=== PATIENT | male | born 1935 | race Caucasian/White ===

== ENCOUNTER → 2016-12-23 | Outpatient (CLI) | payer OTHER, BC | LOC: FIMAGING 12:07 | PROVIDERS: ATTEND Internal Medicine | DX: R05 Cough (principal); G70.00 Myasthenia gravis without (acute) exacerbation; R91.8 Other nonspecific abnormal finding of lung field; E78.00 Pure hypercholesterolemia, unspecified | CPT/HCPCS: 71020; G0463 ==

== ENCOUNTER 2017-06-22 15:47 | Emergency (ER) | payer OTHER, BC ==
[2017-06-22 15:59] VITALS: RESP 18; O2SAT 94
--- NOTE | 2017-06-22 16:46 | EDPHY ---
H & P Time Seen by Provider: 06/22/17 16:19 HPI/ROS: Chief complaint. Weakness, trouble swallowing HPI. 81-year-old male presents emergency department with several complaints. For the last week he has had some trouble swallowing and choking with food. He says his tongue feels heavy. This was intermittent over the past week however over the past 2-3 days it seems to be somewhat worse. Yesterday he fell in the yd after slipping on snow and could not get up by himself. He had transient neck pain yesterday after the fall but no continuing symptoms and no neck pain now. He does have a history of myasthenia gravis. He has had no fever, no chest discomfort no shortness of breath. ROS Constitutional. no fever/chills, no weakness Eyes. no problems with vision ENT. Trouble swallowing Cardiovascular. no chest pain Respiratory. no shortness of breath, no cough Abdominal. no abdominal pain, no nausea/vomiting, no diarrhea . no problems urinating MS. neck pain yesterday but not today Skin. no rash Lymph. no swollen glands Neuro. no headache, no dizziness, no difficulty walking or with speech Past Medical/Surgical History: Past medical history significant for myasthenia gravis, hypertension, atrial fibrillation, CVA Social History: , nonsmoker, no alcohol Smoking Status: Former smoker Physical Exam: General Appearance: Alert well-developed male mild distress vital signs are stable Eyes: Pupils equal and round no pallor or injection. ENT, pharynx without injection or swelling. Mucous membranes are moist. Speaking in full sentences. No stridor. Handling secretions Respiratory: There are no retractions, lungs are clear to auscultation. Cardiovascular: Regular rate and rhythm. Gastrointestinal: Abdomen is soft and nontender, no masses, bowel sounds normal. Neurological: Awake and alert, sensory and motor exams grossly normal. Skin: Warm and dry, no rashes. Musculoskeletal: Neck is supple nontender. No pain with palpation either to paracervical muscles or on the C-spine. No TLS spine tenderness Extremities symmetrical, full range of motion. Psychiatric: Patient is oriented X 3, there is no agitation. Constitutional: Initial Vital Signs Temperature (C) 36.4 C 06/22/17 15:54 Heart Rate 84 06/22/17 15:54 Respiratory Rate 18 06/22/17 15:54 Blood Pressure 162/86 H 06/22/17 15:54 O2 Sat (%) 94 06/22/17 15:54 O2 Delivery Mode Room Air Allergies/Adverse Reactions: No Known Allergies Allergy (Verified 06/22/17 15:59) Home Medications: Medication Instructions Recorded Apixaban [Eliquis] 5 mg PO BID 08/03/15 Atorvastatin Calcium [Lipitor 40 40 mg PO HS 08/03/15 mg (*)] Metoprolol Succinate Xr [Toprol Xl 25 mg PO DAILY 08/03/15 25 mg (*)] Pyridostigmine [place] [Mestinon 180 mg PO BID 08/03/15 Timespan] Triamterene/Hctz 37.5/25 1 tab PO DAILY 08/03/15 [Maxzide-25 (*)] levETIRAcetam [Keppra 500 mg (*)] 500 mg PO BID #60 tab 08/04/15 Epinastine HCl [Elestat] 5 ml OP 06/22/17 Medical Decision Making - Diagnostics Imaging Results: Imaging Impressions Cervical Spine X-Ray 06/22/17 16:47 Impression: 1. Mild to moderate degenerative disk disease mid to lower cervical spine along with facet hypertrophy. 2. Mild anterior subluxation of C5 on C6. This is present on prior CT study from July,. Chest X-Ray 06/22/17 16:47 Impression: 1. Stable calcified pleural plaques bilaterally. 2. Mild interval increase in interstitial markings at the lung bases. This could be from mild dependent interstitial edema/fluid overload. Interstitial infiltrates are felt to be possible as well. Soft Tissue Neck X-Ray 06/22/17 16:47 Impression: 1. No significant soft tissue thickening about the neck. 2. 3 mm of anterior subluxation of C5 on C6. 3. Mild to moderate degenerative disk disease mid to lower cervical spine. Cervical spine x-ray shows mild anterior subluxation of C5 on C6. Soft tissue of the neck shows no evidence of epiglottitis or significant swelling Chest x-ray reviewed by me shows no evidence for pneumonia Procedures: IV normal saline ED Course/Re-evaluation: I consulted and discussed case with Dr. buitrago, neurology who recommends no treatment in the emergency department tonight. He feels that this could well be from my steamy a gravis exacerbation. He will see the patient in the office in the morning. Re-evaluation 1824--patient is stable. No choking or trouble swallowing in the emergency department. No stridor. Continuing to speak in full sentences. The patient and his and I discussed laboratory and imaging studies. We discussed treatment plan including importance of follow-up tomorrow morning with Dr. buitrago. We discussed criteria for return tonight. They expressed understanding and agreement Differential Diagnosis: This is likely a myasthenia gravis exacerbation. No acute findings of airway obstruction or evidence for epiglottitis. - Data Points Laboratory Results: Laboratory Results 06/22/17 16:55 06/22/17 16:55 06/22/17 06/22/17 16:55 16:55 WBC 8.56 10^3/uL 10^3/uL (3.80-9.50) RBC 5.32 10^6/uL 10^6/uL (4.40-6.38) Hgb 16.5 g/dL g/dL (13.7-17.5) Hct 46.8 % % (40.0-51.0) MCV 88.0 fL fL (81.5-99.8) MCH 31.0 pg pg (27.9-34.1) MCHC 35.3 g/dL g/dL (32.4-36.7) RDW 14.7 % % (11.5-15.2) Plt Count 164 10^3/uL 10^3/uL (150-400) MPV 10.2 fL fL (8.7-11.7) Neut % (Auto) 66.1 % % (39.3-74.2) Lymph % (Auto) 19.9 % % (15.0-45.0) [place] % (Auto) 11.0 % % (4.5-13.0) Eos % (Auto) 1.9 % % (0.6-7.6) Baso % (Auto) 0.6 % % (0.3-1.7) Nucleat RBC Rel Count 0.0 % % (0.0-0.2) Absolute Neuts (auto) 5.67 10^3/uL 10^3/uL (1.70-6.50) Absolute Lymphs (auto) 1.70 10^3/uL 10^3/uL (1.00-3.00) Absolute Monos (auto) 0.94 10^3/uL H 10^3/uL (0.30-0.80) Absolute Eos (auto) 0.16 10^3/uL 10^3/uL (0.03-0.40) Absolute Basos (auto) 0.05 10^3/uL 10^3/uL (0.02-0.10) Absolute Nucleated RBC 0.00 10^3/uL 10^3/uL (0-0.01) Immature Gran % 0.5 % % (0.0-1.1) Immature Gran # 0.04 10^3/uL 10^3/uL (0.00-0.10) Sodium 136 mEq/L mEq/L (134-144) Potassium 3.8 mEq/L mEq/L (3.5-5.2) Chloride 104 mEq/L mEq/L (97-110) Carbon Dioxide 25 mEq/l mEq/l (22-31) Anion Gap 7 mEq/L L mEq/L (8-16) BUN 10 mg/dL mg/dL (7-23) Creatinine 0.9 mg/dL mg/dL (0.7-1.3) Estimated GFR > 60 Glucose 97 mg/dL mg/dL (70-100) Calcium 9.7 mg/dL mg/dL (8.5-10.4) Departure - Departure Disposition: Home, Routine, Self-Care Clinical Impression: Myasthenia gravis Condition: Good Instructions: Myasthenia Gravis (ED) Additional Instructions: Caution with eating and drinking tonight to prevent choking. Call Dr. gomez's office tomorrow morning at about 830 in the morning for follow-up appointment tomorrow. Return tonight for worsening symptoms Referrals: Terrence Kennedy MD [Primary Care Provider] - As per Instructions Shelton Gomez DO [Medical Doctor] - 1 day without fail
[2017-06-22 17:10] LABS: % IMMATURE GRANULYOCYTES 0.5 % (0.0-1.1); ABSOLUTE IMMATURE GRANULOCYTES 0.04 10^3/uL (0.00-0.10); ADD DIFF? NO; ADD MORPH? NO; ADD SCAN? NO; ATYPICAL LYMPHOCYTE FLAG 10 (0-99); FRAGMENT RBC FLAG 0 (0-99); HEMATOCRIT 46.8 % (40.0-51.0); HEMOGLOBIN 16.5 g/dL (13.7-17.5); LEFT SHIFT FLG 0 (0-99); LIPEMIA HEMOLYSIS FLAG 90 (0-99); MEAN CELL HEMOGLOBIN CONCENTR. 35.3 g/dL (32.4-36.7); MEAN PLATELET VOLUME 10.2 fL (8.7-11.7); PLATELET CLUMPS FLAG 30 (0-99); PLATELET COUNT 164 10^3/uL (150-400); RED BLOOD CELL COUNT 5.32 10^6/uL (4.40-6.38); RED CELL DISTRIBUTION WIDTH 14.7 % (11.5-15.2)
[2017-06-22 17:16] LABS: ANION GAP 7 mEq/L (8-16); CALCIUM 9.7 mg/dL (8.5-10.4); CARBON DIOXIDE 25 mEq/l (22-31); CHLORIDE 104 mEq/L (97-110); CREATININE 0.9 mg/dL (0.7-1.3); GLOMERULAR FILTRATION RATE > 60; GLUCOSE 97 mg/dL (70-100); POTASSIUM 3.8 mEq/L (3.5-5.2); SODIUM 136 mEq/L (134-144)
[2017-06-22 18:40] VITALS: BP 145/81; PULSE 85; TEMP 98.4
== END 2017-06-22 18:39 | disposition home or self-care (01) ==
DX: G70.00 Myasthenia gravis without (acute) exacerbation (principal); I10 Essential (primary) hypertension; Z79.01 Long term (current) use of anticoagulants; Z86.73 Personal history of transient ischemic attack (TIA), and cerebral infarction without residual deficits; Z87.891 Personal history of nicotine dependence

== ENCOUNTER 2017-06-23 16:01 | Inpatient (IN) | payer OTHER, BC ==
--- NOTE | 2017-06-23 16:28 | PDCONSULT ---
Direct Service Worker Note: Case discussed with Dr. Marck Vallejo. Pt appears to be in myasthenic crisis when seen at my office. Recommend admission for IVIG 2 g/kg divided over 5 days. Begin prednisone 10 mg qd today. Stop Mestinon TS 180 mg bid. Call neurology product inspection coordinator if needed. Pt will need observation for any respiratory problems as well so ICU admission could be considered based on hospitalist opinion. I will formally round on patient tomorrow am.
[2017-06-23] MEDS ORDERED: predniSONE 20 MG TAB PO ONE (16:48)
--- NOTE | 2017-06-23 17:07 | EDPHY ---
H & P Stated Complaint: SWELLING/PAIN IN THROAT/CAN'T SWALLOW/SENT BY DR LLOYD FOR ADMIT Time Seen by Provider: 06/23/17 16:31 HPI/ROS: CHIEF COMPLAINT: Weakness, difficulty swallowing HISTORY OF PRESENT ILLNESS: The patient is an 81-year-old man with a history of myasthenia gravis. He has been taking Mestinon. He was seen here in the ER yesterday for difficulty swallowing and had x-rays done of his neck that were unremarkable. He was recommended to follow up with his neurologist today. He saw Dr. lloyd who suspects a myasthenic crisis and sent him to the ER to receive prednisone and be admitted for IVIG. The patient was also instructed to discontinue his Mestinon. On my evaluation the patient states that he can walk and that he does not feel that bad but his states that he cannot. He is not in any respiratory distress. REVIEW OF SYSTEMS: Constitutional: denies: chills, fever, recent illness, recent injury EENTM: denies: blurred vision, double vision, nose congestion Respiratory: denies: cough, shortness of breath Cardiac: denies: chest pain, irregular heart rate, lightheadedness, palpitations Gastrointestinal/Abdominal: denies: abdominal pain, diarrhea, nausea, vomiting, blood streaked stools Genitourinary: denies: dysuria, frequency, hematuria, pain Musculoskeletal: denies: joint pain, muscle pain Skin: denies: lesions, rash, jaundice, bruising Neurological: Generalized weakness Hematologic/Lymphatic: denies: blood clots, easy bleeding, easy bruising Immunologic/allergic: denies: HIV/AIDS, transplant EXAM: GENERAL: Well-appearing, well-nourished and in no acute distress. HEAD: Atraumatic, normocephalic. EYES: Pupils equal round and reactive to light, extraocular movements intact, sclera anicteric, conjunctiva are normal. ENT: TMs normal, nares patent, oropharynx clear without exudates. Moist mucous membranes. Normal swallowing NECK: Normal range of motion, supple without lymphadenopathy or JVD. LUNGS: Breath sounds clear to auscultation bilaterally and equal. No wheezes rales or rhonchi. HEART: Regular rate and rhythm without murmurs, rubs or gallops. ABDOMEN: Soft, nontender, normoactive bowel sounds. No guarding, no rebound. No masses appreciated. BACK: No CVA tenderness, no spinal tenderness, step-offs or deformities EXTREMITIES: Normal range of motion, no pitting or edema. No clubbing or cyanosis. NEUROLOGICAL: Cranial nerves II through XII grossly intact. Normal speech, normal gait. 4/5 strength throughout, normal movement in all extremities, normal sensation PSYCH: Normal mood, normal affect. SKIN: Warm, dry, normal turgor, no visible rashes or lesions. Source: Patient Exam Limitations: No limitations - Personal History Current Tetanus/Diphtheria Vaccine: Yes - Medical/Surgical History Hx Asthma: No Hx Chronic Respiratory Disease: No Hx Diabetes: No Hx Cardiac Disease: Yes Hx Renal Disease: No Hx Cirrhosis: No Hx Alcoholism: No Hx HIV/AIDS: No Hx Splenectomy or Spleen Trauma: No Other PMH: HTN, myasthenia gravis- on mestonin. afib- on eloquis, tonsillectomy age 2. CVA - Family History Significant Family History: No pertinent family hx - Social History Smoking Status: Former smoker Alcohol Use: Sober Drug Use: None Constitutional: Initial Vital Signs Temperature (C) 37 C 06/23/17 16:05 Heart Rate 80 06/23/17 16:05 Respiratory Rate 20 06/23/17 16:05 Blood Pressure 125/94 H 06/23/17 16:05 O2 Sat (%) 95 06/23/17 16:05 O2 Delivery Mode Room Air Allergies/Adverse Reactions: No Known Allergies Allergy (Verified 06/23/17 16:02) Home Medications: Medication Instructions Recorded Apixaban [Eliquis] 5 mg PO BID 08/03/15 Atorvastatin Calcium [Lipitor 40 40 mg PO HS 08/03/15 mg (*)] Metoprolol Succinate Xr [Toprol Xl 25 mg PO DAILY 08/03/15 25 mg (*)] Pyridostigmine [place] [Mestinon 180 mg PO BID 08/03/15 Timespan] Triamterene/Hctz 37.5/25 1 tab PO DAILY 08/03/15 [Maxzide-25 (*)] Epinastine HCl [Elestat] 5 ml OP BID PRN 06/22/17 Aspirin EC [Aspirin EC 81 mg (*)] 81 mg PO DAILY 06/23/17 Multivitamins [Multivitamin (*)] 1 each PO DAILY 06/23/17 Medical Decision Making ED Course/Re-evaluation: 5:05 p.m. I discussed the case with Dr. Merlos who will admit to the medical service and began IVIG. Differential Diagnosis: Partial list of the Differential diagnosis considered include but were not limited to; myasthenia gravis crisis, generalized weakness, electrolyte abnormality, hypoglycemia and although unlikely based on the history and physical exam, I also considered CVA, sepsis. - Data Points Laboratory Results: Laboratory Results 06/23/17 16:30 06/23/17 16:30 06/23/17 06/23/17 06/23/17 16:30 16:30 16:30 WBC 9.42 10^3/uL 10^3/uL (3.80-9.50) RBC 5.61 10^6/uL 10^6/uL (4.40-6.38) Hgb 17.5 g/dL g/dL (13.7-17.5) Hct 49.5 % % (40.0-51.0) MCV 88.2 fL fL (81.5-99.8) MCH 31.2 pg pg (27.9-34.1) MCHC 35.4 g/dL g/dL (32.4-36.7) RDW 14.7 % % (11.5-15.2) Plt Count 201 10^3/uL 10^3/uL (150-400) MPV 10.0 fL fL (8.7-11.7) Neut % (Auto) 67.3 % % (39.3-74.2) Lymph % (Auto) 19.7 % % (15.0-45.0) [place] % (Auto) 10.7 % % (4.5-13.0) Eos % (Auto) 1.2 % % (0.6-7.6) Baso % (Auto) 0.6 % % (0.3-1.7) Nucleat RBC Rel Count 0.0 % % (0.0-0.2) Absolute Neuts (auto) 6.33 10^3/uL 10^3/uL (1.70-6.50) Absolute Lymphs (auto) 1.86 10^3/uL 10^3/uL (1.00-3.00) Absolute Monos (auto) 1.01 10^3/uL H 10^3/uL (0.30-0.80) Absolute Eos (auto) 0.11 10^3/uL 10^3/uL (0.03-0.40) Absolute Basos (auto) 0.06 10^3/uL 10^3/uL (0.02-0.10) Absolute Nucleated RBC 0.00 10^3/uL 10^3/uL (0-0.01) Immature Gran % 0.5 % % (0.0-1.1) Immature Gran # 0.05 10^3/uL 10^3/uL (0.00-0.10) PT 16.2 SEC H SEC (12.0-15.0) INR 1.30 H (0.83-1.16) APTT 37.7 SEC SEC (23.0-38.0) Sodium 138 mEq/L mEq/L (134-144) Potassium 3.7 mEq/L mEq/L (3.5-5.2) Chloride 106 mEq/L mEq/L (97-110) Carbon Dioxide 24 mEq/l mEq/l (22-31) Anion Gap 8 mEq/L mEq/L (8-16) BUN 10 mg/dL mg/dL (7-23) Creatinine 0.9 mg/dL mg/dL (0.7-1.3) Estimated GFR > 60 Glucose 109 mg/dL H mg/dL (70-100) Calcium 9.6 mg/dL mg/dL (8.5-10.4) Medications Given: Acetaminophen (Tylenol) 650 mg PO DAILY@1899 [facility] Stop: 06/27/17 19:01 Last Admin: 06/23/17 18:43 Dose: 650 mg Diphenhydramine HCl (Benadryl) 25 mg PO DAILY@1899 [facility] Stop: 06/27/17 19:01 Last Admin: 06/23/17 18:43 Dose: 25 mg Immune Globulin (Privigen 20 Gm) 20 gm IV DAILY@1999 [facility] PRN Reason: Protocol Stop: 06/27/17 20:01 Last Admin: 06/23/17 19:39 Dose: 20 gm Immune Globulin (Privigen 10 Gm) 10 gm IV DAILY@1999 [facility] Stop: 06/27/17 20:01 Last Admin: 06/23/17 19:39 Dose: 10 gm Immune Globulin (Privigen 5 Gm) 5 gm IV DAILY@1999 [facility] Stop: 06/27/17 20:01 Last Admin: 06/23/17 19:38 Dose: 5 gm Discontinued Medications Prednisone (Prednisone) 10 mg PO EDNOW ONE Stop: 06/23/17 16:49 Last Admin: 06/23/17 17:02 Dose: 10 mg Departure - Departure Disposition: [facility] Acute Clinical Impression: Myasthenia exacerbation Condition: Fair
[2017-06-23 17:17] LABS: % IMMATURE GRANULYOCYTES 0.5 % (0.0-1.1); ABSOLUTE IMMATURE GRANULOCYTES 0.05 10^3/uL (0.00-0.10); ADD DIFF? NO; ADD MORPH? NO; ADD SCAN? NO; ATYPICAL LYMPHOCYTE FLAG 0 (0-99); FRAGMENT RBC FLAG 0 (0-99); HEMATOCRIT 49.5 % (40.0-51.0); HEMOGLOBIN 17.5 g/dL (13.7-17.5); LEFT SHIFT FLG 0 (0-99); LIPEMIA HEMOLYSIS FLAG 90 (0-99); MEAN CELL HEMOGLOBIN 31.2 pg (27.9-34.1); MEAN CELL HEMOGLOBIN CONCENTR. 35.4 g/dL (32.4-36.7); MEAN CELL VOLUME 88.2 fL (81.5-99.8); PLATELET CLUMPS FLAG 0 (0-99); PLATELET COUNT 201 10^3/uL (150-400); RED BLOOD CELL COUNT 5.61 10^6/uL (4.40-6.38); RED CELL DISTRIBUTION WIDTH 14.7 % (11.5-15.2)
[2017-06-23 17:22] LABS: INR 1.3 (0.83-1.16); PROTIME(PATIENT) 16.2 SEC (12.0-15.0)
[2017-06-23 17:23] LABS: APTT 37.7 SEC (23.0-38.0)
[2017-06-23 17:29] LABS: ANION GAP 8 mEq/L (8-16); CALCIUM 9.6 mg/dL (8.5-10.4); CARBON DIOXIDE 24 mEq/l (22-31); CHLORIDE 106 mEq/L (97-110); CREATININE 0.9 mg/dL (0.7-1.3); GLOMERULAR FILTRATION RATE > 60; GLUCOSE 109 mg/dL (70-100); POTASSIUM 3.7 mEq/L (3.5-5.2); SODIUM 138 mEq/L (134-144)
[2017-06-23] MEDS ORDERED: ONDANSETRON DISINTEGRATING 4 MG TAB PO PRN (17:34)
[2017-06-23] MEDS ORDERED: ACETAMINOPHEN 325 MG TAB PO PRN (17:34)
[2017-06-23] MEDS ORDERED: ONDANSETRON 4 MG/2 ML VIAL IVP PRN (17:34)
[2017-06-23] MEDS ORDERED: EPINASTINE 0.05% 5 ML OPHT.BTL OP PRN (18:01)
[2017-06-23] MEDS: diphenhydrAMINE 25 MG CAP PO SCH (18:43)
[2017-06-23] MEDS: ACETAMINOPHEN 325 MG TAB PO SCH (18:43)
--- NOTE | 2017-06-23 18:48 | GHP ---
[f rep st] HISTORY AND PHYSICAL DATE OF ADMISSION: 06/23/2017 CHIEF COMPLAINT: Myasthenia gravis crisis. HISTORY OF PRESENT ILLNESS: This is an 81-year-old male with history of myasthenia gravis, hypertens ion, hyperlipidemia, seizure in July 2015, who was sent over from Dr. Gomez's clinic today with pr ogressive symptoms. He has been on Mestinon 180 mg since May. However, his symptoms are worse [place] to the point where the ptosis is interfering with his vision. He has had increased weakness wit h walking. Per his , he has been sleeping more the past week. He has had increased cough with d ifficulty swallowing to the point that he is not using a straw. He needed a wheelchair at the clinic today. Denies any fevers, chills, or sweats. No nausea, vomiting, diarrhea. No dysuria. REVIEW OF SYSTEMS: I completed a 10-point review of systems, negative except as noted in HPI. PAST MEDICAL HISTORY: Atrial fibrillation, TIA, possible single seizure in 07/2015, hypertension, hy perlipidemia, asymptomatic left carotid stenosis. PAST SURGICAL HISTORY: Right CEA October 2015. SOCIAL HISTORY: Lives in [place] with his on [address]. Previously worked as a mechanical shovel operator. Sami t cigarettes in 1989 but smoked 2 packs a day for 50 years. No alcohol or illicits. ALLERGIES: No known drug allergies. PAST SURGICAL HISTORY: Tonsillectomy. FAMILY HISTORY: Dad with an RI. Mother with a stroke. HOME MEDICATIONS: Multivitamin, aspirin 81 mg daily, Eliquis 5 mg twice daily, Maxzide 37.5/25 mg da jeanine, Mestinon 180 mg twice daily, metoprolol 25 mg daily XL, Elestat p.r.n., atorvastatin 40. PHYSICAL EXAMINATION: VITAL SIGNS: Temperature 37.0, blood pressure 158/91, heart rate 80s, respira tions 16, 93% on room air. GENERAL: Tired-appearing but no acute distress. HEENT: Ptosis bilatera lly, facial droop bilaterally. Oropharynx clear. No exudates. Airway is patent. CV: Regular rate and rhythm. No murmurs, rubs or gallops. LUNGS: Clear to auscultation. ABDOMEN: Soft, nontender, nondistended. Positive bowel sounds. : No suprapubic tenderness. Musculoskeletal: 4/5 upper ex tremity strength, 5/5 lower extremity strength. Normal sensation to touch. No focal deficits. Righ t carotid surgical incision. PSYCHIATRIC: Alert and oriented x3. LABS: WBC is 9, hemoglobin 17, hematocrit 49, platelets 201. INR is 1.3, PT is 16. Sodium 136, pot assium 3.7, chloride 106, BUN 10, creatinine 0.9, glucose 109, calcium 9.6. ASSESSMENT AND PLAN: 1. Myasthenia gravis crisis: Progressive symptoms despite being on Mestinon [address] Rober Gomez evaluated in clinic today. We will monitor in step-down given concern for loss of airway. We will start IVIG 2 g/kg over 5 days plus prednisone 10 mg daily. Stop Mestinon TS. Will have speech , PT/OT evaluate. 2. Hypertension. Continue home medication. 3. Hyperlipidemia. Continue statin. 4. History of carotid stenosis. Continue aspirin, Plavix. 5. Atrial fibrillation, currently rate controlled, continue Eliquis. 6. Diet regular. 7. DVT prophylaxis on Eliquis. DISPOSITION: Patient warrants inpatient admission given acute myasthenia gravis requiring step-down for frequent monitoring and IVIG. /[id number]/MODL
[2017-06-23] MEDS: IMMUNE GLOBULIN 5 GM/50 ML VIAL IV SCH (19:38)
[2017-06-23] MEDS: IMMUNE GLOBULIN 20 GM/200 ML VIAL IV SCH (19:39)
[2017-06-23] MEDS: IMMUNE GLOBULIN 10 GM/100 ML VIAL IV SCH (19:39)
[2017-06-23] MEDS: APIXABAN 5 MG TAB PO SCH (20:54)
[2017-06-23] MEDS: ATORVASTATIN CALCIUM 40 MG TAB PO SCH (20:54)
[2017-06-23 23:10] LABS: ALBUMIN 3.9 g/dL (3.5-5.0); BILIRUBIN,TOTAL 1.4 mg/dL (0.1-1.4); BILIRUBIN-CONJUGATED 0.5 mg/dL (0.0-0.5); BILIRUBIN-UNCONJUGATED 0.9 mg/dL (0.0-1.1); TOTAL PROTEIN 6.5 g/dL (6.3-8.2)
[2017-06-24 05:46] LABS: ANION GAP 6 mEq/L (8-16); CALCIUM 9.1 mg/dL (8.5-10.4); CARBON DIOXIDE 24 mEq/l (22-31); CHLORIDE 108 mEq/L (97-110); CREATININE 0.9 mg/dL (0.7-1.3); GLOMERULAR FILTRATION RATE > 60; GLUCOSE 105 mg/dL (70-100); POTASSIUM 3.9 mEq/L (3.5-5.2); SODIUM 138 mEq/L (134-144)
[2017-06-24] MEDS ORDERED: predniSONE 10 MG TAB PO SCH (09:00)
[2017-06-24] MEDS: ASPIRIN EC 81 MG TAB PO SCH (09:08)
[2017-06-24] MEDS: MULTIVITAMINS 1 EACH TAB PO SCH (09:08)
[2017-06-24] MEDS: METOPROLOL SUCCINATE XR 25 MG TAB PO SCH (09:08)
[2017-06-24] MEDS: TRIAMTERENE/HCTZ 37.5/25 1 EACH TAB PO SCH (09:08)
[2017-06-24] MEDS: APIXABAN 5 MG TAB PO SCH ×2 (09:09→21:03)
--- NOTE | 2017-06-24 11:33 | PDMN ---
Medical Necessity Medical necessity: est los >2 mn for myasthenia gravis crisis, admitted to ICU/ SDU given concern for loss of airway, IVIG, ST/PT/OT; comorbid htn, hld, afib, carotid stenosis; per order & H&P 06/23/17
--- NOTE | 2017-06-24 11:35 | HOSPPROG ---
Hospitalist Progress Note Assessment/Plan: Myasthenia gravis - On IVIG day 1/5 and Prednisone per neurology, appreciate assistance. Mestinon held. High risk, though no e/o respiratory compromise. Not very cooperative with bedside spirometry. Dysphagia - awaiting speech therapy eval / recs A fib - Metoprolol for rate control, Eliquis for stroke prevention Carotid stenosis - Cont ASA, plavix Hypertension - cont outpt regimen Hyperlipidemia - cont statin Full code Dispo - cont inpt, transfer to med/surg Subjective: Pt feels ok. Denies CP or SOB. Breathing ok. Some difficulty with vision due to worsening ptosis. also reports swallowing problems, wonders if it is safe to drink through a straw. Objective: Vital Signs Temp Pulse Resp BP Pulse Ox 36.3 C 93 19 152/105 H 95 06/24/17 08:00 06/24/17 09:08 06/24/17 08:00 06/24/17 09:08 06/24/17 09:05 Laboratory Results 06/24/17 05:15 06/23/17 06/24/17 06/25/17 05:59 05:59 05:59 Intake Total 550 Balance 550 PT 16.2 SEC (12.0-15.0) H 06/23/17 16:30 INR 1.30 (0.83-1.16) H 06/23/17 16:30 - Physical Exam Constitutional: no apparent distress Eyes: other (+b/l ptosis) Ears, Nose, Mouth, Throat: moist mucous membranes Cardiovascular: regular rate and rhythym Respiratory: no respiratory distress, clear to auscultation, reduced air movement Gastrointestinal: normoactive bowel sounds, soft, non-tender abdomen Skin: warm Musculoskeletal: generalized weakness Psychiatric: interacting appropriately ICD10 Worksheet Patient Problems: Problems Problem Status Onset Myasthenia exacerbation Acute Facial droop Acute Left-sided weakness Acute
--- NOTE | 2017-06-24 15:25 | ASMTCMCOM ---
CM Note CM Note Notes: Pt was admitted with a Myasthenia Gravis exacerbation. Currently having difficulty swallowing, increased weakness, and respiratory distress. Confused - may have baseline dementia, family reported he has not had formal diagnosis.. PT/OT recommending homecare. Pt transferring to . CM will follow for any d/c needs. Date Signed: 06/24/2017 03:24 PM Electronically Signed By:LUISA Page
--- NOTE | 2017-06-24 16:06 | NEUROPROG ---
Assessment: [id number] CC: Follow Up for Myasthenia Gravis Narrative Summary: This was a patient previously followed by Dr. Madrid who last saw him on 08/20. He was having problems with his Myasthenia Gravis with eye droopiness at noon. He was taking Mestinon 60mg TID and Mestinon Timespan 180mg qhs. Dr. Madrid increased his Mestinon Timespan 180mg to bid and stopped the Mestinon. On 08/03/15 he experienced a seizure with Christian's Paralysis so was started on Keppra 500 mg po BID. The MRI was negative for stroke, tumor, or structural etiology. He was also on Eliquis for CVA Afib. He was seen for f/u on 09/24/15. He reported he was actually on Mestinon Timespan 180mg bid and Mestinon 60 mg TID at last visit actually and that this dosing caused headaches. He was now on Mestinon Timespan 180mg bid only and felt while his left eye ptosis was still present it was tolerable and he did not want any change in medication dosing. He denied any further seizures and requested that since this was his only event on 08/03/15 (found down with left sided weakness, negative brain MRI) of possible seizure, he would like to discontinue the Keppra 500 mg bid as it was causing irritability. I will get an EEG and if it is normal he can do a trial of stopping the Keppra (he was counseled on risk of recurrent seizure). He will not drive until event free for 90 days. He also has bilateral asymptomatic carotid stenosis >60% so I will refer to surgery to monitor. He was told to f/u in 3 months. He presented for f/u on 12/16/15. His EEG was normal. He would like to try stopping Keppra as he has had no further passing out spells so we will stop the Keppra. He reports no problems on Time Span Mestinon 180 mg bid so I will continue that. He saw Dr. James and had a right CEA with good results in with plans to f/u in six months to assess the left carotid stenosis. He denied any current problems and will f/u in 3 months. He presented for f/u on 03/17/16. He felt his MG (Myasthenia Gravis) was well controlled on Mestinon TS 180 mg bid and wonders if he could lower to once daily. We will try to lower it and see how he does (he will call for problems) . He was started on aspirin 81 mg qd for stroke prevention but noted an upset stomach and bruising on this medication. He appears to not be tolerating it and is already on Eliquis for stroke prevention so we will stop aspirin. Pt to f/u in six months. F/U on 10/04/16. He has noted intermittent ptosis since decreasing mestinon TS 180mg to qam but does not find this bothersome. I said he can always increase mestinon TS back to bid if needed (he declined at this time). Bruising improving since stopping aspirin and he denied new complaints. He felt good with his current situation and declined anything further. He was told to f/u in six months. F/U on 04/04/17. He reported mestinon TS had upset his stomach so he no longer takes it. He continues to get intermittent ptosis which can affect his vision. However, the ptosis is tolerable and he declined any mestinon, prednisone, or referral to a myasthenia gravis expert. He denied any other weakness or neurologic problems. He will f/u if the ptosis bothers him or worsens. He had decided to stop driving as the ptosis can affect vision. F/U 06/23/17. Pt reported his myasthenia gravis symptoms had been worsening so in May 2017 he had restarted his mestinon TS 180 mg bid. Unfortunately, his symptoms continued to worsen to the point of ptosis interfering with vision , weakness walking, and problems swallowing at times. He needed a wheelchair at our office so his symptoms appear severe. I had him go to the [facility] ER for admission for IVIG and beginning prednisone. After hospital discharge I will likely have him f/u with my partner, Dr. Dimas Vasquez, who has additional training in Myasthenia gravis as the patient will likely need long-term immunosuppression. HPI: Pt seen 06/24/17 as inpatient consult. Pt started IVIG and prednisone 10 mg qd with improvement of symptoms. He feels better today. No new complaints. Breathing well. Swallowing improving. Still with ptosis and proximal arm/leg weakness. PMHx: myasthenia gravis, TIA, afib, possible single seizure on 08/03/15, R CEA , left asymptomatic carotid stenosis FHx: daughter alive SHx: speaks egyptian ROS:Pt denied acute fever, total vision loss, active severe chest pain, respiratory failure, total body severe rash, total bowel/bladder incontinence, psychosis, active seizures, or active bleeding O: VS reviewed General: Alert Eyes: Fundoscopic exam not able to visualize optic disks CV: Heart RRR, no murmur, no carotid bruit Lungs: Clear to auscultation bilaterally, no rhonchi or rales Neuro: - Mental: . Oriented x person/place/date . concentration appears normal . speech fluency/comprehension normal . memory appears normal . fund of knowledge appear intact - Cranial Nerves: . II: PERRL, VFFTC . III/IV/: EOMI, no nystagmus, normal smooth pursuits, bilateral Ptosis . V: facial sensation intact to LT . VII: face symmetric to eye closure and smile . VIII: hearing intact to conversation . IX/X: uvula raises symmetrically . XI: SCM 5/5 B/L strength . XII: tongue protrudes midline w/nl strength - Motor: . Tone: normal tone in all 4 extremity . Strength: bilateral proximal arm/leg weakness - Reflexes: B/L bic 2/4 - Sensory: all 4 extremity intact to light touch - Coord: no ataxia - Gait: deferred Labs: 04/18/15- Ach Rec Mod Ab 90H Ach Bind Ab 5.68H, striated ab neg, anti-Musk ab 0 08/04/15- H1AC 5.4, LDL 46L, TSH wnl Rads: 10/01/15- EEG: normal 08/04/15- Brain MRI w/o con: mod CMVD, atrophy, no stroke 08/03/15- CTA head/neck: Evidence of atherosclerotic disease in both carotid bulbs and both proximal internal carotid arteries more significant on the right with 75% stenosis but 60% on left. There is also evidence of significant atherosclerotic disease and severe stenosis of the right vertebral artery. 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 Myasthenia Gravis: symptoms appear severe with problems swallowing secretions and problems walking so appears to have myasthenic crisis. Admitted to [facility] for 5 days of IVIG and to begin high dose steroids. 2. Afib on Eliquis 3. 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 TIA: stroke risk factor control and continue statin/eliquis 5. B/L Asymptomatic Carotid Stenosis: Pt on statin and anti-coagulation, no clear symptoms from this, had R CEA and General surgery following left carotid stenosis Plan: - Agree with Eliquis for stroke prevention in afib - Work with PCM to ensure Blood pressure goal < 140/90 long-term, LDL goal < 70 , H1AC goal < 7.0 - Work with gen surgery to monitor left carotid stenosis - IVIG as in patient - Increase Mestinon 10 mg qd to 60 mg qd - Hold mestinon at this time - PT/OT consulted - F/U 1-2 weeks after hospital discharge in neurology clinic Neurology will continue to follow closely Objective: Vital Signs Temp Pulse Resp BP Pulse Ox 36.7 C 84 18 126/97 H 95 06/24/17 14:56 06/24/17 14:56 06/24/17 14:56 06/24/17 14:56 06/24/17 14:56 Laboratory Results 06/24/17 05:15 06/23/17 06/24/17 06/25/17 05:59 05:59 05:59 Intake Total 550 Balance 550 PT 16.2 SEC (12.0-15.0) H 06/23/17 16:30 INR 1.30 (0.83-1.16) H 06/23/17 16:30 Allergies/Adverse Reactions: No Known Allergies Allergy (Verified 06/23/17 16:02)
[2017-06-24] MEDS ORDERED: METOPROLOL TARTRATE 5 MG/5 ML INJ IVP PRN (16:27)
[2017-06-24] MEDS: ACETAMINOPHEN 650 MG SUPP PR PRN (20:33)
[2017-06-24] MEDS: ACETAMINOPHEN 325 MG TAB PO SCH (21:02)
[2017-06-24] MEDS: diphenhydrAMINE 25 MG CAP PO SCH (21:03)
[2017-06-24] MEDS: ATORVASTATIN CALCIUM 40 MG TAB PO SCH (21:03)
[2017-06-24] MEDS: IMMUNE GLOBULIN 20 GM/200 ML VIAL IV SCH (21:32)
[2017-06-24] MEDS: IMMUNE GLOBULIN 10 GM/100 ML VIAL IV SCH (21:33)
[2017-06-24] MEDS: IMMUNE GLOBULIN 5 GM/50 ML VIAL IV SCH (21:33)
[2017-06-25] MEDS: POTASSIUM Cl (KCl) 20 MEQ in D5W NS 1,000 ML IV SCH ×2 (05:35→21:52)
[2017-06-25] MEDS ORDERED: predniSONE 20 MG TAB PO SCH (09:00)
[2017-06-25] MEDS: methylPREDNISolone SOD SUCC 125 MG/2 ML VIAL IVP SCH (09:14)
[2017-06-25] MEDS: ASPIRIN EC 81 MG TAB PO SCH (10:47)
[2017-06-25] MEDS: MULTIVITAMINS 1 EACH TAB PO SCH (10:47)
[2017-06-25] MEDS: APIXABAN 5 MG TAB PO SCH (10:47)
[2017-06-25] MEDS: TRIAMTERENE/HCTZ 37.5/25 1 EACH TAB PO SCH (10:47)
[2017-06-25] MEDS: METOPROLOL SUCCINATE XR 25 MG TAB PO SCH (10:47)
--- NOTE | 2017-06-25 11:02 | ASMTCMCOM ---
CM Note CM Note Notes: CM spoke w/pt, and OT therapist re; dc poc. unable to meet pt's needs at home at this time, he needs a lot of assistance w/ ADLs, is cognitively impaired as well as having swallowing issues and is falling at home. requests referral be sent to [facility], CM sent referral. Date Signed: 06/25/2017 11:01 AM Electronically Signed By:Genesis Muhammad RN
--- NOTE | 2017-06-25 11:33 | HOSPPROG ---
Hospitalist Progress Note Assessment/Plan: New pt encounter 81 YO male with long standing Myasthenia Gravis admitted for Myasthenia crisis. Started on IVIG and Prednisone. Sx's worse overnight and this morning, now with worsening dysphagia and difficulty speaking. No resp sx's. Stat CT ordered to r/o stroke but unclear if this will be able to get done due to the patient unable to lay flat. reports that his sx's are very similar to when he gets fatigued at the end of the day Appears to have been getting progressively worse for several weeks. Minimal oral intake. Plan: -Although he has several RF's and hx of CVA, doubt new CVA. Worsening sx's are progression of MG crisis. Cont steroids, IVIG. Hold Mestinon. Neuro to see today. 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 Obtain protein levels. -cont NPO, aspiration risk, cont IVF -Cont Eliquis, unclear why it was held last night #Myasthenia gravis - On IVIG day 2/ and Prednisone per neurology, appreciate assistance. Mestinon held. High risk, though no e/o respiratory compromise. Not very cooperative with bedside spirometry. #Dysphagia - NPO #A fib - Metoprolol for rate control, Eliquis for stroke prevention #Carotid stenosis - Cont ASA, Eliquis, can f/u with surgery as outpatient #Hypertension - cont outpt regimen #Hyperlipidemia - cont statin #Seizure, isolated vs seizure disorder Full code Dispo - cont inpt Subjective: worsening dysphagia. Difficulty talking. Worsening bilateral proximal weakness. Objective: Vital Signs Temp Pulse Resp BP Pulse Ox 37.3 C 85 20 146/90 H 97 06/25/17 07:22 06/25/17 07:22 06/25/17 04:00 06/25/17 07:22 06/25/17 07:22 Laboratory Results 06/24/17 05:15 06/24/17 06/25/17 06/26/17 05:59 05:59 05:59 Intake Total 550 300 Output Total 250 Balance 550 50 PT 16.2 SEC (12.0-15.0) H 06/23/17 16:30 INR 1.30 (0.83-1.16) H 06/23/17 16:30 - Time Spent With Patient Time Spent with Patient: greater than 35 minutes Time Spent with Patient: Greater than 35 minutes spent on this patients care, greater than 50% of time spent counseling, educating, and coordinating care regarding the above mentioned plan. - Physical Exam Constitutional: chronically ill appearing Eyes: PERRL, EOMI Ears, Nose, Mouth, Throat: moist mucous membranes Cardiovascular: regular rate and rhythym Respiratory: no respiratory distress, no rales or rhonchi, clear to auscultation Gastrointestinal: normoactive bowel sounds Skin: warm Musculoskeletal: generalized weakness, other (Proximal weakness) Neurologic: AAOx3, weakness Psychiatric: interacting appropriately, not anxious, not encephalopathic, thought process linear ICD10 Worksheet Patient Problems: Problems Problem Status Onset Myasthenia exacerbation Acute Facial droop Acute Left-sided weakness Acute
[2017-06-25] MEDS ORDERED: D10W 1,000 ML IV PRN (11:35)
[2017-06-25] MEDS ORDERED: LORazepam 2 MG/ML INJ IVP ONE (11:58)
[2017-06-25 12:19] LABS: % IMMATURE GRANULYOCYTES 0.6 % (0.0-1.1); ABSOLUTE IMMATURE GRANULOCYTES 0.05 10^3/uL (0.00-0.10); ADD DIFF? NO; ADD MORPH? NO; ADD SCAN? NO; ATYPICAL LYMPHOCYTE FLAG 0 (0-99); FRAGMENT RBC FLAG 0 (0-99); HEMATOCRIT 48.1 % (40.0-51.0); HEMOGLOBIN 17.1 g/dL (13.7-17.5); LEFT SHIFT FLG 0 (0-99); LIPEMIA HEMOLYSIS FLAG 90 (0-99); MEAN CELL HEMOGLOBIN 31.9 pg (27.9-34.1); MEAN CELL HEMOGLOBIN CONCENTR. 35.6 g/dL (32.4-36.7); MEAN CELL VOLUME 89.7 fL (81.5-99.8); MEAN PLATELET VOLUME 9.5 fL (8.7-11.7); PLATELET CLUMPS FLAG 0 (0-99); PLATELET COUNT 160 10^3/uL (150-400); RED BLOOD CELL COUNT 5.36 10^6/uL (4.40-6.38); RED CELL DISTRIBUTION WIDTH 14.9 % (11.5-15.2)
[2017-06-25 12:28] LABS: APTT 30.5 SEC (23.0-38.0); INR 1.29 (0.83-1.16); PROTIME(PATIENT) 16.1 SEC (12.0-15.0)
[2017-06-25 12:35] LABS: ALANINE AMINOTRANSFERASE 34 IU/L (21-72); ALBUMIN 3.7 g/dL (3.5-5.0); ALKALINE PHOSPHATASE 82 IU/L (38-126); ANION GAP 8 mEq/L (8-16); ASPARTATE AMINOTRANSFERASE 25 IU/L (17-59); BILIRUBIN,TOTAL 1.3 mg/dL (0.1-1.4); CALCIUM 9.3 mg/dL (8.5-10.4); CARBON DIOXIDE 24 mEq/l (22-31); CHLORIDE 108 mEq/L (97-110); CREATININE 0.9 mg/dL (0.7-1.3); GLOMERULAR FILTRATION RATE > 60; GLUCOSE 142 mg/dL (70-100); MAGNESIUM 1.7 mg/dL (1.6-2.3); POTASSIUM 4.3 mEq/L (3.5-5.2); SODIUM 140 mEq/L (134-144); TRIGLYCERIDE 72 mg/dL (40-150)
[2017-06-25] MEDS: ENOXAPARIN 100 MG/ML SYR SC SCH ×2 (12:37→21:52)
--- NOTE | 2017-06-25 14:14 | NEUROPROG ---
Assessment: [id number] CC: Follow Up for Myasthenia Gravis Narrative Summary: This was a patient previously followed by Dr. Madrid who last saw him on 08/20. He was having problems with his Myasthenia Gravis with eye droopiness at noon. He was taking Mestinon 60mg TID and Mestinon Timespan 180mg qhs. Dr. Madrid increased his Mestinon Timespan 180mg to bid and stopped the Mestinon. On 08/03/15 he experienced a seizure with Christian's Paralysis so was started on Keppra 500 mg po BID. The MRI was negative for stroke, tumor, or structural etiology. He was also on Eliquis for CVA Afib. He was seen for f/u on 09/24/15. He reported he was actually on Mestinon Timespan 180mg bid and Mestinon 60 mg TID at last visit actually and that this dosing caused headaches. He was now on Mestinon Timespan 180mg bid only and felt while his left eye ptosis was still present it was tolerable and he did not want any change in medication dosing. He denied any further seizures and requested that since this was his only event on 08/03/15 (found down with left sided weakness, negative brain MRI) of possible seizure, he would like to discontinue the Keppra 500 mg bid as it was causing irritability. I will get an EEG and if it is normal he can do a trial of stopping the Keppra (he was counseled on risk of recurrent seizure). He will not drive until event free for 90 days. He also has bilateral asymptomatic carotid stenosis >60% so I will refer to surgery to monitor. He was told to f/u in 3 months. He presented for f/u on 12/16/15. His EEG was normal. He would like to try stopping Keppra as he has had no further passing out spells so we will stop the Keppra. He reports no problems on Time Span Mestinon 180 mg bid so I will continue that. He saw Dr. James and had a right CEA with good results in with plans to f/u in six months to assess the left carotid stenosis. He denied any current problems and will f/u in 3 months. He presented for f/u on 03/17/16. He felt his MG (Myasthenia Gravis) was well controlled on Mestinon TS 180 mg bid and wonders if he could lower to once daily. We will try to lower it and see how he does (he will call for problems) . He was started on aspirin 81 mg qd for stroke prevention but noted an upset stomach and bruising on this medication. He appears to not be tolerating it and is already on Eliquis for stroke prevention so we will stop aspirin. Pt to f/u in six months. F/U on 10/04/16. He has noted intermittent ptosis since decreasing mestinon TS 180mg to qam but does not find this bothersome. I said he can always increase mestinon TS back to bid if needed (he declined at this time). Bruising improving since stopping aspirin and he denied new complaints. He felt good with his current situation and declined anything further. He was told to f/u in six months. F/U on 04/04/17. He reported mestinon TS had upset his stomach so he no longer takes it. He continues to get intermittent ptosis which can affect his vision. However, the ptosis is tolerable and he declined any mestinon, prednisone, or referral to a myasthenia gravis expert. He denied any other weakness or neurologic problems. He will f/u if the ptosis bothers him or worsens. He had decided to stop driving as the ptosis can affect vision. F/U 06/23/17. Pt reported his myasthenia gravis symptoms had been worsening so in May 2017 he had restarted his mestinon TS 180 mg bid. Unfortunately, his symptoms continued to worsen to the point of ptosis interfering with vision , weakness walking, and problems swallowing at times. He needed a wheelchair at our office so his symptoms appear severe. I had him go to the [facility] ER for admission for IVIG and beginning prednisone. After hospital discharge I will likely have him f/u with my partner, Dr. Dimas Vasquez, who has additional training in Myasthenia gravis as the patient will likely need long-term immunosuppression. Pt seen 06/24/17 as inpatient consult. Pt started IVIG and prednisone 10 mg qd with improvement of symptoms. He feels better today. No new complaints. Breathing well. Swallowing improving. Still with ptosis and proximal arm/leg weakness. HPI: F/U 06/25/17. He awoke confused with problems speaking. We attempted to get a STAT head CT but he had breathing issues lying flat. He was on Eliquis so was not a candidate for any acute IV TPA. Stroke was also felt unlikely as he had known myasthenic crisis and likely awoke in the hospital with an acute confusional state from his medical issues and advanced age. We decided to observe the patient at this time. A few hours later his speech was still dysarthric but he otherwise felt at his baseline. Concern for stroke so will obtain brain MRI. Swallowing issues make Eliquis difficult so will change to Lovenox for acute anticoagulation in setting of afib and prior TIA. Head imaging has been very difficult as patient has had problems lying flat and I feel it is not worth the risk to get the brain MRI at this time if general anesthesia is needed. We cannot confirm if a stroke is present so will proceed with lovenox anticoagulation at this time as his afib places him at high stroke risk if stopped. Pt and his are happy with this plan. We will watch patient closely and continue with IVIG day 3 / 5 and prednisone. PMHx: myasthenia gravis, TIA, afib, possible single seizure on 08/03/15, R CEA , left asymptomatic carotid stenosis FHx: daughter alive SHx: speaks algerian ROS:Pt denied acute fever, total vision loss, active severe chest pain, respiratory failure, total body severe rash, total bowel/bladder incontinence, psychosis, active seizures, or active bleeding Labs: 04/18/15- Ach Rec Mod Ab 90H Ach Bind Ab 5.68H, striated ab neg, anti-Musk ab 0 08/04/15- H1AC 5.4, LDL 46L, TSH wnl Rads: 10/01/15- EEG: normal 08/04/15- Brain MRI w/o con: mod CMVD, atrophy, no stroke 08/03/15- CTA head/neck: Evidence of atherosclerotic disease in both carotid bulbs and both proximal internal carotid arteries more significant on the right with 75% stenosis but 60% on left. There is also evidence of significant atherosclerotic disease and severe stenosis of the right vertebral artery. 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 Myasthenia Gravis: symptoms appear severe with problems swallowing secretions and problems walking so appears to have myasthenic crisis. Admitted to [facility] for 5 days of IVIG and to begin high dose steroids on 06/23/17. 2. Afib on Eliquis 3. 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 TIA: stroke risk factor control and continue statin/eliquis 5. B/L Asymptomatic Carotid Stenosis: Pt on statin and anti-coagulation, no clear symptoms from this, had R CEA and General surgery following left carotid stenosis 6. Dysarthria on awakening on 06/25/17: Pt had confusion and speech issues. Could not get STAT head CT due to breathing issues lying flat. He was on Eliquis so not a TPA candidate and stroke felt less likely at this time. Will get brain MRI to confirm if he had a stroke but continue anticoagualtion with lovenox (swallowing issues prevent Eliquis) until we can confirm the stroke. Plan: - Change eliquis to lovenox for stroke prevention in afib - Work with PCM to ensure Blood pressure goal < 140/90 long-term, LDL goal < 70 , H1AC goal < 7.0 - Work with gen surgery outpatient to monitor left carotid stenosis - IVIG / as in patient - Continue Prednisone 60 mg qd, he will discharge on this dose - restart Mestinon TS 180 mg bid at this time in case his dysarthria is from stopping this medication - PT/OT consulted - F/U 1-2 weeks after hospital discharge in neurology clinic Neurology will continue to follow closely 35 min spent with patient, majority of time discussing his acute confusional state. Objective: Vital Signs Temp Pulse Resp BP Pulse Ox 36.9 C 88 25 H 148/90 H 97 06/25/17 12:30 06/25/17 12:30 06/25/17 12:30 06/25/17 12:30 06/25/17 12:30 Laboratory Results 06/25/17 12:03 06/25/17 12:03 06/24/17 06/25/17 06/26/17 05:59 05:59 05:59 Intake Total 550 300 Output Total 250 Balance 550 50 PT 16.1 SEC (12.0-15.0) H 06/25/17 12:03 INR 1.29 (0.83-1.16) H 06/25/17 12:03 Allergies/Adverse Reactions: No Known Allergies Allergy (Verified 06/23/17 16:02)
[2017-06-25] MEDS ORDERED: METOCLOPRAMIDE 10 MG/2 ML VIAL IVP ONE (16:52)
[2017-06-25] MEDS: ACETAMINOPHEN 325 MG TAB PO SCH (17:56)
[2017-06-25] MEDS: diphenhydrAMINE 25 MG CAP PO SCH (17:56)
[2017-06-25] MEDS: ACETAMINOPHEN 650 MG SUPP PR PRN (19:38)
[2017-06-25] MEDS: IMMUNE GLOBULIN 20 GM/200 ML VIAL IV SCH (20:44)
[2017-06-25] MEDS: IMMUNE GLOBULIN 5 GM/50 ML VIAL IV SCH (20:45)
[2017-06-25] MEDS: IMMUNE GLOBULIN 10 GM/100 ML VIAL IV SCH (20:45)
[2017-06-25] MEDS: PYRIDOSTIGMINE BROMIDE 180 MG TAB.ER PO SCH (21:26)
[2017-06-25] MEDS: ATORVASTATIN CALCIUM 40 MG TAB PO SCH (21:26)
[2017-06-26] MEDS: PYRIDOSTIGMINE BROMIDE 180 MG TAB.ER PO SCH ×2 (09:05→20:02)
[2017-06-26] MEDS: METOPROLOL SUCCINATE XR 25 MG TAB PO SCH (09:05)
[2017-06-26] MEDS: ASPIRIN EC 81 MG TAB PO SCH (09:05)
[2017-06-26] MEDS: MULTIVITAMINS 1 EACH TAB PO SCH (09:05)
[2017-06-26] MEDS: TRIAMTERENE/HCTZ 37.5/25 1 EACH TAB PO SCH (09:06)
[2017-06-26] MEDS: methylPREDNISolone SOD SUCC 125 MG/2 ML VIAL IVP SCH (09:12)
[2017-06-26] MEDS: ENOXAPARIN 100 MG/ML SYR SC SCH ×2 (09:12→20:46)
[2017-06-26] MEDS ORDERED: NS 1,000 ML IV ONE (13:30)
--- NOTE | 2017-06-26 13:48 | NEUROPROG ---
Assessment: [id number] CC: Follow Up for Myasthenia Gravis Narrative Summary: This was a patient previously followed by Dr. Madrid who last saw him on 08/20. He was having problems with his Myasthenia Gravis with eye droopiness at noon. He was taking Mestinon 60mg TID and Mestinon Timespan 180mg qhs. Dr. Madrid increased his Mestinon Timespan 180mg to bid and stopped the Mestinon. On 08/03/15 he experienced a seizure with Christian's Paralysis so was started on Keppra 500 mg po BID. The MRI was negative for stroke, tumor, or structural etiology. He was also on Eliquis for CVA Afib. He was seen for f/u on 09/24/15. He reported he was actually on Mestinon Timespan 180mg bid and Mestinon 60 mg TID at last visit actually and that this dosing caused headaches. He was now on Mestinon Timespan 180mg bid only and felt while his left eye ptosis was still present it was tolerable and he did not want any change in medication dosing. He denied any further seizures and requested that since this was his only event on 08/03/15 (found down with left sided weakness, negative brain MRI) of possible seizure, he would like to discontinue the Keppra 500 mg bid as it was causing irritability. I will get an EEG and if it is normal he can do a trial of stopping the Keppra (he was counseled on risk of recurrent seizure). He will not drive until event free for 90 days. He also has bilateral asymptomatic carotid stenosis >60% so I will refer to surgery to monitor. He was told to f/u in 3 months. He presented for f/u on 12/16/15. His EEG was normal. He would like to try stopping Keppra as he has had no further passing out spells so we will stop the Keppra. He reports no problems on Time Span Mestinon 180 mg bid so I will continue that. He saw Dr. James and had a right CEA with good results in with plans to f/u in six months to assess the left carotid stenosis. He denied any current problems and will f/u in 3 months. He presented for f/u on 03/17/16. He felt his MG (Myasthenia Gravis) was well controlled on Mestinon TS 180 mg bid and wonders if he could lower to once daily. We will try to lower it and see how he does (he will call for problems) . He was started on aspirin 81 mg qd for stroke prevention but noted an upset stomach and bruising on this medication. He appears to not be tolerating it and is already on Eliquis for stroke prevention so we will stop aspirin. Pt to f/u in six months. F/U on 10/04/16. He has noted intermittent ptosis since decreasing mestinon TS 180mg to qam but does not find this bothersome. I said he can always increase mestinon TS back to bid if needed (he declined at this time). Bruising improving since stopping aspirin and he denied new complaints. He felt good with his current situation and declined anything further. He was told to f/u in six months. F/U on 04/04/17. He reported mestinon TS had upset his stomach so he no longer takes it. He continues to get intermittent ptosis which can affect his vision. However, the ptosis is tolerable and he declined any mestinon, prednisone, or referral to a myasthenia gravis expert. He denied any other weakness or neurologic problems. He will f/u if the ptosis bothers him or worsens. He had decided to stop driving as the ptosis can affect vision. F/U 06/23/17. Pt reported his myasthenia gravis symptoms had been worsening so in May 2017 he had restarted his mestinon TS 180 mg bid. Unfortunately, his symptoms continued to worsen to the point of ptosis interfering with vision , weakness walking, and problems swallowing at times. He needed a wheelchair at our office so his symptoms appear severe. I had him go to the [facility] ER for admission for IVIG and beginning prednisone. After hospital discharge I will likely have him f/u with my partner, Dr. Dimas Vasquez, who has additional training in Myasthenia gravis as the patient will likely need long-term immunosuppression. Pt seen 06/24/17 as inpatient consult. Pt started IVIG and prednisone 10 mg qd with improvement of symptoms. He feels better today. No new complaints. Breathing well. Swallowing improving. Still with ptosis and proximal arm/leg weakness. F/U 06/25/17. He awoke confused with problems speaking. We attempted to get a STAT head CT but he had breathing issues lying flat. He was on Eliquis so was not a candidate for any acute IV TPA. Stroke was also felt unlikely as he had known myasthenic crisis and likely awoke in the hospital with an acute confusional state from his medical issues and advanced age. We decided to observe the patient at this time. A few hours later his speech was still dysarthric but he otherwise felt at his baseline. Concern for stroke so will obtain brain MRI. Swallowing issues make Eliquis difficult so will change to Lovenox for acute anticoagulation in setting of afib and prior TIA. Head imaging has been very difficult as patient has had problems lying flat and I feel it is not worth the risk to get the brain MRI at this time if general anesthesia is needed. We cannot confirm if a stroke is present so will proceed with lovenox anticoagulation at this time as his afib places him at high stroke risk if stopped. Pt and his are happy with this plan. We will watch patient closely and continue with IVIG day 3 / 5 and prednisone. HPI: F/U 06/26/17. Brain MRI negative for any acute stroke. Day 4 / 5 IVIG and prednisone. Pt doing much better. Able to walk around better and less ptosis. Speech much improved but still some dysarthria. PT/OT/Speech working with patient and likely to inpt rehab after discharge. PMHx: myasthenia gravis, TIA, afib, possible single seizure on 08/03/15, R CEA , left asymptomatic carotid stenosis FHx: daughter alive SHx: speaks tristanian ROS:Pt denied acute fever, total vision loss, active severe chest pain, respiratory failure, total body severe rash, total bowel/bladder incontinence, psychosis, active seizures, or active bleeding Labs: 04/18/15- Ach Rec Mod Ab 90H Ach Bind Ab 5.68H, striated ab neg, anti-Musk ab 0 08/04/15- H1AC 5.4, LDL 46L, TSH wnl Rads: 10/01/15- EEG: normal 08/04/15- Brain MRI w/o con: mod CMVD, atrophy, no stroke 08/03/15- CTA head/neck: Evidence of atherosclerotic disease in both carotid bulbs and both proximal internal carotid arteries more significant on the right with 75% stenosis but 60% on left. There is also evidence of significant atherosclerotic disease and severe stenosis of the right vertebral artery. 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 Myasthenia Gravis (MG) crisis: symptoms appear severe with problems swallowing secretions and problems walking so appears to have myasthenic crisis. Brain MRI on 06/25/17 showed no stroke so symptoms of dysarthria attributed to MG. Admitted to [facility] for 5 days of IVIG and to begin high dose steroids on 06/23/17. 2. History of TIA and has known Afib: on Eliquis outpatient but changed to Lovenox inpatient due to swallowing issues Plan: - Change eliquis to lovenox for stroke prevention in afib (change back to Eliquis when he can swallow) - Work with PCM to ensure Blood pressure goal < 140/90 long-term, LDL goal < 70 , H1AC goal < 7.0 given history of TIA in past - IVIG 4 / 5 as in patient - Continue Prednisone 60 mg qd, he will discharge on this dose - restart Mestinon TS 180 mg bid at this time in case his dysarthria is from stopping this medication (will need to wait until he can swallow safely) - PT/OT/ST consulted and working with patient, likely to inpt rehab after discharge - F/U 1-2 weeks after hospital discharge in neurology clinic Neurology will sign off but will be happy to get re-involved if needed. 35 min spent with patient, majority of time discussing his myasthenia gravis. Objective: Vital Signs Temp Pulse Resp BP Pulse Ox 36.6 C 90 18 142/88 H 94 06/26/17 12:00 06/26/17 12:00 06/26/17 12:00 06/26/17 12:00 06/26/17 12:00 Laboratory Results 06/25/17 12:03 06/25/17 12:03 06/25/17 06/26/17 06/27/17 05:59 05:59 05:59 Intake Total 300 800 Output Total 250 200 Balance 50 600 PT 16.1 SEC (12.0-15.0) H 06/25/17 12:03 INR 1.29 (0.83-1.16) H 06/25/17 12:03 Allergies/Adverse Reactions: No Known Allergies Allergy (Verified 06/23/17 16:02)
--- NOTE | 2017-06-26 13:53 | HOSPPROG ---
Hospitalist Progress Note Assessment/Plan: New pt encounter 81 YO male with long standing Myasthenia Gravis admitted for Myasthenia crisis. Started on IVIG and Prednisone. Mestonin restarted on 06/25. Overall much improved overnight. MRI with no e/o stroke. Dysphagia appears to be improving as well. Plan: -rehab consult -ST to re-eval today to determine if he can eat -hold off on tube feeds for now. If he needs it, he will not be a good candidate for oral-gastri or oral-duodenal tube due to agitation and sundowning. Would favor short course of TPN. He may not need anything if he is able to eat -Cont with IVIG, Pred, and Mestinon -Hydralazine PRN for BP mgmt. BP reading have been labile with reading to include systolic 107-166. -Cont Lovenox BID #Myasthenia gravis - On IVIG day 2/5 and Prednisone per neurology, appreciate assistance. Mestinon held. High risk, though no e/o respiratory compromise. Not very cooperative with bedside spirometry. #Dysphagia - NPO #A fib - Metoprolol for rate control, previously on Eliquis, change to lovenox due to dysphagia #Carotid stenosis - Cont ASA, Eliquis, can f/u with surgery as outpatient #Hypertension - cont outpt regimen #Hyperlipidemia - cont statin #Seizure, isolated vs seizure disorder Full code Dispo - cont inpt. Discharge soon Subjective: Feels better. was able to walk in [place]. speech is better. H says swallowing is better too. Objective: Vital Signs Temp Pulse Resp BP Pulse Ox 36.6 C 90 18 142/88 H 94 06/26/17 12:00 06/26/17 12:00 06/26/17 12:00 06/26/17 12:00 06/26/17 12:00 Laboratory Results 06/25/17 12:03 06/25/17 12:03 06/25/17 06/26/17 06/27/17 05:59 05:59 05:59 Intake Total 300 800 Output Total 250 200 Balance 50 600 PT 16.1 SEC (12.0-15.0) H 06/25/17 12:03 INR 1.29 (0.83-1.16) H 06/25/17 12:03 - Physical Exam Constitutional: no apparent distress, chronically ill appearing Eyes: PERRL, EOMI Ears, Nose, Mouth, Throat: moist mucous membranes Cardiovascular: regular rate and rhythym Respiratory: no respiratory distress, no rales or rhonchi, clear to auscultation Gastrointestinal: normoactive bowel sounds, soft, non-tender abdomen Skin: warm Neurologic: AAOx3 Psychiatric: interacting appropriately, not anxious, not encephalopathic ICD10 Worksheet Patient Problems: Problems Problem Status Onset Myasthenia exacerbation Acute Facial droop Acute Left-sided weakness Acute
[2017-06-26] MEDS: POTASSIUM Cl (KCl) 20 MEQ in D5W NS 1,000 ML IV SCH (15:01)
[2017-06-26] MEDS: ACETAMINOPHEN 650 MG SUPP PR PRN (19:28)
[2017-06-26] MEDS: ATORVASTATIN CALCIUM 40 MG TAB PO SCH (20:01)
[2017-06-26] MEDS: ACETAMINOPHEN 325 MG TAB PO SCH (20:01)
[2017-06-26] MEDS: diphenhydrAMINE 25 MG CAP PO SCH (20:01)
[2017-06-26] MEDS: IMMUNE GLOBULIN 5 GM/50 ML VIAL IV SCH (20:07)
[2017-06-26] MEDS: IMMUNE GLOBULIN 20 GM/200 ML VIAL IV SCH (20:07)
[2017-06-26] MEDS: IMMUNE GLOBULIN 10 GM/100 ML VIAL IV SCH (20:07)
[2017-06-27] MEDS: POTASSIUM Cl (KCl) 20 MEQ in D5W NS 1,000 ML IV SCH ×2 (06:04→19:06)
[2017-06-27] MEDS: methylPREDNISolone SOD SUCC 125 MG/2 ML VIAL IVP SCH (10:03)
[2017-06-27] MEDS: ENOXAPARIN 100 MG/ML SYR SC SCH ×2 (10:03→20:32)
[2017-06-27] MEDS: ASPIRIN EC 81 MG TAB PO SCH (11:35)
[2017-06-27] MEDS: METOPROLOL SUCCINATE XR 25 MG TAB PO SCH (11:35)
[2017-06-27] MEDS: MULTIVITAMINS 1 EACH TAB PO SCH (11:36)
[2017-06-27] MEDS: PYRIDOSTIGMINE BROMIDE 180 MG TAB.ER PO SCH ×2 (11:36→21:06)
[2017-06-27] MEDS: TRIAMTERENE/HCTZ 37.5/25 1 EACH TAB PO SCH (11:36)
--- NOTE | 2017-06-27 13:41 | HOSPPROG ---
Hospitalist Progress Note Assessment/Plan: #Myasthenia gravis crisis -On IVIG day 4/5 and IV steroid (as NPO so unable to take PO prednisone) -Revwd care plan with Dr Gomez (had signed off last week) bc of swallow results today, plan for neuro to re-eval tomorrow and assist with dispo planning -Mestinon being held bc of swallow study- high risk aspiration -discussed dispo issues if unable to swallow, home care vs SNF -consider palliative consult #Dysphagia -NPO, confirmed/unchanged eval today -trial dobhoff, TPN an option also vs PEG #A fib - was on metoprolol for rate control, but being held as not taking PO -previously on Eliquis, now on lovenox due to dysphagia #Carotid stenosis -holding ASA, Eliquis bc of dysphagia #Hypertension -holding outpt regimen bc of swallow inability -BPs stable, has PRNs #Hyperlipidemia -holding statin Full code PCP Fanestil Dispo > 2 mdnts due to feeding issues, need to review dispo plan bc of ongoing dysphagia >30 mins with him/family and coordination of care Subjective: Doing OK per him, family. Has had some issues in evenings with behavior per notes/. Willing to try feeding tube, but unsure if will be able to keep it in. Discussed swallowing study unchanged, if feeding tube through nose doesn't stay, then will need to review possible PEG/other options. Objective: Vital Signs Temp Pulse Resp BP Pulse Ox 97.4 F 68 18 141/81 H 97 06/27/17 08:30 06/27/17 08:30 06/27/17 08:30 06/27/17 08:30 06/27/17 08:30 Laboratory Results 06/25/17 12:03 06/25/17 12:03 06/26/17 06/27/17 06/28/17 11:59 11:59 11:59 Intake Total 800 2250 Output Total 200 Balance 600 2250 PT 16.1 SEC (12.0-15.0) H 06/25/17 12:03 INR 1.29 (0.83-1.16) H 06/25/17 12:03 - Time Spent With Patient Time Spent with Patient: greater than 35 minutes Time Spent with Patient: Greater than 35 minutes spent on this patients care, greater than 50% of time spent counseling, educating, and coordinating care regarding the above mentioned plan. - Physical Exam Constitutional: no apparent distress, not in pain Ears, Nose, Mouth, Throat: moist mucous membranes Cardiovascular: regular rate and rhythym Respiratory: no respiratory distress, no rales or rhonchi, clear to auscultation Gastrointestinal: soft, non-tender abdomen Psychiatric: interacting appropriately, not anxious ICD10 Worksheet Patient Problems: Problems Problem Status Onset Myasthenia exacerbation Acute Facial droop Acute Left-sided weakness Acute
[2017-06-27] MEDS: ACETAMINOPHEN 650 MG SUPP PR PRN (19:47)
[2017-06-27] MEDS: ACETAMINOPHEN 325 MG TAB PO SCH (20:09)
[2017-06-27] MEDS: diphenhydrAMINE 25 MG CAP PO SCH (20:10)
[2017-06-27] MEDS: IMMUNE GLOBULIN 20 GM/200 ML VIAL IV SCH (20:30)
[2017-06-27] MEDS: IMMUNE GLOBULIN 10 GM/100 ML VIAL IV SCH (20:30)
[2017-06-27] MEDS: IMMUNE GLOBULIN 5 GM/50 ML VIAL IV SCH (20:31)
[2017-06-28 05:21] LABS: % IMMATURE GRANULYOCYTES 0.3 % (0.0-1.1); ABSOLUTE IMMATURE GRANULOCYTES 0.02 10^3/uL (0.00-0.10); ADD DIFF? NO; ADD MORPH? NO; ADD SCAN? NO; ATYPICAL LYMPHOCYTE FLAG 0 (0-99); FRAGMENT RBC FLAG 0 (0-99); HEMATOCRIT 44.9 % (40.0-51.0); HEMOGLOBIN 15.7 g/dL (13.7-17.5); LEFT SHIFT FLG 0 (0-99); LIPEMIA HEMOLYSIS FLAG 90 (0-99); MEAN CELL HEMOGLOBIN 31.6 pg (27.9-34.1); MEAN CELL VOLUME 90.3 fL (81.5-99.8); PLATELET CLUMPS FLAG 0 (0-99); PLATELET COUNT 126 10^3/uL (150-400); RED BLOOD CELL COUNT 4.97 10^6/uL (4.40-6.38); RED CELL DISTRIBUTION WIDTH 15.6 % (11.5-15.2)
[2017-06-28 05:24] LABS: ANION GAP 6 mEq/L (8-16); CARBON DIOXIDE 23 mEq/l (22-31); CHLORIDE 110 mEq/L (97-110); CREATININE 1.1 mg/dL (0.7-1.3); GLOMERULAR FILTRATION RATE > 60; GLUCOSE 110 mg/dL (70-100); POTASSIUM 4.4 mEq/L (3.5-5.2); SODIUM 139 mEq/L (134-144)
[2017-06-28] MEDS: POTASSIUM Cl (KCl) 20 MEQ in D5W NS 1,000 ML IV SCH ×2 (09:24→19:04)
[2017-06-28] MEDS: PYRIDOSTIGMINE BROMIDE 180 MG TAB.ER PO SCH (09:28)
[2017-06-28] MEDS: ASPIRIN EC 81 MG TAB PO SCH (09:28)
--- NOTE | 2017-06-28 10:26 | NEUROPROG ---
Assessment: Asked to revisit with patient due to dysphagia. Patient has myasthenia gravis and was admitted for IVIG and steroid initiation due to worsening weakness leaving him with ptosis and extremity weakness to where he was wheelchair bound. He completed 5 days IVIG yesterday. During his hospitalization he's been having worsening swallowing and fluoroscopic video analysis showed silent aspiration. He is now NPO. Today I was able to examine the patient and noted he does still have fatiguable ptosis and extremity weakness. He can not elevate his LUE against gravity. His speech is breathy and hypophonic. His breathing appears shallow. He has reported SOB to his . He is unable to get past counting to 8 in a single breath. Given his worsening weakness, particularly bulbar/respiratory muscles, I am very concerned about impending crisis with respiratory failure. His IVIG may take several days to take effect. His steroids may take weeks to peak. I had a long discussion with the patient and his . Main issues today center around aggressiveness of care. Patient indicates he does not want a feeding tube. He also seems to indicate he wants to be DNR. If we pursue aggressive interventions, he would need 5 days of plasma exchange/ dialysis catheter placement, q4hour respiratory mechanics (NIF/VC) with ICU monitoring, PEG and possibly mechanical ventilation if respiratory mechanics decline. Will pull a baseline NIF/VC now. Cont IV steroid since NPO. Patient and to discuss goals of treatment regarding aggressiveness today and make a decision within the next few hours. Family meeting tomorrow AM with his children. RT, nursing and primary hospitalist advised of these issues. Patient critically ill with myasthenia crisis and possible impending respiratory compromise. 50 mins CC time. Objective: Vital Signs Temp Pulse Resp BP Pulse Ox 36.6 C 81 22 H 158/89 H 91 L 06/28/17 07:46 06/28/17 07:46 06/28/17 07:46 06/28/17 07:46 06/28/17 07:46 Laboratory Results 06/28/17 04:28 06/28/17 04:28 06/27/17 06/28/17 06/29/17 05:59 05:59 05:59 Intake Total 2250 1550 Output Total 2 Balance 2250 1548 PT 16.1 SEC (12.0-15.0) H 06/25/17 12:03 INR 1.29 (0.83-1.16) H 06/25/17 12:03 Allergies/Adverse Reactions: No Known Allergies Allergy (Verified 06/23/17 16:02)
--- NOTE | 2017-06-28 10:48 | ASMTCMCOM ---
CM Note CM Note Notes: Pt continues w/difficulty with swallowing and sob. Neurologist spoke w/ re; what aggresive tx will look like. Meeting w/ pt's children, , and neuro to take place tomorrow at 10am. Palliative consult ordered, ELISE w/f. Date Signed: 06/28/2017 10:47 AM Electronically Signed By:Genesis Muhammad RN
[2017-06-28] MEDS: ENOXAPARIN 100 MG/ML SYR SC SCH ×2 (10:57→20:19)
[2017-06-28] MEDS: methylPREDNISolone SOD SUCC 125 MG/2 ML VIAL IVP SCH (10:57)
--- NOTE | 2017-06-28 15:23 | HOSPPROG ---
Hospitalist Progress Note Assessment/Plan: #Myasthenia gravis crisis -finished 5 days of IVIG and is going to continue on IV steroid (as NPO so unable to take PO prednisone) -Revwd care plan with Dr Pastor, palliative time, family extensively -planned family meeting tomorrow AM -Mestinon being held bc of swallow study- high risk aspiration #Dysphagia -NPO -family unsure re PEG, declining NG/dobhoff and TPN for now #A fib - was on metoprolol for rate control, but being held as not taking PO -previously on Eliquis, now on lovenox due to dysphagia #Carotid stenosis -holding ASA, Eliquis bc of dysphagia #Hypertension -holding outpt regimen bc of swallow inability -BPs stable, has PRNs #Hyperlipidemia -holding statin Full code (but family to discuss code status and care plan in general in detail) PCP Fanestil Dispo > 2 mdnts due to feeding issues, need to review dispo plan bc of ongoing dysphagia >30 mins with him/family and coordination of care Subjective: Daughter and at bedside. No CP/SOB/pain. Family discussing care plan with neurology, palliative also. Objective: Vital Signs Temp Pulse Resp BP Pulse Ox 98 F 80 20 159/93 H 91 L 06/28/17 12:00 06/28/17 12:00 06/28/17 12:00 06/28/17 12:00 06/28/17 12:00 Laboratory Results 06/28/17 04:28 06/28/17 04:28 06/27/17 06/28/17 06/29/17 11:59 11:59 11:59 Intake Total 2250 1550 Output Total 2 Balance 2250 1548 PT 16.1 SEC (12.0-15.0) H 06/25/17 12:03 INR 1.29 (0.83-1.16) H 06/25/17 12:03 - Physical Exam Constitutional: no apparent distress, not in pain, chronically ill appearing Eyes: other (ptosis) Cardiovascular: regular rate and rhythym Respiratory: no respiratory distress, no rales or rhonchi, clear to auscultation Gastrointestinal: soft, non-tender abdomen Psychiatric: interacting appropriately, not anxious ICD10 Worksheet Patient Problems: Problems Problem Status Onset Myasthenia exacerbation Acute Palliative care encounter Acute Facial droop Acute Left-sided weakness Acute
[2017-06-28] MEDS: hydrALAZINE 20 MG/ML VIAL IVP PRN (16:13)
--- NOTE | 2017-06-28 16:35 | PDPCPN ---
Palliative Care Progress Note Assessment/Plan: Referring provider: Dr Blair Reason for consult: Complex medical decision making Symptom control HPI: Haile Aguilar is a 81 yo with PMH myasthenia gravis, HTN, and seizure admitted to the hospital from her outpt neurologist office for increasing weakness and concern for acute MG crisis. Treated with IVIG as well as steroids. Hospitalization complicated by dysphagia with failing VFSS and being NPO. Also concern with potential for progressing resp failure 2/2 MG crisis. Palliative care consulted for complex medical decision making. Met with Tatiana and daughter Ginny at the bedside today. They state Haile has been having increasing short term memory loss over the past year and Tatiana wondered if he might have dementia. Haile had been doing ok at home with a fairly good quality of life up until 2 weeks ago. They understand the medical situation and are hoping for further clarification tomorrow morning with the rest of the family present. They do not feel like Haile would tolerate any tubes whether it is a PEG or other tubes but are hoping he can get stronger and improve. He normally likes to be outdoors and active. The family would like to see Haile improve and realize he may get worse. We discussed code status as well as intubation. Haile stated while he doesn't really want to be intubated if it were temporary that would improve his status close to his baseline then he would want intubation. Assessment: Physical: - Pain: denies pain -tylenol PRN - Dyspnea: states none - oxygen if needed - dysphagia: - due to confusion stephen would likely be pulled out - family is unsure if Haile would tolerate/want a PEG tube Emotional/psychological: Has some short term memory loss. acute confusion: with agitation - consider low dose zyprexa zydis 2.5 mg QHS to help or haldol PRN Advanced Care Planning: Is patient decisional?: Yes with help Code Status: Full- would want temporary intubation if needed MD SINGLETON: is DAMION. Plan: Family is meeting with neurology tomorrow AM. They would like Haile to get stronger but also value quality of life and are interested in whether Haile could return to an improved quality of life after this hospitalization. Subjective: i'm ok Objective: Social History: to Tatiana. Has 5 children, 4 are involved. Worked as part of the [employer] for 36 years. Likes to be physically active as well as being outdoors. [place]. Medication list reviewed ROS: General: fatigue, weakness ENT: dysphagia Resp: cough GI: negative : negative MS: negative Skin: negative Neuro: negative Psych: agitation, confusion Functional assessment: PPS: 50% Functional status: dependent on ADLs, IADLs Vital Signs Temp Pulse Resp BP Pulse Ox 36.1 C 95 18 165/104 H 93 06/28/17 15:46 06/28/17 15:46 06/28/17 15:46 06/28/17 15:46 06/28/17 15:46 Laboratory Results 06/28/17 04:28 06/28/17 04:28 06/27/17 06/28/17 06/29/17 05:59 05:59 05:59 Intake Total 2250 1550 Output Total 2 Balance 2250 1548 PT 16.1 SEC (12.0-15.0) H 06/25/17 12:03 INR 1.29 (0.83-1.16) H 06/25/17 12:03 Physical Exam - Physical Exam General Appearance: alert, no apparent distress Respiratory: No respiratory distress, No accessory muscle use Skin: normal color, warm/dry Extremities: No pedal edema Neuro/Psych: alert, oriented x 3 ICD10 Worksheet Patient Problems: Problems Problem Status Onset Myasthenia exacerbation Acute Palliative care encounter Acute Facial droop Acute Left-sided weakness Acute - ICD10 Problem Qualifiers (1) Palliative care encounter
[2017-06-29] MEDS: hydrALAZINE 20 MG/ML VIAL IVP PRN (05:39)
[2017-06-29] MEDS: POTASSIUM Cl (KCl) 20 MEQ in D5W NS 1,000 ML IV SCH ×2 (06:42→21:55)
--- NOTE | 2017-06-29 10:01 | NEUROPROG ---
Assessment: Patient was seen with brief and focused exam. Majority of today's visit was spent in discussing goals of care with patient and family. Patient feels stable. Still having a little SOB. Still weak throughout, and still noting ptosis. Focused exam shows him to have baseline ptosis which is fatiguable. He is still unable to elevate the LUE much, and has fatiguable weakness in the RUE. Vocal volume is improved, but clearly declines and becomes breathy with prolonged verbal effort. He still can't count past 8 in one breath. Respiratory mechanics were drawn yesterday showing VC < 500cc. Long discussion with family and patient. We reviewed aggressive measures, including plasma exchange, respiratory mechanics surveillance, ICU monitoring, elective intubation, PEG placement, code status. It may be he had transient worsening of MG with initiation of steroid, but could also just be natural fluctuation/worsening of his disease - generally concomitant administration of IVIG/plasma exchange with steroid confers some protection against worsening due to steroid. Family and patient made it clear that patient wants to extend life a bit more with focus on quality of life and comfort. They would not like to stop all supportive measures as of now, but do not want aggressive medical interventions. Specifically, patient and family would like him to be DNR - this has been expressed by patient in the past and his living will reflects this. He does not want elective intubation, even if temporary, out of concern it may be permanent. He does not want further to do plasma exchange. He would like to go ahead with PEG so he can get nutrition, hydration and medications. This was discussed with Dr. Michaels who will facilitate the patient's wishes. He can have PEG placed in next 1-2 days, start PEG feedings thereafter. He can be transitioned to prednisone 60mg daily via PEG. He can also restart pyridostigmine immediate release (no SR due to need to crush) in either crushed pill or syrup form at a dose of 180mg four times daily. He will be transitioned to a SNF after PEG placed and monitored. He can followup with Dr. Vasquez after discharge (our neuromuscular focused neurologist). Would advise continued/ongoing discussion with our palliative care colleagues, as well. Patient critically ill with myasthenia crisis. 45 mins CC time. Objective: Vital Signs Temp Pulse Resp BP Pulse Ox 36.4 C 104 H 22 H 175/102 H 20 L 06/29/17 07:41 06/29/17 07:41 06/29/17 07:41 06/29/17 07:41 06/29/17 07:41 Laboratory Results 06/28/17 04:28 06/28/17 04:28 06/28/17 06/29/17 06/30/17 05:59 05:59 05:59 Intake Total 1550 1950 Output Total 2 Balance 1548 1950 PT 16.1 SEC (12.0-15.0) H 06/25/17 12:03 INR 1.29 (0.83-1.16) H 06/25/17 12:03 Allergies/Adverse Reactions: No Known Allergies Allergy (Verified 06/23/17 16:02)
[2017-06-29] MEDS: ENOXAPARIN 100 MG/ML SYR SC SCH ×2 (10:24→21:55)
[2017-06-29] MEDS: methylPREDNISolone SOD SUCC 125 MG/2 ML VIAL IVP SCH (10:40)
--- NOTE | 2017-06-29 10:57 | HOSPPROG ---
Hospitalist Progress Note Assessment/Plan: # myasthenia crisis - s/p IVIG x 5 days; some improvement - cont steroids (solu-medrol while NPO), pred 60 via peg - hold Mestinon, restart at 180mg QID - neurology input appreciated # dysphagia - NPO for now; will discuss PEG with GI # a-fib - eliquis at home, levnox here (last dose 06/28 in pm) - metop on hold # htn - elevated but not getting PO meds - restart PO meds imani - getting hydralazine IV prn for now # carotid stenosis - holding asa for now, lovenox # hld - restart statin via PEG # goals of care - DNR, no plasmapheresis, PEG Subjective: feels slightly better today; met with family and patient - discussed goals of care Objective: Vital Signs Temp Pulse Resp BP Pulse Ox 36.4 C 104 H 22 H 175/102 H 20 L 06/29/17 07:41 06/29/17 07:41 06/29/17 07:41 06/29/17 07:41 06/29/17 07:41 Laboratory Results 06/28/17 04:28 06/28/17 04:28 06/28/17 06/29/17 06/30/17 05:59 05:59 05:59 Intake Total 1550 1950 Output Total 2 Balance 1548 1950 PT 16.1 SEC (12.0-15.0) H 06/25/17 12:03 INR 1.29 (0.83-1.16) H 06/25/17 12:03 chart reviewed discussed with Dr Mayfield MRI brain reviewed - Physical Exam Constitutional: no apparent distress, appears nourished, other (ptosis) Cardiovascular: no murmur, rub, or gallop, irregularly irregular Respiratory: no respiratory distress, no rales or rhonchi, clear to auscultation Gastrointestinal: normoactive bowel sounds, soft, non-tender abdomen, no palpable masses ICD10 Worksheet Patient Problems: Problems Problem Status Onset Facial droop Acute Left-sided weakness Acute Myasthenia exacerbation Acute Palliative care encounter Acute
--- NOTE | 2017-06-29 12:30 | ASMTCMCOM ---
CM Note CM Note Notes: CM spoke w/pt's family, plan is still for pt to go to [facility] once he gets peg tube and is medically stable. Updated notes sent to Ruthie at [facility]. Date Signed: 06/29/2017 12:29 PM Electronically Signed By:Genesis Muhammad RN
[2017-06-29] MEDS ORDERED: NALOXONE HCL 0.4 MG/ML INJ IVP PRN (15:30)
[2017-06-29] MEDS ORDERED: LR 500 ML IV PRN (15:30)
[2017-06-29] MEDS ORDERED: ALBUTEROL 3 ML DEYVIAL IH PRN (15:30)
--- NOTE | 2017-06-29 15:30 | PDANEPAE ---
ANE Past Medical History - Cardiovascular History Hx Hypertension: Yes Hx Arrhythmias: No Hx Chest Pain: No Hx Coronary Artery / Peripheral Vascular Disease: No Hx CHF / Valvular Disease: No Cardiovascular History Comment: A-FIB - Pulmonary History Hx COPD: No Hx Asthma/Reactive Airway Disease: No Hx Recent Upper Respiratory Infection: No Hx Oxygen in Use at Home: No Hx Sleep Apnea: No Sleep Apnea Screening Result - Last Documented: Positive - Neurologic History Hx Cerebrovascular Accident: Yes Hx Seizures: Yes Hx Dementia: No Neurologic History Comment: MYASTHENIA GRAVIS. TIA - Endocrine History Hx Diabetes: No - Renal History Hx Renal Disorders: No - Liver History Hx Hepatic Disorders: No - Neurological & Psychiatric Hx Hx Neurological and Psychiatric Disorders: No - Cancer History Hx Cancer: No - Congenital Disorder History Hx Congenital Disorders: No - GI History Hx Gastrointestinal Disorders: No - Chronic Pain History Chronic Pain: No - Surgical History Prior Surgeries: TONSILLECTOMY WHEN HE WAS A KID MARK Review of Systems Review of Systems: ANE Patient History - Allergies Allergies/Adverse Reactions: No Known Allergies Allergy (Verified 06/23/17 16:02) - Home Medications Home Medications: Apixaban [Eliquis] 5 mg PO BID 08/03/15 [Last Taken 06/23/17] Atorvastatin Calcium [Lipitor 40 mg (*)] 40 mg PO HS 08/03/15 [Last Taken ] Metoprolol Succinate Xr [Toprol Xl 25 mg (*)] 25 mg PO DAILY 08/03/15 [Last Taken 06/23/17] Pyridostigmine Check [Mestinon Timespan] 180 mg PO BID 08/03/15 [Last Taken ] Triamterene/Hctz 37.5/25 [Maxzide-25 (*)] 1 tab PO DAILY 08/03/15 [Last Taken ] Epinastine HCl [Elestat] 5 ml OP BID PRN 06/22/17 [Last Taken Unknown] Aspirin EC [Aspirin EC 81 mg (*)] 81 mg PO DAILY 06/23/17 [Last Taken 06/23/17] Multivitamins [Multivitamin (*)] 1 each PO DAILY 06/23/17 [Last Taken 06/23/17] - NPO status NPO Since - Liquids (Date): 06/29/17 NPO Since - Liquids (Time): 00:00 NPO Since - Solids (Date): 06/29/17 NPO Since - Solids (Time): 00:00 - Smoking Hx Smoking Status: Former smoker - Alcohol Use Alcohol Use: Sober ANE Labs/Vital Signs - Labs Result Diagrams: 06/28/17 04:28 06/28/17 04:28 - Vital Signs Blood Pressure: 147/84 Heart Rate: 91 Respiratory Rate: 20 O2 Sat (%): 94 Height: 167.64 cm Weight: 92.986 kg ANE Physical Exam - Airway Neck exam: decreased ROM, short neck Mallampati Score: Class 3 Mouth exam: poor dentition - Pulmonary Pulmonary: reduced air movement, respiratory distress - Cardiovascular Cardiovascular: irregularly irregular - ASA Status ASA Status: IV ANE Anesthesia Plan Anesthesia Plan: MAC
--- NOTE | 2017-06-29 15:44 | POSTOPPROG ---
Post Op Note Date of Operation: 06/29/17 Surgeon: Burt Carey Anesthesia: IV Sedation Pre-op Diagnosis: dysphagia Post-op Diagnosis: same Procedure: EGD with PEG placement Inf/Abcess present in the surg proc area at time of surgery?: No EBL: Minimal
--- NOTE | 2017-06-29 15:52 | POSTANESTH ---
Post Anesthetic Evaluation Cardiovascular Status: Similar to Pre-Op Cond Respiratory Status: Similar to Pre-op Cond. Level of Consciousness/Mental Status: Mildly Sleepy, Arousable Pain Control: Adequate, Prn Tx Ordered Nausea/Vomiting Control: Adequate, Prn Tx Ordered Complications Possibly Related to Anesthesia: None Noted
--- NOTE | 2017-06-29 15:54 | GIREPORT ---
[facility] Surgical Services - Endoscopy Department Patient Name: Haile Aguilar Procedure Date: 06/29/2017 2:58 PM Patient Type: Inpatient Attending MD/ ER Physician: Burt Carey MD Procedure: Upper GI endoscopy Indications: Dysphagia Providers: Burt Carey MD Medicines: General Anesthesia Complications: No immediate complications. Description of Procedure: After obtaining informed consent, the endoscope was passed under direct vision. Throughout the procedure, the patient's blood pressure, pulse, and oxygen saturations were monitored continuously. The Endoscope was intro duced through the mouth, and advanced to the third part of duodenum. The uppe r GI endoscopy was accomplished without difficulty. The patient tolerated th e procedure well. Findings: The entire examined stomach was normal. Placement of an externally kimberly vable PEG with no T-fasteners was successfully completed. Estimated blood los s was minimal. The examined duodenum was normal. No biopsies or other specimens were collected for this exam. Estimated Blood Loss: Estimated blood loss: none. Post Op Diagnosis: - Normal stomach. - Normal examined duodenum. No specimens collected. - An externally removable PEG placement was successfully completed. Recommendation: - Return patient to [facility] for ongoing care. Attending Participation: I personally performed the entire procedure. Burt Carey MD Burt Carey MD 06/29/2017 3:54:11 PM This report has been signed electronically.Burt Carey MD Number of Addenda: 0 Note Initiated On: 06/29/2017 2:58 PM [email or web address]
[2017-06-29] MEDS: BACITRACIN OINTMENT 1 PACKET TP SCH ×2 (17:10→21:55)
--- NOTE | 2017-06-29 18:09 | PDPCPN ---
Palliative Care Progress Note Assessment/Plan: HPI: Haile Aguilar is a 81 yo with PMH myasthenia gravis, HTN, and seizure admitted to the hospital from her outpt neurologist office for increasing weakness and concern for acute MG crisis. Treated with IVIG as well as steroids. Hospitalization complicated by dysphagia with failing VFSS and being NPO. Also concern with potential for progressing resp failure 2/2 MG crisis. Palliative care consulted for complex medical decision making. met with family this morning after neurology consult. They stated they all feel they have a good plan in place and goals. Haile is going for PEG today to help with his dysphagia but would not want more aggressive care if his condition declines. They are hoping for rehab to improve Haile's strength so he can come back home. They very much value quality of life which for Haile means being outside and fishing. If there is no quality of life then haile does not want any life prolongation. MOST filled out and copy placed in chart. Assessment: Physical: - Pain: denies pain -tylenol PRN - Dyspnea: states none - oxygen if needed - dysphagia: - due to confusion gabrielhoff would likely be pulled out - family is unsure if Haile would tolerate/want a PEG tube Emotional/psychological: Has some short term memory loss. acute confusion: with agitation - consider low dose zyprexa zydis 2.5 mg QHS to help or haldol PRN Advanced Care Planning: Is patient decisional?: Yes with help Code Status: DNR- MOST form filled out today MD SINGLETON: is MDPOA. Plan: SNF/rehab at discharge. PEG tube today for nutritional support. Goal is good quality of life without much life prolonging measures. Subjective: I'm doing ok Objective: Vital Signs Temp Pulse Resp BP Pulse Ox 36.4 C 88 17 147/98 H 90 L 06/29/17 16:00 06/29/17 16:00 06/29/17 16:10 06/29/17 16:06 06/29/17 16:10 Laboratory Results 06/28/17 04:28 06/28/17 04:28 06/28/17 06/29/17 06/30/17 05:59 05:59 05:59 Intake Total 1550 1950 Output Total 2 Balance 1548 1950 PT 16.1 SEC (12.0-15.0) H 06/25/17 12:03 INR 1.29 (0.83-1.16) H 06/25/17 12:03 Physical Exam - Physical Exam General Appearance: alert, no apparent distress Respiratory: No respiratory distress, No accessory muscle use Skin: normal color, warm/dry Extremities: No pedal edema Neuro/Psych: alert, disoriented to time ICD10 Worksheet Patient Problems: Problems Problem Status Onset Myasthenia exacerbation Acute Palliative care encounter Acute Facial droop Acute Left-sided weakness Acute - ICD10 Problem Qualifiers (1) Palliative care encounter
[2017-06-30] MEDS: hydrALAZINE 20 MG/ML VIAL IVP PRN (05:02)
[2017-06-30 05:53] LABS: % IMMATURE GRANULYOCYTES 1.2 % (0.0-1.1); ABSOLUTE IMMATURE GRANULOCYTES 0.12 10^3/uL (0.00-0.10); ABSOLUTE NRBC COUNT 0.02 10^3/uL (0-0.01); ADD DIFF? NO; ADD MORPH? NO; ADD SCAN? NO; ATYPICAL LYMPHOCYTE FLAG 0 (0-99); FRAGMENT RBC FLAG 0 (0-99); HEMATOCRIT 51.1 % (40.0-51.0); HEMOGLOBIN 18.2 g/dL (13.7-17.5); LEFT SHIFT FLG 10 (0-99); LIPEMIA HEMOLYSIS FLAG 90 (0-99); MEAN CELL HEMOGLOBIN 31.6 pg (27.9-34.1); MEAN CELL HEMOGLOBIN CONCENTR. 35.6 g/dL (32.4-36.7); MEAN CELL VOLUME 88.7 fL (81.5-99.8); MEAN PLATELET VOLUME 9.9 fL (8.7-11.7); NRBC-AUTO% 0.2 % (0.0-0.2); PLATELET CLUMPS FLAG 0 (0-99); PLATELET COUNT 149 10^3/uL (150-400); RED BLOOD CELL COUNT 5.76 10^6/uL (4.40-6.38); RED CELL DISTRIBUTION WIDTH 16.4 % (11.5-15.2)
[2017-06-30 06:07] LABS: ALANINE AMINOTRANSFERASE 124 IU/L (21-72); ALBUMIN 3.2 g/dL (3.5-5.0); ALKALINE PHOSPHATASE 82 IU/L (38-126); ANION GAP 7 mEq/L (8-16); ASPARTATE AMINOTRANSFERASE 82 IU/L (17-59); BILIRUBIN,TOTAL 2.4 mg/dL (0.1-1.4); CALCIUM 8.9 mg/dL (8.5-10.4); CARBON DIOXIDE 28 mEq/l (22-31); CHLORIDE 103 mEq/L (97-110); CREATININE 0.8 mg/dL (0.7-1.3); GLOMERULAR FILTRATION RATE > 60; GLUCOSE 102 mg/dL (70-100); POTASSIUM 4.1 mEq/L (3.5-5.2); SODIUM 138 mEq/L (134-144); TOTAL PROTEIN 7.9 g/dL (6.3-8.2)
[2017-06-30 06:14] LABS: BILIRUBIN-CONJUGATED 0.4 mg/dL (0.0-0.5)
[2017-06-30] MEDS: methylPREDNISolone SOD SUCC 125 MG/2 ML VIAL IVP SCH (09:38)
[2017-06-30] MEDS: BACITRACIN OINTMENT 1 PACKET TP SCH ×3 (09:39→20:13)
[2017-06-30] MEDS: ENOXAPARIN 100 MG/ML SYR SC SCH (09:39)
--- NOTE | 2017-06-30 11:01 | HOSPPROG ---
Hospitalist Progress Note Assessment/Plan: # myasthenia crisis - s/p IVIG x 5 days; some improvement - pred 60, mestinon 180 QID # dysphagia - s/p PEG # nutrition - PEG, will try bolus feeds # a-fib - eliquis/metop, start via PEG today # htn - restart home meds (maxzide and emtop) # carotid stenosis - eliquis # hld - restart statin via PEG # goals of care - DNR, no plasmapheresis, PEG Subjective: feely poorly and weak today Objective: Vital Signs Temp Pulse Resp BP Pulse Ox 36.4 C 99 18 157/109 H 92 06/30/17 08:00 06/30/17 08:00 06/30/17 09:50 06/30/17 08:00 06/30/17 08:00 Laboratory Results 06/30/17 04:29 06/30/17 04:29 06/29/17 06/30/17 07/01/17 05:59 05:59 05:59 Intake Total 1950 1350 Balance 1950 1350 PT 16.1 SEC (12.0-15.0) H 06/25/17 12:03 INR 1.29 (0.83-1.16) H 06/25/17 12:03 high risk given degree of weakness - Physical Exam Constitutional: other (tired) Cardiovascular: regular rate and rhythym, no murmur, rub, or gallop Respiratory: no respiratory distress, no rales or rhonchi, clear to auscultation Gastrointestinal: normoactive bowel sounds, soft, non-tender abdomen, other (PEG ) ICD10 Worksheet Patient Problems: Problems Problem Status Onset Facial droop Acute Left-sided weakness Acute Myasthenia exacerbation Acute Palliative care encounter Acute
[2017-06-30] MEDS ORDERED: TRIAMTERENE/HCTZ 37.5/25 1 EACH TAB TUBE SCH (11:08)
[2017-06-30] MEDS ORDERED: ATORVASTATIN CALCIUM 40 MG TAB TUBE SCH (11:08)
[2017-06-30] MEDS ORDERED: PYRIDOSTIGMINE BROMIDE 180 MG TAB.ER PO SCH ×2 (12:00)
[2017-06-30] MEDS: PYRIDOSTIGMINE BROMIDE 60 MG TAB TUBE SCH ×3 (12:21→20:13)
[2017-06-30] MEDS ORDERED: APIXABAN 5 MG TAB PO SCH (21:00)
[2017-06-30] MEDS ORDERED: METOPROLOL TARTRATE 25 MG TAB TUBE SCH (21:00)
[2017-06-30] MEDS ORDERED: APIXABAN 5 MG TAB TUBE SCH (21:00)
[2017-07-01 04:59] LABS: % IMMATURE GRANULYOCYTES 0.9 % (0.0-1.1); ADD DIFF? NO; ADD MORPH? NO; ADD SCAN? NO; ATYPICAL LYMPHOCYTE FLAG 0 (0-99); FRAGMENT RBC FLAG 0 (0-99); HEMATOCRIT 44.8 % (40.0-51.0); HEMOGLOBIN 16.2 g/dL (13.7-17.5); LEFT SHIFT FLG 10 (0-99); LIPEMIA HEMOLYSIS FLAG 90 (0-99); MEAN CELL HEMOGLOBIN 31.3 pg (27.9-34.1); MEAN CELL HEMOGLOBIN CONCENTR. 36.2 g/dL (32.4-36.7); MEAN CELL VOLUME 86.5 fL (81.5-99.8); MEAN PLATELET VOLUME 9.8 fL (8.7-11.7); PLATELET CLUMPS FLAG 0 (0-99); PLATELET COUNT 106 10^3/uL (150-400); RED BLOOD CELL COUNT 5.18 10^6/uL (4.40-6.38); RED CELL DISTRIBUTION WIDTH 15.6 % (11.5-15.2)
[2017-07-01 05:17] LABS: CALCIUM 8.8 mg/dL (8.5-10.4); CARBON DIOXIDE 24 mEq/l (22-31); CHLORIDE 106 mEq/L (97-110); CREATININE 0.7 mg/dL (0.7-1.3); GLOMERULAR FILTRATION RATE > 60; GLUCOSE 94 mg/dL (70-100)
[2017-07-01] MEDS: PYRIDOSTIGMINE BROMIDE 60 MG TAB TUBE SCH (05:19)
--- NOTE | 2017-07-01 05:22 | SUROPNOTE ---
[facility] Operative Report - Surgery BRIEF NOTE Called by RN with report patient had pulled out his recently placed PEG tube. No peritoneal signs. no fever. With gentle pressure, I attempted to place a temporary 16fr yao catheter into the tract, but was unsuccessful. I suspect the gastric and skin punctures are no longer in opposition. Will discuss with Dr. Carey as to the best next steps. Surgical therapy, IR therapy, or repeat endoscopic attempt at placement can be considered. All are potential risk for peritonitis and perforation, given the recent nature of the gastric perforation.
[2017-07-01 05:24] LABS: POTASSIUM 3.6 mEq/L (3.5-5.2)
[2017-07-01] MEDS ORDERED: hydrALAZINE 20 MG/ML VIAL IVP PRN (08:56)
--- NOTE | 2017-07-01 08:59 | HOSPPROG ---
Hospitalist Progress Note Assessment/Plan: # pulled PEG - some concern for peritonitis given how recently it was placed; TTP on exam but not peritoneal abd - check AXR to eval - will need to discuss further with family the safety of replacing # myasthenia crisis - s/p IVIG x 5 days; some improvement - pred 60, mestinon 180 QID # dysphagia - PEG was placed, now self-dc'd # nutrition - on hold after PEG pulled # a-fib - lovenox SQ; metop IV # htn - back to metop IV and hydral # carotid stenosis - lovenox, asa on hold # hld - hold statin # hypoNa - start IVF and follow # goals of care - DNR, no plasmapheresis, PEG Subjective: PEG pulled overnight; not sure if patient really remembers; Dr Moya unable to replace Objective: Vital Signs Temp Pulse Resp BP Pulse Ox 36.4 C 93 18 120/81 H 92 07/01/17 08:00 07/01/17 08:00 07/01/17 08:00 07/01/17 08:00 07/01/17 08:00 Laboratory Results 07/01/17 04:43 07/01/17 04:43 06/30/17 07/01/17 07/02/17 05:59 05:59 05:59 Intake Total 1350 570 Balance 1350 570 PT 16.1 SEC (12.0-15.0) H 06/25/17 12:03 INR 1.29 (0.83-1.16) H 06/25/17 12:03 - Physical Exam Constitutional: no apparent distress, appears nourished Cardiovascular: regular rate and rhythym, no murmur, rub, or gallop Respiratory: no respiratory distress, no rales or rhonchi, clear to auscultation Gastrointestinal: other (decreased BS; gauze with blood over previous PEG site; TTP epigastrum; no masses) ICD10 Worksheet Patient Problems: Problems Problem Status Onset Facial droop Acute Left-sided weakness Acute Myasthenia exacerbation Acute Palliative care encounter Acute
[2017-07-01] MEDS ORDERED: predniSONE 20 MG TAB TUBE SCH (09:00)
[2017-07-01] MEDS ORDERED: predniSONE 20 MG TAB PO SCH (09:00)
[2017-07-01] MEDS: methylPREDNISolone SOD SUCC 125 MG/2 ML VIAL IVP SCH (09:41)
[2017-07-01] MEDS: ENOXAPARIN 100 MG/ML SYR SC SCH ×2 (09:41→19:41)
[2017-07-01] MEDS: BACITRACIN OINTMENT 1 PACKET TP SCH ×3 (09:45→19:41)
[2017-07-01] MEDS: METOPROLOL TARTRATE 5 MG/5 ML INJ IVP SCH ×2 (13:33→20:52)
--- NOTE | 2017-07-01 14:52 | ASMTCMCOM ---
CM Note CM Note Notes: Spoke w/RN, pt pulled out PEG tube last night. Will reinsert today and have overnight sitter to make sure it stays in, then can dc in 2 days. Ruthie at [facility] notified. Date Signed: 07/01/2017 02:51 PM Electronically Signed By:Genesis Muhammad RN
[2017-07-01 19:20] LABS: ANION GAP 9 mEq/L (8-16); SODIUM 139 mEq/L (134-144)
[2017-07-01] MEDS: D5W LR 1,000 ML IV SCH (21:18)
[2017-07-01] MEDS: HYDROmorphONE/DILAUDID 1 MG/ML INJ IVP PRN (23:52)
[2017-07-02] MEDS: HYDROmorphONE/DILAUDID 1 MG/ML INJ IVP PRN ×4 (02:33→21:22)
[2017-07-02 05:11] LABS: HEMATOCRIT 39.8 % (40.0-51.0); MEAN CELL VOLUME 88.8 fL (81.5-99.8); RED BLOOD CELL COUNT 4.48 10^6/uL (4.40-6.38)
[2017-07-02 05:12] LABS: % IMMATURE GRANULYOCYTES 0.8 % (0.0-1.1); ABSOLUTE IMMATURE GRANULOCYTES 0.11 10^3/uL (0.00-0.10); ADD DIFF? NO; ADD MORPH? NO; ADD SCAN? NO; ATYPICAL LYMPHOCYTE FLAG 0 (0-99); FRAGMENT RBC FLAG 0 (0-99); LEFT SHIFT FLG 20 (0-99); LIPEMIA HEMOLYSIS FLAG 90 (0-99); MEAN CELL HEMOGLOBIN 31.3 pg (27.9-34.1); MEAN CELL HEMOGLOBIN CONCENTR. 35.2 g/dL (32.4-36.7); MEAN PLATELET VOLUME 10.6 fL (8.7-11.7); PLATELET CLUMPS FLAG 10 (0-99); PLATELET COUNT 113 10^3/uL (150-400)
[2017-07-02 05:27] LABS: ANION GAP 7 mEq/L (8-16); CALCIUM 8.3 mg/dL (8.5-10.4); CARBON DIOXIDE 26 mEq/l (22-31); CHLORIDE 106 mEq/L (97-110); CREATININE 0.8 mg/dL (0.7-1.3); GLOMERULAR FILTRATION RATE > 60; GLUCOSE 153 mg/dL (70-100); POTASSIUM 3.9 mEq/L (3.5-5.2); SODIUM 139 mEq/L (134-144)
[2017-07-02] MEDS: D5W LR 1,000 ML IV SCH ×2 (05:27→19:50)
[2017-07-02] MEDS: METOPROLOL TARTRATE 5 MG/5 ML INJ IVP SCH ×3 (05:27→21:22)
[2017-07-02] MEDS: methylPREDNISolone SOD SUCC 125 MG/2 ML VIAL IVP SCH (08:54)
[2017-07-02] MEDS: ENOXAPARIN 100 MG/ML SYR SC SCH ×2 (08:54→19:49)
[2017-07-02] MEDS: BACITRACIN OINTMENT 1 PACKET TP SCH ×3 (08:54→19:51)
--- NOTE | 2017-07-02 15:26 | HOSPPROG ---
Hospitalist Progress Note Assessment/Plan: 81 yo M w progressive MG myasthenia crisis - s/p IVIG x 5 days; some improvement - pred 60, mestinon 180 QID dysphagia PEG tuesday nutrition - PEG, will try bolus feeds a-fib - IV metoprolol; AC on hold given need for upcoming PEG htn - restart home meds (maxzide and BB) carotid stenosis - eliquis hld - restart statin via PEG when placed goals of care - DNR, no plasmapheresis, PEG Subjective: not clear if any stronger Objective: Vital Signs Temp Pulse Resp BP Pulse Ox 36.6 C 98 16 126/66 H 92 07/02/17 15:19 07/02/17 15:19 07/02/17 15:19 07/02/17 15:19 07/02/17 15:19 Laboratory Results 07/02/17 04:33 07/02/17 04:33 07/01/17 07/02/17 07/03/17 05:59 05:59 05:59 Intake Total 570 500 Balance 570 500 PT 16.1 SEC (12.0-15.0) H 06/25/17 12:03 INR 1.29 (0.83-1.16) H 06/25/17 12:03 - Physical Exam Constitutional: no apparent distress, appears nourished Eyes: PERRL, anicteric sclera Ears, Nose, Mouth, Throat: moist mucous membranes, hearing normal Cardiovascular: regular rate and rhythym, no murmur, rub, or gallop Respiratory: no respiratory distress, no rales or rhonchi Gastrointestinal: normoactive bowel sounds, soft, non-tender abdomen, other ( attempted PEG site c/d/i) Genitourinary: no bladder fullness, No yao in urethra Skin: warm, normal color Musculoskeletal: No full muscle strength Neurologic: AAOx3 ICD10 Worksheet Patient Problems: Problems Problem Status Onset Myasthenia exacerbation Acute Palliative care encounter Acute Facial droop Acute Left-sided weakness Acute
[2017-07-03] MEDS: HYDROmorphONE/DILAUDID 1 MG/ML INJ IVP PRN ×2 (02:34→05:56)
[2017-07-03] MEDS: METOPROLOL TARTRATE 5 MG/5 ML INJ IVP SCH ×3 (05:56→21:47)
[2017-07-03] MEDS: ENOXAPARIN 100 MG/ML SYR SC SCH (09:17)
[2017-07-03] MEDS: methylPREDNISolone SOD SUCC 125 MG/2 ML VIAL IVP SCH (09:18)
[2017-07-03] MEDS: BACITRACIN OINTMENT 1 PACKET TP SCH (10:10)
--- NOTE | 2017-07-03 13:59 | HOSPPROG ---
Hospitalist Progress Note Assessment/Plan: 81 yo M w progressive MG myasthenia crisis - s/p IVIG x 5 days; some improvement - pred 60, mestinon 180 QID dysphagia PEG tuesday nutrition - await PEG a-fib - IV metoprolol; AC on hold given need for upcoming PEG htn - restart home meds (maxzide and BB) carotid stenosis - eliquis hld - restart statin via PEG when placed goals of care - DNR, no plasmapheresis, PEG Subjective: seen walking in baeza w PT and walker Objective: Vital Signs Temp Pulse Resp BP Pulse Ox 36.6 C 86 16 106/75 93 07/03/17 11:09 07/03/17 11:09 07/03/17 11:09 07/03/17 11:09 07/03/17 11:09 Laboratory Results 07/02/17 04:33 07/02/17 04:33 07/02/17 07/03/17 07/04/17 05:59 05:59 05:59 Intake Total 500 1100 Balance 500 1100 PT 16.1 SEC (12.0-15.0) H 06/25/17 12:03 INR 1.29 (0.83-1.16) H 06/25/17 12:03 - Physical Exam Constitutional: no apparent distress, appears nourished Eyes: PERRL, anicteric sclera Ears, Nose, Mouth, Throat: moist mucous membranes, hearing normal Cardiovascular: regular rate and rhythym, no murmur, rub, or gallop Respiratory: no respiratory distress, no rales or rhonchi Gastrointestinal: normoactive bowel sounds, soft, non-tender abdomen Genitourinary: no bladder fullness, No yao in urethra Skin: warm, normal color Musculoskeletal: full muscle strength ICD10 Worksheet Patient Problems: Problems Problem Status Onset Myasthenia exacerbation Acute Palliative care encounter Acute Facial droop Acute Left-sided weakness Acute
--- NOTE | 2017-07-03 16:48 | ASMTCMCOM ---
CM Note CM Note Notes: Reviewed chart, spoke w/ DONI Camara re: d/c poc, pt's progress. Per RN, pt to have PEG tube replaced 07/04/17. Pt will require 2-3 additional days in hospital following PEG replacement to ensure tube is properly working and healing. Pt to discharge to [facility] when medically stable. CM to update Carolyn at on Tue; will cont to follow. Date Signed: 07/03/2017 04:47 PM Electronically Signed By:Evie Braun RN
[2017-07-04 05:03] LABS: ANION GAP 5 mEq/L (8-16); CALCIUM 8.1 mg/dL (8.5-10.4); CARBON DIOXIDE 29 mEq/l (22-31); CHLORIDE 112 mEq/L (97-110); CREATININE 0.7 mg/dL (0.7-1.3); GLOMERULAR FILTRATION RATE > 60; GLUCOSE 112 mg/dL (70-100); POTASSIUM 3.9 mEq/L (3.5-5.2); SODIUM 146 mEq/L (134-144)
[2017-07-04 05:04] LABS: INR 1.4 (0.83-1.16); PROTIME(PATIENT) 17.1 SEC (12.0-15.0)
[2017-07-04] MEDS: D5W NS 1,000 ML IV SCH ×2 (05:30→14:52)
[2017-07-04] MEDS: METOPROLOL TARTRATE 5 MG/5 ML INJ IVP SCH ×2 (06:20→14:44)
[2017-07-04] MEDS: methylPREDNISolone SOD SUCC 125 MG/2 ML VIAL IVP SCH (08:43)
--- NOTE | 2017-07-04 10:54 | ASMTCMCOM ---
CM Note CM Note Notes: ELISE spoke w/ Olga, RN regarding d/c POC. Pt is having surgery today to have PEG replaced. CM notified Carolyn at [facility]. CM available for changes. Date Signed: 07/04/2017 10:54 AM Electronically Signed By:PRAVIN Sevilla
[2017-07-04] MEDS ORDERED: ceFAZolin 2 GM/SWFI 2 GM/20 ML SYR IVP ONE (12:30)
--- NOTE | 2017-07-04 16:05 | HOSPPROG ---
Hospitalist Progress Note Assessment/Plan: 81 yo M w progressive MG myasthenia crisis - s/p IVIG x 5 days; some improvement - pred 60, mestinon 180 QID dysphagia PEG tuesday I have recommended nursing keep peg completely bandaged overnight nutrition - await PEG a-fib - IV metoprolol; AC on hold given need for upcoming PEG htn - restart home meds (maxzide and BB) carotid stenosis - eliquis hld - restart statin via PEG when placed goals of care - DNR, no plasmapheresis, PEG Subjective: awaiting PEG Objective: Vital Signs Temp Pulse Resp BP Pulse Ox 36.7 C 100 21 H 139/73 H 91 L 07/04/17 11:44 07/04/17 14:44 07/04/17 15:02 07/04/17 14:44 07/04/17 11:44 Laboratory Results 07/02/17 04:33 07/04/17 04:15 07/03/17 07/04/17 07/05/17 05:59 05:59 05:59 Intake Total 1100 766 Balance 1100 766 PT 17.1 SEC (12.0-15.0) H 07/04/17 04:15 INR 1.40 (0.83-1.16) H 07/04/17 04:15 - Physical Exam Constitutional: no apparent distress, appears nourished Eyes: PERRL, anicteric sclera, EOMI Ears, Nose, Mouth, Throat: moist mucous membranes, hearing normal Cardiovascular: regular rate and rhythym, no murmur, rub, or gallop Respiratory: no respiratory distress, no rales or rhonchi Gastrointestinal: normoactive bowel sounds, soft, non-tender abdomen Genitourinary: No yao in urethra Skin: warm, normal color Musculoskeletal: full muscle strength Neurologic: AAOx3 ICD10 Worksheet Patient Problems: Problems Problem Status Onset Myasthenia exacerbation Acute Palliative care encounter Acute Facial droop Acute Left-sided weakness Acute
--- NOTE | 2017-07-04 16:32 | PDANEPAE ---
ANE History of Present Illness here for peg tube. Myasthenia gravis. AF, s/p CEA ANE Past Medical History - Cardiovascular History Hx Hypertension: Yes Hx Arrhythmias: No Hx Chest Pain: No Hx Coronary Artery / Peripheral Vascular Disease: No Hx CHF / Valvular Disease: No Cardiovascular History Comment: A-FIB - Pulmonary History Hx COPD: No Hx Asthma/Reactive Airway Disease: No Hx Recent Upper Respiratory Infection: No Hx Oxygen in Use at Home: No Hx Sleep Apnea: No Sleep Apnea Screening Result - Last Documented: Positive - Neurologic History Hx Cerebrovascular Accident: Yes Hx Seizures: Yes Hx Dementia: No Neurologic History Comment: MYASTHENIA GRAVIS. TIA - Endocrine History Hx Diabetes: No - Renal History Hx Renal Disorders: No - Liver History Hx Hepatic Disorders: No - Neurological & Psychiatric Hx Hx Neurological and Psychiatric Disorders: No - Cancer History Hx Cancer: No - Congenital Disorder History Hx Congenital Disorders: No - GI History Hx Gastrointestinal Disorders: No - Chronic Pain History Chronic Pain: No - Surgical History Prior Surgeries: TONSILLECTOMY WHEN HE WAS A KID ANE Review of Systems Review of systems is: negative Review of Systems: - Exercise capacity Exercise capacity: <4 METS ANE Patient History - Allergies Allergies/Adverse Reactions: No Known Allergies Allergy (Verified 06/23/17 16:02) - Home Medications Home medications: home medication list seen and reviewed Home Medications: Apixaban [Eliquis] 5 mg PO BID 08/03/15 [Last Taken 06/23/17] Atorvastatin Calcium [Lipitor 40 mg (*)] 40 mg PO HS 08/03/15 [Last Taken ] Metoprolol Succinate Xr [Toprol Xl 25 mg (*)] 25 mg PO DAILY 08/03/15 [Last Taken 06/23/17] Pyridostigmine [place] [Mestinon Timespan] 180 mg PO BID 08/03/15 [Last Taken ] Triamterene/Hctz 37.5/25 [Maxzide-25 (*)] 1 tab PO DAILY 08/03/15 [Last Taken ] Epinastine HCl [Elestat] 5 ml OP BID PRN 06/22/17 [Last Taken Unknown] Aspirin EC [Aspirin EC 81 mg (*)] 81 mg PO DAILY 06/23/17 [Last Taken 06/23/17] Multivitamins [Multivitamin (*)] 1 each PO DAILY 06/23/17 [Last Taken 06/23/17] - NPO status NPO Since - Liquids (Date): 07/04/17 NPO Since - Liquids (Time): 00:00 NPO Since - Solids (Date): 07/04/17 NPO Since - Solids (Time): 00:00 - Smoking Hx Smoking Status: Former smoker - Alcohol Use Alcohol Use: Sober ANE Labs/Vital Signs - Labs Result Diagrams: 07/02/17 04:33 07/04/17 04:15 - Vital Signs Blood Pressure: 144/83 Heart Rate: 103 Respiratory Rate: 18 O2 Sat (%): 91 Height: 167.64 cm Weight: 84.9 kg ANE Physical Exam - Airway Neck exam: FROM - Pulmonary Pulmonary: no respiratory distress - Cardiovascular Cardiovascular: irregularly irregular - ASA Status ASA Status: III ANE Anesthesia Plan Anesthesia Plan: MAC
[2017-07-04] MEDS ORDERED: PROPOFOL 200 MG/20 ML VIAL ONE ×3 (16:42→21:05)
--- NOTE | 2017-07-04 17:31 | GIREPORT ---
[facility] - Endoscopy Department Patient Name: Haile Aguilar Procedure Date: 07/04/2017 4:16 PM Patient Type: Inpatient Attending MD/ ER Physician: Burt Carey MD Procedure: Upper GI endoscopy Indications: Attempted replacement of PEG tube which was pulled out by patient 06/30 (initially placed 06/29/17.) Providers: Burt Carey MD Medicines: General Anesthesia Complications: No immediate complications. Description of Procedure: After obtaining informed consent, the endoscope was passed under direct vision. Throughout the procedure, the patient's blood pressure, pulse, and oxygen saturations were monitored continuously. The Endoscope was intro duced through the mouth, and advanced to the second part of duodenum. The [facility] er GI endoscopy was accomplished without difficulty. The patient tolerated th e procedure well. Findings: Large defect in anterior wall of stomach near lesser curvature where PE G tube was pulled out; a cavity is seen beyond the defect. A site for replacement was initially identified to the right of the leti ginal tract but I could not pass the trochar into the lumen of the stomach. N o other suitable site could be transilluminated. Estimated Blood Loss: Estimated blood loss: none. Post Op Diagnosis: - No specimens collected. Recommendation: - [facility] care. Dr Iverson from IR was brought in to observe the anatomy for reference for possible IR placeme nt of feeding tube. CT of abdomen was ordered at his request for pre-procedur e evaluation. Attending Participation: I personally performed the entire procedure. Burt Carey MD Burt Carey MD 07/04/2017 5:30:47 PM This report has been signed electronicallyRobert MD Aurelio Number of Addenda: 0 Note Initiated On: 07/04/2017 4:16 PM [email or web address]
--- NOTE | 2017-07-04 17:32 | SOAPPROG ---
SOAP Progress Note Assessment/Plan: Assessment:See my procedure note. Pt will need IR placement of PEG tube. Discussed with Dr. Iverson. Plan: 07/04/17 17:31 Objective: Vital Signs Temp Pulse Resp BP Pulse Ox 36.5 C 103 H 18 144/83 H 91 L 07/04/17 16:25 07/04/17 16:39 07/04/17 16:39 07/04/17 16:39 07/04/17 16:39 Laboratory Results 07/02/17 04:33 07/04/17 04:15 07/03/17 07/04/17 07/05/17 05:59 05:59 05:59 Intake Total 1100 766 Balance 1100 766 PT 17.1 SEC (12.0-15.0) H 07/04/17 04:15 INR 1.40 (0.83-1.16) H 07/04/17 04:15 ICD10 Worksheet Patient Problems: Problems Problem Status Onset Myasthenia exacerbation Acute Palliative care encounter Acute Facial droop Acute Left-sided weakness Acute
[2017-07-04] MEDS ORDERED: IOPAMIDOL (ISOVUE-300) 100 ML BTL ONE (18:02)
--- NOTE | 2017-07-04 20:42 | HOSPPROG ---
Hospitalist Progress Note Assessment/Plan: XC Note 20:[address] results: "massive amount of pneumoperitoneum" I immediately went to the bedside where I found the patient resting comfortably. He admits to a little bit of abdominal pain. No N/V/D. No fevers /chills. He is NPO due to dysphagia in setting of myasthenia gravis. Further history reveals he recently had a PEG tube placed and then pulled it out. He had an EGD today by Dr. Carey, with whom I discussed the case. He insufflated the stomach and a large defect / cavity was noted in the region of the prior peg tube. He attempted to place another peg tube, but was unsuccessful. IR was consulted by GI and a CT was performed, which revealed a massive amount of pneumoperitoneum. VSS, Afebrile, normotensive, no tachycardia Gen: A&O x3, NAD Heent: op clear, mmm CV RRR Pulm CTAB Abd soft, moderately distended without rigidity or guarding. +Tympanitic. No peritoneal signs. 2 small incisions are c/d/i without drainage or erythema Ext well perfused 81 yo male admitted with myasthenia gravis crisis s/p 5d IVIG and dysphagia requiring peg tube placement, now with pneumoperitoneum secondary to a hole in his stomach. Fortunately, he currently appears non-toxic. Discussed with patient he will likely need surgery due to risk of impending peritonitis. -draw stat CBC, CMP, lactate, PCT -draw blood cultures and start empiric zosyn -discussed case with GI as above -surgery consulted and Dr. Majano will see pt for consideration of urgent laparotomy A total of 40 minutes were spent at the bedside providing face to face critical care, reviewing chart and discussing case with sub-specialty care. Objective: Vital Signs Temp Pulse Resp BP Pulse Ox 36.6 C 98 18 155/88 H 93 07/04/17 19:34 07/04/17 19:34 07/04/17 19:34 07/04/17 19:34 07/04/17 19:34 Laboratory Results 07/02/17 04:33 07/04/17 04:15 07/03/17 07/04/17 07/05/17 05:59 05:59 05:59 Intake Total 3814 379 8556 Output Total 400 Balance 1100 766 936 PT 17.1 SEC (12.0-15.0) H 07/04/17 04:15 INR 1.40 (0.83-1.16) H 07/04/17 04:15 ICD10 Worksheet Patient Problems: Problems Problem Status Onset Myasthenia exacerbation Acute Palliative care encounter Acute Facial droop Acute Left-sided weakness Acute
[2017-07-04] MEDS ORDERED: BUPIVACAINE 0.25% 30 ML SDV ONE (20:57)
[2017-07-04 21:05] LABS: % IMMATURE GRANULYOCYTES 0.9 % (0.0-1.1); ABSOLUTE IMMATURE GRANULOCYTES 0.09 10^3/uL (0.00-0.10); ADD DIFF? NO; ADD MORPH? NO; ADD SCAN? NO; ATYPICAL LYMPHOCYTE FLAG 0 (0-99); FRAGMENT RBC FLAG 0 (0-99); HEMATOCRIT 33.9 % (40.0-51.0); HEMOGLOBIN 12.1 g/dL (13.7-17.5); LEFT SHIFT FLG 10 (0-99); LIPEMIA HEMOLYSIS FLAG 90 (0-99); MEAN CELL HEMOGLOBIN 32.7 pg (27.9-34.1); MEAN CELL HEMOGLOBIN CONCENTR. 35.7 g/dL (32.4-36.7); MEAN CELL VOLUME 91.6 fL (81.5-99.8); PLATELET CLUMPS FLAG 0 (0-99); PLATELET COUNT 110 10^3/uL (150-400); RED CELL DISTRIBUTION WIDTH 16.6 % (11.5-15.2)
[2017-07-04] MEDS ORDERED: ROCURONIUM 50 MG/5 ML VIAL ONE (21:05)
[2017-07-04] MEDS ORDERED: fentaNYL 100 MCG/2 ML INJ ONE ×2 (21:05)
[2017-07-04] MEDS ORDERED: SUCCINYLCHOLINE CHLORIDE*ANESTHESIA ONLY*200 MG/10 ML SYR IVP ONE (21:05)
--- NOTE | 2017-07-04 21:05 | PDHPUP ---
History & Physical Update H&P update statement: This history and physical update is based on an assessment of the patient which was completed after admission or registration (within 24 hours), but prior to the surgery/procedure. H&P update: H&P reviewed & patient examined, no change in patient's condition since H&P completed
--- NOTE | 2017-07-04 21:07 | SOAPPROG ---
SOAP Progress Note Assessment/Plan: Assessment/Plan: - 81yo M c gastric perforation s/p self-remove G tube - patient with significant free air and fluid in abdomen - Abdomen is tender but not peritoneal at this time - Needs exploration and repair. Discussed with who consented for the patient - To or for repair MINA 07/04/17 21:06 Subjective: some abd pain Objective: Vital Signs Temp Pulse Resp BP Pulse Ox 36.6 C 102 H 18 155/88 H 94 07/04/17 20:57 07/04/17 20:57 07/04/17 20:57 07/04/17 20:57 07/04/17 20:57 Laboratory Results 07/04/17 20:50 07/03/17 07/04/17 07/05/17 05:59 05:59 05:59 Intake Total 4585 146 5951 Output Total 400 Balance 1100 766 936 PT 17.1 SEC (12.0-15.0) H 07/04/17 04:15 INR 1.40 (0.83-1.16) H 07/04/17 04:15 ICD10 Worksheet Patient Problems: Problems Problem Status Onset Myasthenia exacerbation Acute Palliative care encounter Acute Facial droop Acute Left-sided weakness Acute
--- NOTE | 2017-07-04 21:21 | PDANEPAE ---
ANE History of Present Illness peg tube abdominal tear ANE Past Medical History - Cardiovascular History Hx Hypertension: Yes Hx Arrhythmias: No Hx Chest Pain: No Hx Coronary Artery / Peripheral Vascular Disease: No Hx CHF / Valvular Disease: No Cardiovascular History Comment: A-FIB - Pulmonary History Hx COPD: No Hx Asthma/Reactive Airway Disease: No Hx Recent Upper Respiratory Infection: No Hx Oxygen in Use at Home: No Hx Sleep Apnea: No Sleep Apnea Screening Result - Last Documented: Positive - Neurologic History Hx Cerebrovascular Accident: Yes Hx Seizures: Yes Hx Dementia: No Neurologic History Comment: MYASTHENIA GRAVIS. TIA - Endocrine History Hx Diabetes: No - Renal History Hx Renal Disorders: No - Liver History Hx Hepatic Disorders: No - Neurological & Psychiatric Hx Hx Neurological and Psychiatric Disorders: No - Cancer History Hx Cancer: No - Congenital Disorder History Hx Congenital Disorders: No - GI History Hx Gastrointestinal Disorders: No - Chronic Pain History Chronic Pain: No - Surgical History Prior Surgeries: TONSILLECTOMY WHEN HE WAS A KID ANE Review of Systems Review of Systems: - Exercise capacity METS (RN): 2 METS ANE Patient History - Allergies Allergies/Adverse Reactions: No Known Allergies Allergy (Verified 06/23/17 16:02) - Home Medications Home Medications: Apixaban [Eliquis] 5 mg PO BID 08/03/15 [Last Taken 06/23/17] Atorvastatin Calcium [Lipitor 40 mg (*)] 40 mg PO HS 08/03/15 [Last Taken ] Metoprolol Succinate Xr [Toprol Xl 25 mg (*)] 25 mg PO DAILY 08/03/15 [Last Taken 06/23/17] Pyridostigmine [place] [Mestinon Timespan] 180 mg PO BID 08/03/15 [Last Taken ] Triamterene/Hctz 37.5/25 [Maxzide-25 (*)] 1 tab PO DAILY 08/03/15 [Last Taken ] Epinastine HCl [Elestat] 5 ml OP BID PRN 06/22/17 [Last Taken Unknown] Aspirin EC [Aspirin EC 81 mg (*)] 81 mg PO DAILY 06/23/17 [Last Taken 06/23/17] Multivitamins [Multivitamin (*)] 1 each PO DAILY 06/23/17 [Last Taken 06/23/17] - NPO status NPO Since - Liquids (Date): 07/04/17 NPO Since - Liquids (Time): 00:00 NPO Since - Solids (Date): 07/04/17 NPO Since - Solids (Time): 00:00 - Smoking Hx Smoking Status: Former smoker - Alcohol Use Alcohol Use: Sober ANE Labs/Vital Signs - Labs Result Diagrams: 07/04/17 20:50 07/04/17 04:15 - Vital Signs Blood Pressure: 155/88 Heart Rate: 102 Respiratory Rate: 18 O2 Sat (%): 94 Height: 167.64 cm Weight: 84.9 kg ANE Physical Exam - Airway Neck exam: decreased ROM Mallampati Score: Class 3 Mouth exam: normal dental/mouth exam - Pulmonary Pulmonary: no respiratory distress - Cardiovascular Cardiovascular: regular rate and rhythym - ASA Status ASA Status: IV ANE Anesthesia Plan Anesthesia Plan: general endotracheal anesthesia
[2017-07-04 21:38] LABS: ALANINE AMINOTRANSFERASE 45 IU/L (21-72); ALBUMIN 2.4 g/dL (3.5-5.0); ALKALINE PHOSPHATASE 49 IU/L (38-126); ANION GAP 6 mEq/L (8-16); ASPARTATE AMINOTRANSFERASE 24 IU/L (17-59); BILIRUBIN,TOTAL 1.4 mg/dL (0.1-1.4); CALCIUM 8.2 mg/dL (8.5-10.4); CARBON DIOXIDE 27 mEq/l (22-31); CHLORIDE 110 mEq/L (97-110); CREATININE 0.7 mg/dL (0.7-1.3); GLOMERULAR FILTRATION RATE > 60; GLUCOSE 138 mg/dL (70-100); SODIUM 143 mEq/L (134-144); TOTAL PROTEIN 5.5 g/dL (6.3-8.2)
[2017-07-04 22:27] LABS: PROCALCITONIN 0.41 ng/mL (0.02-0.10)
[2017-07-04] MEDS ORDERED: PROMETHAZINE HCL 25 MG/ML INJ IVP PRN (22:53)
[2017-07-04] MEDS ORDERED: ONDANSETRON 4 MG/2 ML VIAL IVP PRN (22:53)
[2017-07-04] MEDS ORDERED: fentaNYL 100 MCG/2 ML INJ IVP PRN (22:53)
[2017-07-04] MEDS ORDERED: HYDROmorphONE/DILAUDID 1 MG/ML INJ IVP PRN (22:53)
[2017-07-04] MEDS ORDERED: NALOXONE HCL 0.4 MG/ML INJ IVP PRN (22:53)
--- NOTE | 2017-07-04 23:22 | POSTOPPROG ---
Post Op Note Date of Operation: 07/04/17 Surgeon: Tuan Majano Anesthesiologist: Eitan Anesthesia: GET(General Endotracheal) Pre-op Diagnosis: Gastric perforation Post-op Diagnosis: gastric perforation with hemoperitoneum Procedure: ex-lap, repair gastric wall, washout, 22Fr G tube placement Findings: posterior gastric wall perforation >1L old blood in abdomen Inf/Abcess present in the surg proc area at time of surgery?: No EBL: Greater than 1000 Total fluids administered: 3000cc washout Drains: Other (22Fr G tube)
--- NOTE | 2017-07-04 23:29 | POSTANESTH ---
Post Anesthetic Evaluation Cardiovascular Status: Normal, Stable Respiratory Status: Normal, Stable Level of Consciousness/Mental Status: Can Participate in Eval Pain Control: Adequate, Prn Tx Ordered Nausea/Vomiting Control: Adequate, Prn Tx Ordered Complications Possibly Related to Anesthesia: None Noted
[2017-07-05] MEDS: HYDROmorphONE/DILAUDID 1 MG/ML INJ IVP PRN ×2 (00:47→13:27)
[2017-07-05] MEDS: METOPROLOL TARTRATE 5 MG/5 ML INJ IVP SCH ×4 (00:47→21:01)
[2017-07-05] MEDS: PIPERACILLIN/TAZO 4.5 GM/DEX 100 ML IV SCH ×5 (00:48→20:27)
[2017-07-05 04:41] LABS: % IMMATURE GRANULYOCYTES 0.7 % (0.0-1.1); ABSOLUTE IMMATURE GRANULOCYTES 0.12 10^3/uL (0.00-0.10); ADD DIFF? NO; ADD MORPH? NO; ADD SCAN? NO; ATYPICAL LYMPHOCYTE FLAG 0 (0-99); FRAGMENT RBC FLAG 0 (0-99); HEMATOCRIT 38.4 % (40.0-51.0); HEMOGLOBIN 13.3 g/dL (13.7-17.5); LEFT SHIFT FLG 10 (0-99); LIPEMIA HEMOLYSIS FLAG 90 (0-99); MEAN CELL HEMOGLOBIN 31.9 pg (27.9-34.1); MEAN CELL HEMOGLOBIN CONCENTR. 34.6 g/dL (32.4-36.7); MEAN CELL VOLUME 92.1 fL (81.5-99.8); MEAN PLATELET VOLUME 10.8 fL (8.7-11.7); PLATELET CLUMPS FLAG 0 (0-99); PLATELET COUNT 96 10^3/uL (150-400); RED BLOOD CELL COUNT 4.17 10^6/uL (4.40-6.38); RED CELL DISTRIBUTION WIDTH 16.9 % (11.5-15.2)
[2017-07-05] MEDS: methylPREDNISolone SOD SUCC 125 MG/2 ML VIAL IVP SCH (07:56)
--- NOTE | 2017-07-05 10:01 | HOSPPROG ---
Hospitalist Progress Note Assessment/Plan: 81 yo M w progressive MG peritonitis: 2/2 inadvertant PEG removal plus air from insuflation during repeat PEG eval his exam had been quite benign up to that point now w repair andon abx 1. continue zosyn 2. hold on starting tube feeds given ileus myasthenia crisis - s/p IVIG x 5 days; some improvement - pred 60, mestinon 180 QID it would be nice to taper steroids will d/w neurology dysphagia: now w G tube await ileus nutrition - may need TPN a-fib - IV metoprolol; AC on hold given need for upcoming PEG htn - restart home meds (maxzide and BB) carotid stenosis - eliquis hld - restart statin via PEG when placed goals of care - DNR, no plasmapheresis, PEG Subjective: eventful evening. atemmpted PEG aborted, subsequent CT w massive pneumoperitoneum (images reviewed/innterp by me), had ex lap w removal of blood , irrigation and j tube placement. case d/w dr mishra Objective: Vital Signs Temp Pulse Resp BP Pulse Ox 36.5 C 90 20 142/91 H 97 07/05/17 07:09 07/05/17 07:09 07/05/17 07:09 07/05/17 07:09 07/05/17 08:00 Laboratory Results 07/05/17 04:32 07/04/17 20:50 07/04/17 07/05/17 07/06/17 05:59 05:59 05:59 Intake Total 766 1336 Output Total 700 Balance 766 636 PT 17.1 SEC (12.0-15.0) H 07/04/17 04:15 INR 1.40 (0.83-1.16) H 07/04/17 04:15 - Physical Exam Constitutional: no apparent distress, appears nourished Eyes: PERRL, anicteric sclera Ears, Nose, Mouth, Throat: moist mucous membranes, hearing normal Cardiovascular: regular rate and rhythym, no murmur, rub, or gallop, No tachycardia Respiratory: no respiratory distress, no rales or rhonchi Gastrointestinal: other (large midline incision c/d/i/. essentially absent bowel sounds. no rebound or guardimg), No normoactive bowel sounds Genitourinary: no bladder fullness, No yao in urethra Skin: warm, normal color Musculoskeletal: full muscle strength, no muscle tenderness Neurologic: AAOx3 ICD10 Worksheet Patient Problems: Problems Problem Status Onset Myasthenia exacerbation Acute Palliative care encounter Acute Facial droop Acute Left-sided weakness Acute
[2017-07-05] MEDS ORDERED: ALTEPLASE 2 MG VIAL IVP PRN (10:14)
[2017-07-05] MEDS: D5W NS 1,000 ML IV SCH ×2 (11:57→22:42)
--- NOTE | 2017-07-05 12:15 | GCON ---
[f rep st] CONSULTATION DATE OF CONSULTATION: 07/04/2017 CHIEF COMPLAINT: Pneumoperitoneum. HISTORY OF PRESENT ILLNESS: This is an 81-year-old male, who [facility] Briefly, he is an 81-year-old male with multiple medical problems, admitted fo r a myasthenia gravis crisis, admitted for progression of symptoms with increased weakness. At any r ate, the patient was subsequently taken to the GI suite on the . Per review of the chart, that a pparently went uneventfully. The patient was doing well, but on the evening of the , the patient actually self discontinued his own PEG tube. He was then taken back to the GI suite on the whe re the oil dispatcher noted large defect in the anterior wall of stomach near the lesser curvatur e where PEG tube was pulled out. A cavity is seen beyond the defect. At any rate, the patient was t aken back to the floor. He is actually doing fairly well, but a CT scan was performed which showed g ross fluid throughout the abdomen and massive pneumoperitoneum at which point in time I was consulted . I went and saw the patient, who was not an extremis. He was actually fairly stable, but he did wen ve some concerning signs on his abdomen. He was distended and he was tender with some rebound to johnathan p palpation. He does have some underlying dementia and did not have great insight into what was petra g on, but did endorse some abdominal pain. He denied having fevers. PAST MEDICAL HISTORY: Atrial fibrillation, TIA, myasthenia gravis, hypertension, hyperlipidemia. PAST SURGICAL HISTORY: Right carotid endarterectomy in 2016. SOCIAL HISTORY: Lives with his in [place]. Previous smoker. Denies illicit drug use. REVIEW OF SYSTEMS: A full 10-point review was performed and unless stated above, is otherwise negati ve. ALLERGIES: None. FAMILY HISTORY: Noncontributory. HOME MEDICATIONS: Reviewed. Does take Eliquis. PHYSICAL EXAM: VITAL SIGNS: Temperature 36.1, blood pressure 141/76, heart rate 91, he is 92% on ro om air. CONSTITUTIONAL: He is in no apparent distress. He is somewhat uncomfortable and a little b it confused. EYES: His pupils are equal, round, and reactive to light and accommodation. He has an icteric sclerae. His extraocular movements are intact. EARS, NOSE, MOUTH AND THROAT: He has moist mucous membranes. His hearing is normal. CARDIOVASCULAR: He has a regular rate and rhythm. RESPIR ATORY: He has no respiratory distress and no rales or rhonchi. GI: His abdomen is soft, distended, tender to palpation with rebound to deep palpation. SKIN: Warm and of normal color without rash. M USCULOSKELETAL: He has weak muscle strength, but no muscle tenderness with normal joint range of mot ion. NEUROLOGIC: He is alert and oriented x3. His cranial nerves 2-12 are intact. He does not hav e any weakness or numbness. PSYCH: He is interacting appropriately. He has limited insight into wh at is going on. He is not anxious. LYMPH/HEME/IMMUNOLOGIC: He has no cervical groin or supraclavicu lar lymphadenopathy. LABORATORY DATA: White count 9.8, hemoglobin 12, hematocrit 33. Coags: INR of 1.4. IMAGING: Includes a CT scan, which shows gross pneumoperitoneum with fluid throughout the abdominal cavity. These images were personally reviewed. ASSESSMENT AND PLAN: 81-year-old male, status post self removal of PEG tube with likely gastric perf oration and pneumoperitoneum and gross ascites. Given the patient's imaging and likely persistent ho le in his stomach, given the esophagogastroduodenoscopy report, I feel that the patient warrants urge nt transport to the operating room for repair of this and washout of the abdomen. I discussed the ri sks, benefits, and alternatives with the patient and his . Consent was signed. We will plan to proceed emergently to the operating room. /[id number]/MODL
--- NOTE | 2017-07-05 12:40 | SOAPPROG ---
SOAP Progress Note Assessment/Plan: Assessment/Plan: - 81yo M c gastric perforation s/p self-remove G tube s/p repair, new G tube - looks good, abd soft. Cont G tube to gravity. Anticipate ileus - Maybe trickle tomorrow 07/04/17 21:06 07/05/17 12:39 Subjective: Denies pain Objective: Vital Signs Temp Pulse Resp BP Pulse Ox 36.5 C 90 20 142/91 H 97 07/05/17 07:09 07/05/17 07:09 07/05/17 07:09 07/05/17 07:09 07/05/17 08:00 Laboratory Results 07/05/17 04:32 07/04/17 20:50 07/04/17 07/05/17 07/06/17 05:59 05:59 05:59 Intake Total 766 1336 Output Total 700 200 Balance 766 636 -200 PT 17.1 SEC (12.0-15.0) H 07/04/17 04:15 INR 1.40 (0.83-1.16) H 07/04/17 04:15 ICD10 Worksheet Patient Problems: Problems Problem Status Onset Myasthenia exacerbation Acute Palliative care encounter Acute Facial droop Acute Left-sided weakness Acute
--- NOTE | 2017-07-05 12:46 | GOP ---
[f rep st] OPERATIVE REPORT DATE OF OPERATION: 07/04/2017 SURGEON: Tuan Majano MD CHIMNEY SWEEPER: None. ANESTHESIA: General endotracheal provided by Dr. Stevan Laird. PREOPERATIVE DIAGNOSIS: Gastric perforation with pneumoperitoneum. POSTOPERATIVE DIAGNOSIS: Posterior gastric wall perforation with gross pneumoperitoneum and gross hemoperitoneum secondary to gastrocolic omental bleed. PROCEDURE PERFORMED: Exploratory laparotomy, mobilization of stomach, repair of posterior gastric wall perforation, abdominal wash out and placement of 22- [place] gastrostomy tube. FINDINGS: Upon entering the patient's abdomen, he had a gross amount of what appeared to be old blood; over a liter was subsequently removed from his abdomen. No anterior gastric wall perforation was found. I entered the lesser sac and identified a posterior gastric wall perforation, the ostensible site where the PEG tube was placed. I also identified a defect in the gastrocolic omentum with a large adherent clot to a vessel, likely the site of the GI bleed. Gastric perforation repaired; new 22-[place] G-tube placed appropriately. SPECIMENS: None. ESTIMATED BLOOD LOSS: Over a liter of old blood was removed upon entering the abdomen. Procedural blood loss was 20 cc. DESCRIPTION OF PROCEDURE: The patient was greeted in his room. Risks, benefits , and alternatives were discussed. I also discussed these with his . The consent was signed. He was then transported to the operative suite, placed on the OR table in a supine position. After all anesthesia machines, including SCDs, were on and functioning, [employer] time-out was performed ending with all in agreement. After successful induction of general anesthesia , the patient's abdomen was widely prepped and draped in typical sterile fashion. I entered the abdomen via a generous midline incision and carried it down through subcutaneous tissue and successfully entered the patient's abdomen where a whoosh of air was noted. Once in the abdomen, I identified a significant amount of what appeared to be old blood, over a liter of which was subsequently evacuated from the patient's belly. I identified no bleeding source but I did identify a large adherent clot to the gastrocolic omentum where there did appear to be a perforation site. After I evacuated the hemoperitoneum, I turned my attention toward the anterior gastric wall where I found no perforation. I then mobilized the gastrocolic omentum off the greater curve. I then inverted the stomach and identified a perforation in the posterior gastric wall near the greater curvature. I identified no other perforations. This was subsequently repaired in layers, first with interrupted 3-0 Vicryl, then Lembert and 3-0 Vicryl sutures over that, noting excellent seromuscular reapproximation. After this was done, I then ensured that there were no ongoing bleeding sites. After assurance, I turned my attention towards the anterior gastric wall. A pursestring suture of 2-0 silk was done. A gastrotomy was performed through which a 22-Bel[place]ian G-tube, which was already tracked through the abdominal wall, was placed into the stomach. The pursestring suture was tied down. The balloon was filled. The stomach was intact to the anterior abdominal wall with multiple interrupted silk sutures. After this was done, I then irrigated the abdomen again with 3 more liters of normal saline, noting clear effluent in the suction canister. I noted no more gross hemoperitoneum or gastric spillage. Prior to closing, gloves and gown were changed. I closed the fascia with a #1 PDS suture. Skin was closed with chris. The G-tube was then successfully reattached to the skin with a silk suture. The patient was then extubated in the operative suite and taken to the PACU in satisfactory condition. DRAINS: 22-[place]ian G-tube. COUNTS: All counts were reported as correct x2. /[id number]/MODL MTDD
--- NOTE | 2017-07-05 22:19 | GCON ---
[f rep st] CONSULTATION FOLLOWUP NEUROLOGIC CONSULTATION He is a patient who has been followed by Dr. Gomez, as well as Dr. Pastor. I have reviewed all the r ecords from his hospitalization and the neurologic consultation and progress notes regarding manageme nt of his myasthenia gravis. I was called today by Dr. Ngo to follow up on the issue of whether w e could decrease prednisone to help enhance wound healing from his recent surgery. The patient had a severe exacerbation of myasthenia gravis prompting IVIG, which temporarily improved dysphagia and so me of his weakness, but he has been in a very debilitated state over the last 3 weeks and had progres douglas of symptoms despite being on high-dose prednisone. He has regained a little bit of function in terms of the ability to walk, but still has profound weakness and has not been able to take in much o ral intake and is currently n.p.o. as he has been since admission because of the dysphagia. His Mest inon is currently being held because the PEG tube cannot be used yet. At the moment, he is receiving his steroid in the form of 60 mg IV daily, because again PEG tube is not something that can be used. His description is that his voice remains a little bit weak. He still cannot safely swallow. He d oes not have double vision. There has been a mild degree of ptosis, but that is better. His arms wen ve become weaker, according to his , since he came into the hospital and he has been very limited in his activity but the legs have improved a little bit. PHYSICAL EXAMINATION: VITAL SIGNS: Currently his blood pressure is 159/72, pulse of 93, respiration s 16. GENERAL: He is lying in the bed, in no acute distress. EYES: Clear. NECK: Supple with no bruits or masses. NEUROLOGIC: He is alert and attentive, and speech is a little soft and mildly dys arthric but I can understand him. There is a little bit of ptosis, a little more on the left than th e right, but not clear-cut fatigability and extraocular movements are relatively well maintained. He has generalized proximal weakness in the 4- over 5 range in the upper extremities including deltoid and biceps and triceps. Lower extremities, he has similar strength but at least mild resistance on l eg extension bilaterally. IMPRESSION: Today's visit was predominantly counseling regarding the condition and review of all of the strategies for this extremely complex case and weighing the risks and benefits of the different t reatment approaches. The prednisone should not be tapered from a neurologic standpoint because of th e risk of severe exacerbation of his myasthenia gravis. I understand this does have the potential to impair wound healing, but I would not recommend lowering the dose of prednisone. As soon as he can get back on some Mestinon, I would change that from the time span formulation to the short-acting 60 mg and try to adjust that such that he is taking 60-120 mg every 4-6 hours to try and maximize his fu nction if he can tolerate that. Steroid needs to be continued at 60 mg daily. They are longer term challenges on his chance for full recovery, and he is likely to have major challenges given the degre e of debilitation he has now and relative for nutrition and generalized weakness related to his inact ivity. I would anticipate a slow and prolonged stabilization recovery. Myasthenia gravis may still be put into remission, so we will keep working on that. I will continue to monitor his progress. Pl ease contact me with any additional questions or concerns. /[id number]/MODL
[2017-07-05] MEDS: TPN W/ FAMOTIDINE 1 EA BAG IV SCH (22:42)
[2017-07-06] MEDS: HYDROmorphONE/DILAUDID 1 MG/ML INJ IVP PRN ×2 (02:49→17:51)
[2017-07-06] MEDS: PIPERACILLIN/TAZO 4.5 GM/DEX 100 ML IV SCH ×4 (02:50→22:21)
[2017-07-06 05:09] LABS: % IMMATURE GRANULYOCYTES 0.7 % (0.0-1.1); ABSOLUTE IMMATURE GRANULOCYTES 0.08 10^3/uL (0.00-0.10); ADD DIFF? NO; ADD MORPH? NO; ADD SCAN? NO; ATYPICAL LYMPHOCYTE FLAG 0 (0-99); FRAGMENT RBC FLAG 20 (0-99); HEMATOCRIT 33.5 % (40.0-51.0); HEMOGLOBIN 11.6 g/dL (13.7-17.5); LEFT SHIFT FLG 0 (0-99); LIPEMIA HEMOLYSIS FLAG 90 (0-99); MEAN CELL HEMOGLOBIN CONCENTR. 34.6 g/dL (32.4-36.7); MEAN CELL VOLUME 92.5 fL (81.5-99.8); MEAN PLATELET VOLUME 10.5 fL (8.7-11.7); PLATELET CLUMPS FLAG 0 (0-99); PLATELET COUNT 109 10^3/uL (150-400); RED BLOOD CELL COUNT 3.62 10^6/uL (4.40-6.38); RED CELL DISTRIBUTION WIDTH 17.2 % (11.5-15.2)
[2017-07-06 05:19] LABS: ALANINE AMINOTRANSFERASE 44 IU/L (21-72); ALBUMIN 1.8 g/dL (3.5-5.0); ALKALINE PHOSPHATASE 37 IU/L (38-126); ANION GAP 8 mEq/L (8-16); ASPARTATE AMINOTRANSFERASE 19 IU/L (17-59); BILIRUBIN,TOTAL 0.8 mg/dL (0.1-1.4); CARBON DIOXIDE 34 mEq/l (22-31); CHLORIDE 109 mEq/L (97-110); CREATININE 0.8 mg/dL (0.7-1.3); GLOMERULAR FILTRATION RATE > 60; GLUCOSE 140 mg/dL (70-100); POTASSIUM 3.5 mEq/L (3.5-5.2); SODIUM 151 mEq/L (134-144); TOTAL PROTEIN 4.2 g/dL (6.3-8.2)
[2017-07-06] MEDS: METOPROLOL TARTRATE 5 MG/5 ML INJ IVP SCH ×3 (05:40→22:21)
[2017-07-06] MEDS: methylPREDNISolone SOD SUCC 125 MG/2 ML VIAL IVP SCH (08:06)
--- NOTE | 2017-07-06 10:35 | HOSPPROG ---
Hospitalist Progress Note Assessment/Plan: 81 yo M w progressive MG peritonitis: 2/2 inadvertant PEG removal plus air from insufflation during repeat PEG eval his exam had been quite benign up to that point now w repair and on abx 1. continue zosyn 2. hold on starting tube feeds given ileus 3. 07/06- still w absent bowel sounds myasthenia crisis - s/p IVIG x 5 days; some improvement - solumedrol 60 daily mestinon on hold given no PO access restart when ileus has improved neurology feels that tapering steroids will result in flaring myasthenia so will continue for now dysphagia: now w G tube MACHINE HEEL SEAT FITTER hasnt seen in a couple days will ensure they continue to follow nutrition -TPN started 07/05 a-fib - IV metoprolol; AC on hold given need for upcoming PEG 07/06- AF on monitor on BB eliquis remains on hold notable is large amount of blood encountered on 07/04 laparotomy continue to hold htn - on IV metoprolol only carotid stenosis - AC on hold hld - restart statin via PEG when placed goals of care - DNR, no plasmapheresis, PEG Subjective: case d/w Drs. Majano and Pedro. tele: pvc's (interp by me) Objective: Vital Signs Temp Pulse Resp BP Pulse Ox 36.4 C 87 22 H 116/71 99 07/06/17 07:14 07/06/17 07:14 07/06/17 09:04 07/06/17 07:14 07/06/17 07:14 Laboratory Results 07/06/17 04:50 07/06/17 04:50 07/05/17 07/06/17 07/07/17 05:59 05:59 05:59 Intake Total 1336 1126 Output Total 700 725 Balance 636 401 PT 17.1 SEC (12.0-15.0) H 07/04/17 04:15 INR 1.40 (0.83-1.16) H 07/04/17 04:15 - Physical Exam Constitutional: no apparent distress, appears nourished Eyes: PERRL, anicteric sclera Ears, Nose, Mouth, Throat: moist mucous membranes, hearing normal Cardiovascular: regular rate and rhythym, no murmur, rub, or gallop Respiratory: no respiratory distress, no rales or rhonchi Gastrointestinal: normoactive bowel sounds, soft, non-tender abdomen Genitourinary: no bladder fullness, No yao in urethra Skin: warm, normal color Musculoskeletal: full muscle strength, no muscle tenderness Neurologic: AAOx3 Psychiatric: interacting appropriately ICD10 Worksheet Patient Problems: Problems Problem Status Onset Myasthenia exacerbation Acute Palliative care encounter Acute Facial droop Acute Left-sided weakness Acute
--- NOTE | 2017-07-06 13:12 | SOAPPROG ---
[facility] Progress Note Assessment/Plan: Assessment/Plan: - 81yo M c gastric perforation s/p self-remove G tube s/p repair, new G tube - abdomen remains soft and nondistended. - G tube site c/d/i, remains to gravity drainage which is general stomach contents - Still not much for bowel sounds. I think it would be ok to try trickle feeds tomorrow and see how he does - also ok for proph LMWH today - Discussed with Huber 07/04/17 21:06 07/05/17 12:39 07/06/17 13:11 Subjective: Feels well, denies pain Objective: Vital Signs Temp Pulse Resp BP Pulse Ox 36.7 C 82 17 137/77 H 98 07/06/17 11:55 07/06/17 11:55 07/06/17 11:55 07/06/17 11:55 07/06/17 11:55 Laboratory Results 07/06/17 04:50 07/06/17 04:50 07/05/17 07/06/17 07/07/17 05:59 05:59 05:59 Intake Total 1336 1126 Output Total 700 725 Balance 636 401 PT 17.1 SEC (12.0-15.0) H 07/04/17 04:15 INR 1.40 (0.83-1.16) H 07/04/17 04:15 ICD10 Worksheet Patient Problems: Problems Problem Status Onset Myasthenia exacerbation Acute Palliative care encounter Acute Facial droop Acute Left-sided weakness Acute
[2017-07-06] MEDS: ENOXAPARIN 40 MG/0.4 ML SYR SC SCH (15:06)
[2017-07-06] MEDS: D5W NS 1,000 ML IV SCH (15:16)
[2017-07-06] MEDS: TPN W/ FAMOTIDINE 1 EA BAG IV SCH (22:34)
[2017-07-07] MEDS: PIPERACILLIN/TAZO 4.5 GM/DEX 100 ML IV SCH ×4 (02:15→22:26)
[2017-07-07] MEDS: HYDROmorphONE/DILAUDID 1 MG/ML INJ IVP PRN ×2 (02:54→19:28)
[2017-07-07] MEDS: METOPROLOL TARTRATE 5 MG/5 ML INJ IVP SCH ×3 (05:27→22:26)
[2017-07-07 05:57] LABS: % IMMATURE GRANULYOCYTES 0.7 % (0.0-1.1); ABSOLUTE IMMATURE GRANULOCYTES 0.08 10^3/uL (0.00-0.10); ADD DIFF? NO; ADD MORPH? NO; ADD SCAN? NO; ATYPICAL LYMPHOCYTE FLAG 0 (0-99); FRAGMENT RBC FLAG 0 (0-99); HEMATOCRIT 32.2 % (40.0-51.0); HEMOGLOBIN 11.1 g/dL (13.7-17.5); LEFT SHIFT FLG 0 (0-99); LIPEMIA HEMOLYSIS FLAG 90 (0-99); MEAN CELL HEMOGLOBIN 32.2 pg (27.9-34.1); MEAN CELL HEMOGLOBIN CONCENTR. 34.5 g/dL (32.4-36.7); MEAN CELL VOLUME 93.3 fL (81.5-99.8); MEAN PLATELET VOLUME 11.1 fL (8.7-11.7); PLATELET CLUMPS FLAG 0 (0-99); PLATELET COUNT 85 10^3/uL (150-400); RED BLOOD CELL COUNT 3.45 10^6/uL (4.40-6.38); RED CELL DISTRIBUTION WIDTH 17.1 % (11.5-15.2)
[2017-07-07 06:09] LABS: ALANINE AMINOTRANSFERASE 37 IU/L (21-72); ALBUMIN 1.9 g/dL (3.5-5.0); ALKALINE PHOSPHATASE 37 IU/L (38-126); ANION GAP 4 mEq/L (8-16); ASPARTATE AMINOTRANSFERASE 16 IU/L (17-59); BILIRUBIN,TOTAL 0.6 mg/dL (0.1-1.4); CALCIUM 7.7 mg/dL (8.5-10.4); CARBON DIOXIDE 32 mEq/l (22-31); CHLORIDE 114 mEq/L (97-110); CREATININE 0.7 mg/dL (0.7-1.3); GLOMERULAR FILTRATION RATE > 60; GLUCOSE 120 mg/dL (70-100); MAGNESIUM 2.1 mg/dL (1.6-2.3); POTASSIUM 3.2 mEq/L (3.5-5.2); SODIUM 150 mEq/L (134-144); TOTAL PROTEIN 4.3 g/dL (6.3-8.2)
[2017-07-07] MEDS: ENOXAPARIN 40 MG/0.4 ML SYR SC SCH (08:59)
[2017-07-07] MEDS: D5W NS 1,000 ML IV SCH (08:59)
[2017-07-07] MEDS: methylPREDNISolone SOD SUCC 125 MG/2 ML VIAL IVP SCH (08:59)
--- NOTE | 2017-07-07 11:37 | HOSPPROG ---
Hospitalist Progress Note Assessment/Plan: 81 yo M w progressive MG pneumoperitoneum: 2/2 inadvertant PEG removal plus air from insufflation during EGD for repeat PEG eval. S/P repair, POD #3. New PEG placed by surgery, has been draining to gravity. continue zosyn, day 3 trial trickle tube feeds today, check residuals still no bowel sounds myasthenia crisis - s/p IVIG x 5 days; some improvement solumedrol 60 daily, neurology feels that tapering steroids will result in flaring myasthenia so will continue for now mestinon on hold given no PO access, restart when ileus has improved dysphagia: now w G tube INTERLIBR[employer] LOAN SERVICES LIBRARIAN following, recs to maintain NPO status nutrition -TPN started 07/05 start trickle feeds today, wean TPN as he tolerates tube feeds hypernatremia - change fluids to 1/2 NS to equal 100 mLs/hr with TPN a-fib - IV metoprolol; AC on hold given recent surgery with bleeding event noted 07/06- AF on monitor on BB eliquis remains on hold notable is large amount of blood encountered on 07/04 laparotomy continue to hold htn - on IV metoprolol only, change back to oral when clear he tolerates tube feeds and ileus resolved ileus - no bowel sounds today, no BM, cont bowel rest other than trickle tube feeds carotid stenosis - AC on hold hld - restart statin via PEG when tolerating po dvt pplx - resumed pplx lovenox yesterday, ok to restart eliquis in ~3 days per surg goals of care - DNR, no plasmapheresis, PEG dispo - cont inpt, considering inpt rehab vs SNF Subjective: Pt feels okay, up in chair. Remains NPO. No fevers. No abdominal pain, N/V. No BM for several days since surgery. Objective: Vital Signs Temp Pulse Resp BP Pulse Ox 36.5 C 81 18 148/79 H 96 07/07/17 08:00 07/07/17 08:00 07/07/17 08:00 07/07/17 08:00 07/07/17 09:40 Laboratory Results 07/07/17 05:35 07/07/17 05:35 07/06/17 07/07/17 07/08/17 05:59 05:59 05:59 Intake Total 1126 3505 Output Total 725 50 Balance 401 3455 PT 17.1 SEC (12.0-15.0) H 07/04/17 04:15 INR 1.40 (0.83-1.16) H 07/04/17 04:15 - Physical Exam Constitutional: no apparent distress Eyes: PERRL Ears, Nose, Mouth, Throat: moist mucous membranes Cardiovascular: regular rate and rhythym Respiratory: no respiratory distress, clear to auscultation Gastrointestinal: other (absent BS, soft, nondistended, non-tender) Skin: warm Musculoskeletal: generalized weakness Neurologic: AAOx3 Psychiatric: interacting appropriately ICD10 Worksheet Patient Problems: Problems Problem Status Onset Myasthenia exacerbation Acute Palliative care encounter Acute Facial droop Acute Left-sided weakness Acute
[2017-07-07] MEDS: 1/2 NS 1,000 ML IV SCH (11:50)
--- NOTE | 2017-07-07 12:27 | SOAPPROG ---
SOAP Progress Note Assessment/Plan: Assessment/Plan: - 81yo M c gastric perforation s/p self-remove G tube s/p repair, new G tube - Abdomen remains soft and nondistended - G-tube site c/d/i, dressed appropriately - Trickle feeds today, check residuals. If Large would stop but anticipate he shara tolerate 10cc/Hr without issues 07/04/17 21:06 07/05/17 12:39 07/06/17 13:11 07/07/17 12:26 Subjective: More alert today, denies pain Objective: Vital Signs Temp Pulse Resp BP Pulse Ox 36.7 C 98 16 145/88 H 93 07/07/17 11:34 07/07/17 11:34 07/07/17 11:34 07/07/17 11:34 07/07/17 11:34 Laboratory Results 07/07/17 05:35 07/07/17 05:35 07/06/17 07/07/17 07/08/17 05:59 05:59 05:59 Intake Total 1126 3505 Output Total 725 50 Balance 401 3455 PT 17.1 SEC (12.0-15.0) H 07/04/17 04:15 INR 1.40 (0.83-1.16) H 07/04/17 04:15 ICD10 Worksheet Patient Problems: Problems Problem Status Onset Myasthenia exacerbation Acute Palliative care encounter Acute Facial droop Acute Left-sided weakness Acute
[2017-07-07] MEDS: POTASSIUM Cl (KCl) 100 ML IV SCH ×2 (15:14→17:06)
[2017-07-07] MEDS ORDERED: K PHOS 10 MMOL in D5W 250 ML IV ONE (15:30)
[2017-07-07] MEDS: TPN W/ FAMOTIDINE 1 EA BAG IV SCH (22:27)
[2017-07-08] MEDS: HYDROmorphONE/DILAUDID 1 MG/ML INJ IVP PRN (02:40)
[2017-07-08] MEDS: PIPERACILLIN/TAZO 4.5 GM/DEX 100 ML IV SCH ×3 (05:10→18:00)
[2017-07-08] MEDS: METOPROLOL TARTRATE 5 MG/5 ML INJ IVP SCH (05:10)
[2017-07-08 05:44] LABS: % IMMATURE GRANULYOCYTES 1.4 % (0.0-1.1); ABSOLUTE IMMATURE GRANULOCYTES 0.17 10^3/uL (0.00-0.10); ABSOLUTE NRBC COUNT 0.02 10^3/uL (0-0.01); ADD DIFF? NO; ADD MORPH? NO; ADD SCAN? NO; ATYPICAL LYMPHOCYTE FLAG 0 (0-99); FRAGMENT RBC FLAG 0 (0-99); HEMOGLOBIN 12.3 g/dL (13.7-17.5); LEFT SHIFT FLG 10 (0-99); LIPEMIA HEMOLYSIS FLAG 90 (0-99); MEAN CELL HEMOGLOBIN 32.3 pg (27.9-34.1); MEAN CELL HEMOGLOBIN CONCENTR. 35.1 g/dL (32.4-36.7); MEAN CELL VOLUME 91.9 fL (81.5-99.8); NRBC-AUTO% 0.2 % (0.0-0.2); PLATELET CLUMPS FLAG 0 (0-99); PLATELET COUNT 102 10^3/uL (150-400); RED BLOOD CELL COUNT 3.81 10^6/uL (4.40-6.38); RED CELL DISTRIBUTION WIDTH 16.6 % (11.5-15.2)
[2017-07-08] MEDS: 1/2 NS 1,000 ML IV SCH (06:01)
[2017-07-08 06:02] LABS: ALANINE AMINOTRANSFERASE 38 IU/L (21-72); ALBUMIN 2.2 g/dL (3.5-5.0); ALKALINE PHOSPHATASE 45 IU/L (38-126); ANION GAP 8 mEq/L (8-16); ASPARTATE AMINOTRANSFERASE 21 IU/L (17-59); BILIRUBIN,TOTAL 0.7 mg/dL (0.1-1.4); CALCIUM 7.9 mg/dL (8.5-10.4); CARBON DIOXIDE 29 mEq/l (22-31); CHLORIDE 108 mEq/L (97-110); CREATININE 0.7 mg/dL (0.7-1.3); GLOMERULAR FILTRATION RATE > 60; GLUCOSE 100 mg/dL (70-100); MAGNESIUM 2.1 mg/dL (1.6-2.3); POTASSIUM 3.7 mEq/L (3.5-5.2); SODIUM 145 mEq/L (134-144); TOTAL PROTEIN 4.7 g/dL (6.3-8.2)
[2017-07-08] MEDS: methylPREDNISolone SOD SUCC 125 MG/2 ML VIAL IVP SCH (09:38)
[2017-07-08] MEDS: ENOXAPARIN 40 MG/0.4 ML SYR SC SCH (09:38)
--- NOTE | 2017-07-08 10:30 | HOSPPROG ---
Hospitalist Progress Note Assessment/Plan: 81 yo M admitted with MG crisis, developed dysphagia requiring peg tube placement, which he pulled out, leading to gastric perforation requiring laparotomy pneumoperitoneum: 2/2 inadvertant PEG removal plus air from insufflation during subsequent EGD for repeat PEG eval. S/P laparotomy with repair, POD #4. New PEG placed by surgery, has been draining to gravity. continue zosyn, day 4 tolerating tube feeds now will resume oral meds discussed with surgery myasthenia crisis - s/p IVIG x 5 days; some improvement solumedrol 60 daily, neurology feels that tapering steroids will result in flaring myasthenia so will continue high dose for up to 2 months resume mestinon today, but will use short acting rather than timed release per neuro recs, start at 60 mg q6h, up-titrate for symptom control dysphagia: now w G tube ANALYST [employer]OD AND BEVERAGE following, recs to maintain NPO status nutrition -TPN started 07/05 advance tube feeds, wean TPN as he tolerates tube feeds encephalopathy - suspect underlying dementia prn seroquel for agitation hypernatremia - 1/2 NS to equal 100 mLs/hr with TPN a-fib - 07/06 - AF on monitor, on BB, which can be changed back to PO from IV as G tube now working eliquis remains on hold due to large amount of blood encountered on 07/04 laparotomy htn - change back to oral metoprolol ileus - still no BM, surg ok with colace/senna carotid stenosis - AC on hold hld - restart statin via PEG dvt pplx - resumed pplx lovenox 07/06, ok to restart eliquis in ~1-2 days per surg goals of care - DNR, no plasmapheresis, PEG dispo - cont inpt, considering inpt rehab vs SNF Subjective: Pt up in chair. denies pain. says he had a BM, but he seems confused. RN confirms he has not had a BM. No CP or SOB. tolerating tube feeds Objective: Vital Signs Temp Pulse Resp BP Pulse Ox 36.4 C 96 18 155/85 H 95 07/08/17 07:30 07/08/17 07:30 07/08/17 07:30 07/08/17 07:30 07/08/17 07:30 Laboratory Results 07/08/17 05:20 07/08/17 05:20 07/07/17 07/08/17 07/09/17 05:59 05:59 05:59 Intake Total 3505 3089 Output Total 50 150 Balance 3455 2939 PT 17.1 SEC (12.0-15.0) H 07/04/17 04:15 INR 1.40 (0.83-1.16) H 07/04/17 04:15 - Physical Exam Constitutional: no apparent distress Eyes: PERRL Ears, Nose, Mouth, Throat: moist mucous membranes Cardiovascular: regular rate and rhythym Respiratory: no respiratory distress, clear to auscultation Gastrointestinal: other (hypoactive bowel tones, soft, nd, nt, incision c/d/i, PEG tube in place) Skin: warm Musculoskeletal: generalized weakness Psychiatric: poor memory ICD10 Worksheet Patient Problems: Problems Problem Status Onset Myasthenia exacerbation Acute Palliative care encounter Acute Facial droop Acute Left-sided weakness Acute
[2017-07-08] MEDS ORDERED: ACETAMINOPHEN 325 MG TAB TUBE PRN (10:37)
[2017-07-08] MEDS ORDERED: METOPROLOL TARTRATE 25 MG TAB PO SCH (10:45)
[2017-07-08] MEDS ORDERED: SENNOSIDES 17.6 MG/10 ML UDL PO SCH (10:45)
[2017-07-08] MEDS ORDERED: QUEtiapine FUMARATE 25 MG TAB PO PRN (10:50)
--- NOTE | 2017-07-08 12:03 | SOAPPROG ---
SOAP Progress Note Assessment/Plan: Assessment/Plan: - 81yo M c gastric perforation s/p self-remove G tube s/p repair, new G tube - abdomen still soft and ND - G tube site c/d/i, tolerating trickle feeds. Would advance ad tolerates - Incisions c/d/i, remove chris 07/13 - Dr Mcdaniel to see tomorrow 07/04/17 21:06 07/05/17 12:39 07/06/17 13:11 07/07/17 12:26 07/08/17 12:01 Subjective: Doing well, has some pain but tolerating TFs Objective: Vital Signs Temp Pulse Resp BP Pulse Ox 36.4 C 96 18 155/85 H 95 07/08/17 07:30 07/08/17 07:30 07/08/17 07:30 07/08/17 07:30 07/08/17 07:30 Laboratory Results 07/08/17 05:20 07/08/17 05:20 07/07/17 07/08/17 07/09/17 05:59 05:59 05:59 Intake Total 3505 3089 Output Total 50 150 Balance 3455 2939 PT 17.1 SEC (12.0-15.0) H 07/04/17 04:15 INR 1.40 (0.83-1.16) H 07/04/17 04:15 ICD10 Worksheet Patient Problems: Problems Problem Status Onset Myasthenia exacerbation Acute Palliative care encounter Acute Facial droop Acute Left-sided weakness Acute
[2017-07-08] MEDS: METOPROLOL TARTRATE 25 MG TAB PO SCH ×2 (12:39→21:25)
[2017-07-08] MEDS: ASPIRIN 81 MG CHEWABLE TAB TUBE SCH (12:40)
[2017-07-08] MEDS: ATORVASTATIN CALCIUM 40 MG TAB TUBE SCH (12:40)
[2017-07-08] MEDS: DOCUSATE SODIUM 100 MG CAP PO SCH ×2 (13:17→21:23)
--- NOTE | 2017-07-08 15:27 | NEUROPROG ---
Assessment: The patient has myasthenia gravis with a prominent exacerbation when he came in but stabilized. He is now quite weak and is not able to safely swallow. He will continue on prednisone 60 mg daily with the feeding tube in place now. I am going to restart Mestinon using 60 mg every 6 hours to see if we can stabilize everything and give him a chance for gradual improvement. It is very unclear whether he will regain swallowing again, but there is still a possibility of improvement over the next many weeks. Subjective: The patient is reporting no major changes in symptoms but perhaps a little more drooping of the eyes. He has started on tube feedings. Objective: Vital Signs Temp Pulse Resp BP Pulse Ox 36.4 C 84 16 127/94 H 93 07/08/17 15:08 07/08/17 15:08 07/08/17 15:08 07/08/17 15:08 07/08/17 15:08 Laboratory Results 07/08/17 05:20 07/08/17 05:20 07/07/17 07/08/17 07/09/17 05:59 05:59 05:59 Intake Total 3505 3089 Output Total 50 150 Balance 3455 2939 PT 17.1 SEC (12.0-15.0) H 07/04/17 04:15 INR 1.40 (0.83-1.16) H 07/04/17 04:15 I do not detect any change in his examination today. Allergies/Adverse Reactions: No Known Allergies Allergy (Verified 06/23/17 16:02)
[2017-07-08] MEDS: PYRIDOSTIGMINE BROMIDE 60 MG TAB PO SCH ×2 (15:57→21:23)
[2017-07-08] MEDS ORDERED: K PHOS 10 MMOL in D5W 250 ML IV ONE (16:00)
--- NOTE | 2017-07-08 16:27 | ASMTCMCOM ---
CM Note CM Note Notes: Updated notes sent to [facility] rehab, plan remains the same, pt will dc to [facility] rehab when medically stable, ELISE w/f. Date Signed: 07/08/2017 04:26 PM Electronically Signed By:Genesis Muhammad RN
[2017-07-08] MEDS: TPN W/ FAMOTIDINE 1 EA BAG IV SCH (21:23)
[2017-07-08] MEDS: SENNOSIDES 17.6 MG/10 ML UDL TUBE SCH (21:26)
[2017-07-09] MEDS: PIPERACILLIN/TAZO 4.5 GM/DEX 100 ML IV SCH ×4 (00:52→18:19)
[2017-07-09] MEDS: PYRIDOSTIGMINE BROMIDE 60 MG TAB PO SCH ×4 (03:52→22:13)
[2017-07-09 06:02] LABS: % IMMATURE GRANULYOCYTES 1.8 % (0.0-1.1); ABSOLUTE IMMATURE GRANULOCYTES 0.22 10^3/uL (0.00-0.10); ABSOLUTE NRBC COUNT 0.04 10^3/uL (0-0.01); ADD DIFF? NO; ADD MORPH? NO; ADD SCAN? NO; ATYPICAL LYMPHOCYTE FLAG 0 (0-99); FRAGMENT RBC FLAG 0 (0-99); HEMATOCRIT 34.3 % (40.0-51.0); LEFT SHIFT FLG 20 (0-99); LIPEMIA HEMOLYSIS FLAG 90 (0-99); MEAN CELL HEMOGLOBIN 32.1 pg (27.9-34.1); MEAN CELL VOLUME 91.7 fL (81.5-99.8); MEAN PLATELET VOLUME 10.3 fL (8.7-11.7); NRBC-AUTO% 0.3 % (0.0-0.2); PLATELET CLUMPS FLAG 0 (0-99); PLATELET COUNT 104 10^3/uL (150-400); RED BLOOD CELL COUNT 3.74 10^6/uL (4.40-6.38); RED CELL DISTRIBUTION WIDTH 16.5 % (11.5-15.2)
[2017-07-09 06:13] LABS: ALANINE AMINOTRANSFERASE 64 IU/L (21-72); ALBUMIN 2.1 g/dL (3.5-5.0); ALKALINE PHOSPHATASE 58 IU/L (38-126); ANION GAP 5 mEq/L (8-16); ASPARTATE AMINOTRANSFERASE 44 IU/L (17-59); BILIRUBIN,TOTAL 0.7 mg/dL (0.1-1.4); CALCIUM 7.7 mg/dL (8.5-10.4); CARBON DIOXIDE 28 mEq/l (22-31); CHLORIDE 106 mEq/L (97-110); CREATININE 0.7 mg/dL (0.7-1.3); GLOMERULAR FILTRATION RATE > 60; GLUCOSE 118 mg/dL (70-100); MAGNESIUM 2.1 mg/dL (1.6-2.3); POTASSIUM 3.8 mEq/L (3.5-5.2); SODIUM 139 mEq/L (134-144); TOTAL PROTEIN 4.5 g/dL (6.3-8.2)
[2017-07-09] MEDS: predniSONE 20 MG TAB TUBE SCH (09:29)
[2017-07-09] MEDS: ASPIRIN 81 MG CHEWABLE TAB TUBE SCH (09:29)
[2017-07-09] MEDS: ATORVASTATIN CALCIUM 40 MG TAB TUBE SCH (09:29)
[2017-07-09] MEDS: METOPROLOL TARTRATE 25 MG TAB PO SCH ×2 (09:29→22:14)
[2017-07-09] MEDS: DOCUSATE SODIUM 100 MG CAP PO SCH ×2 (09:29→22:25)
[2017-07-09] MEDS: ENOXAPARIN 40 MG/0.4 ML SYR SC SCH (09:30)
[2017-07-09] MEDS: SENNOSIDES 17.6 MG/10 ML UDL TUBE SCH ×2 (09:30→22:25)
--- NOTE | 2017-07-09 09:36 | HOSPPROG ---
Hospitalist Progress Note Assessment/Plan: 81 yo M admitted with MG crisis, developed dysphagia requiring peg tube placement, which he pulled out, leading to gastric perforation requiring laparotomy pneumoperitoneum: 2/2 inadvertant PEG removal plus air from insufflation during subsequent EGD for repeat PEG eval. S/P laparotomy with repair, POD #5. New PEG placed by surgery, has been draining to gravity. continue zosyn, day 5 tolerating tube feeds now, almost at goal resumed oral meds discussed with surgery myasthenia crisis - s/p IVIG x 5 days; some improvement solumedrol 60 daily, neurology feels that tapering steroids will result in flaring myasthenia so will continue high dose for up to 2 months resume mestinon today, but will use short acting rather than timed release per neuro recs, start at 60 mg q6h, up-titrate for symptom control dysphagia: now w G tube PRINCIPAL PROCESS ENGINEER following, recs to maintain NPO status nutrition -TPN started 07/05 wean off TPN today as nearly at goal on tube feeds encephalopathy - suspect underlying dementia prn seroquel for agitation hypernatremia - 1/2 NS to equal 100 mLs/hr with TPN a-fib - 07/06 - AF on monitor, on BB, which can be changed back to PO from IV as G tube now working eliquis remains on hold due to large amount of blood encountered on 07/04 laparotomy htn - change back to oral metoprolol ileus - still no BM, surg ok with colace/senna carotid stenosis - AC on hold hld - restart statin via PEG dvt pplx - resumed pplx lovenox 07/06, ok to restart eliquis in ~1-2 days per surg goals of care - DNR, no plasmapheresis, PEG dispo - cont inpt, considering inpt rehab vs SNF Subjective: Pt feels well. Tolerating tube feeds, nearly at goal. No N/V. + BM. No fevers/chills. Objective: Vital Signs Temp Pulse Resp BP Pulse Ox 36.4 C 91 16 139/77 H 94 07/09/17 07:47 07/09/17 07:47 07/09/17 07:47 07/09/17 07:47 07/09/17 07:47 Laboratory Results 07/09/17 05:45 07/09/17 05:45 07/08/17 07/09/17 07/10/17 05:59 05:59 05:59 Intake Total 3089 Output Total 150 Balance 2939 PT 17.1 SEC (12.0-15.0) H 07/04/17 04:15 INR 1.40 (0.83-1.16) H 07/04/17 04:15 - Physical Exam Constitutional: no apparent distress Eyes: PERRL Ears, Nose, Mouth, Throat: moist mucous membranes Cardiovascular: regular rate and rhythym Respiratory: no respiratory distress, clear to auscultation Gastrointestinal: normoactive bowel sounds, soft, non-tender abdomen Skin: warm Musculoskeletal: generalized weakness Psychiatric: poor memory ICD10 Worksheet Patient Problems: Problems Problem Status Onset Myasthenia exacerbation Acute Palliative care encounter Acute Facial droop Acute Left-sided weakness Acute
--- NOTE | 2017-07-09 12:36 | SOAPPROG ---
SOAP Progress Note Assessment/Plan: Assessment: 81yo M c gastric perforation s/p self-remove G tube s/p repair, new G tube placement. POD#4 Pain controlled Tolerating tube feeds - almost to goal IV Zosyn Plan dc tomorrow, chris out 07/13. f/u martediller 1-[address] Mcdaniel and Dr. Pugh S: feeling well without pain, nausea or distension O: sitting upright inchair, comfortable, at bedside No increased WOB +BS throughout, soft, nondistended, nontender. Incision CDI with chris intact. No e/o infection Objective: Vital Signs Temp Pulse Resp BP Pulse Ox 36.5 C 81 20 119/67 94 07/09/17 12:03 07/09/17 12:03 07/09/17 12:03 07/09/17 12:03 07/09/17 12:03 Laboratory Results 07/09/17 05:45 07/09/17 05:45 07/08/17 07/09/17 07/10/17 05:59 05:59 05:59 Intake Total 3089 Output Total 150 Balance 2939 PT 17.1 SEC (12.0-15.0) H 07/04/17 04:15 INR 1.40 (0.83-1.16) H 07/04/17 04:15 ICD10 Worksheet Patient Problems: Problems Problem Status Onset Myasthenia exacerbation Acute Palliative care encounter Acute Facial droop Acute Left-sided weakness Acute
[2017-07-10] MEDS: PIPERACILLIN/TAZO 4.5 GM/DEX 100 ML IV SCH ×5 (00:17→23:44)
[2017-07-10] MEDS: PYRIDOSTIGMINE BROMIDE 60 MG TAB PO SCH ×4 (02:58→21:46)
[2017-07-10 03:38] LABS: % IMMATURE GRANULYOCYTES 1.5 % (0.0-1.1); ABSOLUTE IMMATURE GRANULOCYTES 0.19 10^3/uL (0.00-0.10); ABSOLUTE NRBC COUNT 0.04 10^3/uL (0-0.01); ADD DIFF? NO; ADD MORPH? NO; ADD SCAN? NO; ATYPICAL LYMPHOCYTE FLAG 0 (0-99); FRAGMENT RBC FLAG 0 (0-99); HEMATOCRIT 35.1 % (40.0-51.0); HEMOGLOBIN 12.3 g/dL (13.7-17.5); LEFT SHIFT FLG 10 (0-99); LIPEMIA HEMOLYSIS FLAG 90 (0-99); MEAN CELL HEMOGLOBIN 31.9 pg (27.9-34.1); MEAN CELL VOLUME 90.9 fL (81.5-99.8); MEAN PLATELET VOLUME 11.1 fL (8.7-11.7); NRBC-AUTO% 0.3 % (0.0-0.2); PLATELET CLUMPS FLAG 0 (0-99); PLATELET COUNT 120 10^3/uL (150-400); RED BLOOD CELL COUNT 3.86 10^6/uL (4.40-6.38); RED CELL DISTRIBUTION WIDTH 16.8 % (11.5-15.2)
[2017-07-10 03:56] LABS: ALANINE AMINOTRANSFERASE 80 IU/L (21-72); ALBUMIN 2.1 g/dL (3.5-5.0); ALKALINE PHOSPHATASE 81 IU/L (38-126); ANION GAP 7 mEq/L (8-16); ASPARTATE AMINOTRANSFERASE 50 IU/L (17-59); BILIRUBIN,TOTAL 0.7 mg/dL (0.1-1.4); CALCIUM 7.8 mg/dL (8.5-10.4); CARBON DIOXIDE 28 mEq/l (22-31); CHLORIDE 104 mEq/L (97-110); CREATININE 0.8 mg/dL (0.7-1.3); GLOMERULAR FILTRATION RATE > 60; GLUCOSE 103 mg/dL (70-100); POTASSIUM 3.9 mEq/L (3.5-5.2); SODIUM 139 mEq/L (134-144); TOTAL PROTEIN 4.5 g/dL (6.3-8.2)
[2017-07-10] MEDS: METOPROLOL TARTRATE 25 MG TAB PO SCH ×2 (09:49→21:45)
[2017-07-10] MEDS: predniSONE 20 MG TAB TUBE SCH (09:49)
[2017-07-10] MEDS: ATORVASTATIN CALCIUM 40 MG TAB TUBE SCH (09:49)
[2017-07-10] MEDS: ENOXAPARIN 40 MG/0.4 ML SYR SC SCH (09:50)
[2017-07-10] MEDS: DOCUSATE SODIUM 100 MG CAP PO SCH ×2 (09:51→22:22)
[2017-07-10] MEDS: ASPIRIN 81 MG CHEWABLE TAB TUBE SCH (09:51)
[2017-07-10] MEDS: SENNOSIDES 17.6 MG/10 ML UDL TUBE SCH ×2 (09:52→22:22)
[2017-07-10] MEDS ORDERED: HYDROmorphONE/DILAUDID 1 MG/ML INJ IVP PRN (10:23)
[2017-07-10] MEDS ORDERED: HYDROmorphone HCL/NS/PF 0.4 MG/2 ML SYR IVP PRN (10:25)
--- NOTE | 2017-07-10 11:49 | SOAPPROG ---
SOAP Progress Note Assessment/Plan: Assessment: 81yo M c gastric perforation s/p self-remove G tube s/p repair, new G tube placement. POD#5 Pain controlled Tolerating tube feeds Return of bowel function IV Zosyn OK to DC from surgery perspective. chris out 07/13. f/u danica 1-[address] Mcdaniel S: feeling well without pain, nausea or distension O: sitting upright in chair, comfortable, at bedside No increased WOB +BS throughout, soft, nondistended, nontender. Incision CDI with chris intact. No e/o infection Objective: Vital Signs Temp Pulse Resp BP Pulse Ox 36.4 C 90 20 121/67 H 94 07/10/17 07:37 07/10/17 07:37 07/10/17 07:37 07/10/17 07:37 07/10/17 07:37 Microbiology 07/04/17 22:00 Blood Culture - Final Blood Laboratory Results 07/10/17 03:25 07/10/17 03:25 07/09/17 07/10/17 07/11/17 05:59 05:59 05:59 Intake Total 1300 810 Balance 1300 810 PT 17.1 SEC (12.0-15.0) H 07/04/17 04:15 INR 1.40 (0.83-1.16) H 07/04/17 04:15 ICD10 Worksheet Patient Problems: Problems Problem Status Onset Myasthenia exacerbation Acute Palliative care encounter Acute Facial droop Acute Left-sided weakness Acute
--- NOTE | 2017-07-10 12:07 | HOSPPROG ---
Hospitalist Progress Note Assessment/Plan: 81 yo M admitted with MG crisis, developed dysphagia requiring peg tube placement, which he pulled out, leading to gastric perforation requiring laparotomy pneumoperitoneum: 2/2 inadvertant PEG removal plus air from insufflation during subsequent EGD for repeat PEG eval. S/P laparotomy with repair, POD #5. New PEG placed by surgery, has been draining to gravity. on zosyn, day 6 tolerating tube feeds now, almost at goal resumed oral meds discussed with surgery myasthenia crisis - s/p IVIG x 5 days; some improvement solumedrol 60 daily, neurology feels that tapering steroids will result in flaring myasthenia so will continue high dose for up to 2 months cont mestinon at 60 mg q6h dysphagia: now w G tube ROD MILL OPERATOR following, recs to maintain NPO status nutrition -TPN started 07/05, off 07/09 encephalopathy - suspect underlying dementia prn seroquel for agitation hypernatremia - resolved a-fib - 07/06 - AF on monitor, on BB eliquis held after surgery due to large amt of blood found (likely due to gastric injury from peg tube) will resume eliquis today, cleared by surgery htn - cont metoprolol ileus - still no BM, surg ok with colace/senna carotid stenosis - resume AC today hld - cont statin via PEG dvt pplx - eliquis goals of care - DNR, no plasmapheresis, PEG dispo - cont inpt, considering inpt rehab vs SNF Subjective: Pt resting comfortably in chair, no complaints. Tolerating tube feeds. No N/V/D. No fevers. +BM's Objective: Vital Signs Temp Pulse Resp BP Pulse Ox 36.4 C 90 20 121/67 H 94 07/10/17 07:37 07/10/17 07:37 07/10/17 07:37 07/10/17 07:37 07/10/17 07:37 Microbiology 07/04/17 22:00 Blood Culture - Final Blood Laboratory Results 07/10/17 03:25 07/10/17 03:25 07/09/17 07/10/17 07/11/17 05:59 05:59 05:59 Intake Total 1300 810 Balance 1300 810 PT 17.1 SEC (12.0-15.0) H 07/04/17 04:15 INR 1.40 (0.83-1.16) H 07/04/17 04:15 - Physical Exam Constitutional: no apparent distress Eyes: PERRL Ears, Nose, Mouth, Throat: moist mucous membranes Cardiovascular: regular rate and rhythym Respiratory: no respiratory distress, clear to auscultation Gastrointestinal: normoactive bowel sounds, soft, non-tender abdomen Skin: warm Musculoskeletal: generalized weakness Neurologic: AAOx3 Psychiatric: poor memory ICD10 Worksheet Patient Problems: Problems Problem Status Onset Myasthenia exacerbation Acute Palliative care encounter Acute Facial droop Acute Left-sided weakness Acute
--- NOTE | 2017-07-10 14:35 | ASMTCMCOM ---
CM Note CM Note Notes: Spoke with pt and his as they were disappointed not to be discharged to [facility] today. Explained to them that [facility] only had 1 bed available today and someone else took it. Assured them if pt was medically ready to d/c tomorrow, a bed is available for him at [facility]. Also spoke with Carolyn from [facility] and confirmed. Date Signed: 07/10/2017 02:34 PM Electronically Signed By:LUISA Page
[2017-07-10] MEDS ORDERED: APIXABAN 5 MG TAB PO SCH (21:00)
[2017-07-10] MEDS ORDERED: APIXABAN 5 MG TAB TUBE SCH (23:10)
[2017-07-10] MEDS ORDERED: METOPROLOL TARTRATE 25 MG TAB TUBE SCH (23:11)
[2017-07-10] MEDS ORDERED: QUEtiapine FUMARATE 25 MG TAB TUBE PRN (23:11)
[2017-07-10] MEDS ORDERED: PYRIDOSTIGMINE BROMIDE 60 MG TAB TUBE SCH (23:11)
[2017-07-11] MEDS: PYRIDOSTIGMINE BROMIDE 60 MG TAB TUBE SCH ×2 (03:27→09:29)
[2017-07-11 04:32] LABS: MAGNESIUM 2.2 mg/dL (1.6-2.3)
[2017-07-11] MEDS: PIPERACILLIN/TAZO 4.5 GM/DEX 100 ML IV SCH ×2 (05:34→12:01)
[2017-07-11 07:39] VITALS: BP 139/80; PULSE 80; RESP 20; TEMP 97.9; O2SAT 94
--- NOTE | 2017-07-11 09:05 | PDIAF ---
- Diagnosis Diagnosis: myasthenia gravis, dysphagia on tube feeds, s/p laparotomy Code Status: Do Not Resuscitate - Medication Management Discharge Medications: Medications to Continue on Transfer Epinastine HCl [Elestat] 5 ml OP BID PRN 06/22/17 [Last Taken Unknown] Acetaminophen [Tylenol 325mg (*)] 650 mg TUBE Q4HRS PRN tab 07/11/17 [Last Taken Unknown] Apixaban [Eliquis] 5 mg TUBE BID #60 tab 07/11/17 [Last Taken Unknown] Aspirin [Aspirin 81mg (*)] 81 mg TUBE DAILY #30 tab.chew 07/11/17 [Last Taken Unknown] Atorvastatin Calcium [Lipitor 40 mg (*)] 40 mg TUBE DAILY #30 tab 07/11/17 [ Last Taken Unknown] Metoprolol Tartrate [Lopressor 25 mg (*)] 12.5 mg TUBE BID #30 tab 07/11/17 [ Last Taken Unknown] Pyridostigmine Warren [Mestinon 60mg (*)] 60 mg TUBE Q6H #120 tab 07/11/17 [ Last Taken Unknown] QUEtiapine FUMARATE [Seroquel 25 mg (*)] 12.5 mg TUBE HS PRN #30 tab 07/11/17 [ Last Taken Unknown] predniSONE 60 mg TUBE DAILY #30 tablet 07/11/17 [Last Taken Unknown] Discharge Medications: Refer to the Discharge Home Medication list for PRN reason. - Orders Services needed: Registered Nurse, Certified Film Projector Operator, Physical Therapy, Occupational Therapy, Speech Language Pathologist Diet Recommendation: other (NPO, tube feeds) Diet Texture: Water Protocol, Ice Chips Tube feeding: Jevity 1.5, 55 mL's / hr Gallegos: Not applicable Additional: * Measure NG/PEG residual every 4 hr while awake. * If residual > 100 ml, hold formula for 2 hr, recheck, and restart at the previouly tolerated rate if residual <100 ml. - Labs/Radiology CMP Date: 07/18/17 (results to alfonzo thomas) - Follow Up Care Current Providers and Referrals: Terrence Kennedy MD [Primary Care Provider] - As per Instructions Shelton Gomez DO [Medical Doctor] - Tuan Majano MD [Medical Doctor] -
[2017-07-11] MEDS: ATORVASTATIN CALCIUM 40 MG TAB TUBE SCH (09:29)
[2017-07-11] MEDS: ASPIRIN 81 MG CHEWABLE TAB TUBE SCH (09:30)
[2017-07-11] MEDS: predniSONE 20 MG TAB TUBE SCH (09:31)
[2017-07-11] MEDS: SENNOSIDES 17.6 MG/10 ML UDL TUBE SCH (09:41)
--- NOTE | 2017-07-11 10:40 | ASMTCMCOM ---
CM Note CM Note Notes: Pt is being discharged today. CM spoke w/ Carolyn at [facility] and there is a bed. Wheelchair pear picker scheduled for 1:30PM by Carolyn. CM met w/ pts and she is on board w/ the discharge. CM provided DONI Martínez w/ phone number to give report to [facility]. CM sent over d/c orders. CM available for changes. Date Signed: 07/11/2017 10:39 AM Electronically Signed By:PRAVIN Sevilla
--- NOTE | 2017-07-11 15:12 | ASDISCHSUM ---
Discharge Information Plan Status:SNF Medically Cleared to Leave:07/11/2017 Discharge Date:07/11/2017 01:39 PM D/C Disposition:Halfway Facility ADT D/C Disposition:Halfway Facility Projected Discharge Date:07/11/2017 11:00 AM Transportation at D/C: Discharge Delay Reason: Follow-Up Date:07/11/2017 11:00 AM Discharge Slot: Final Diagnosis: Placement Information Referral Type:*Long Term/SNF Referral ID:[id number] Provider Name:[facility] Address 1:[address] Address 2: City:[place] Selection Factors: State:[place] Patient Contact Information Contact Name:PADMINI Relationship: Address:[address] City:[place] Alternate Phone: State/Zip Code:[place] [address] Email: Financial Information Financial Class: Primary Plan Desc:MEDICARE INPATIENT Primary Plan Number:[id number] Secondary Plan Desc:[employer] [facility] Secondary Plan Number:[id number] Assessment Information [facility] CM Progress Note CM Note CM Note Notes: Pt was admitted with a Myasthenia Gravis exacerbation. Currently having difficulty swallowing, increased weakness, and respiratory distress. Confused - may have baseline dementia, family reported he has not had formal diagnosis.. PT/OT recommending homecare. Pt transferring to . CM will follow for any d/c needs. Date Signed: 06/24/2017 03:24 PM Electronically Signed By:LUISA Page [facility] CM Progress Note CM Note CM Note Notes: CM spoke w/pt, and OT therapist re; dc poc. unable to meet pt's needs at home at this time, he needs a lot of assistance w/ ADLs, is cognitively impaired as well as having swallowing issues and is falling at home. [facility], CM sent referral. Date Signed: 06/25/2017 11:01 AM Electronically Signed By:Genesis Muhammad RN [facility] Progress Note CM Note CM Note Notes: Pt continues w/difficulty with swallowing and sob. Neurologist spoke w/ re; what aggresive tx will look like. Meeting w/ pt's children, , and neuro to take place tomorrow at 10am. Palliative consult ordered, CM w/f. Date Signed: 06/28/2017 10:47 AM Electronically Signed By:Genesis Muhammad RN [facility] ELISE Progress Note CM Note CM Note Notes: CM spoke w/pt's family, plan is still for pt to go to [facility] once he gets peg tube and is medically stable. Updated notes sent to Ruthie at [facility]. Date Signed: 06/29/2017 12:29 PM Electronically Signed By:Genesis Muhammad RN [facility] CM Progress Note CM Note CM Note Notes: Spoke w/DONI, pt pulled out PEG tube last night. Will reinsert today and have overnight sitter to make sure it stays in, then can dc in 2 days. Ruthie may [facility] notified. Date Signed: 07/01/2017 02:51 PM Electronically Signed By:Genesis Muhammad RN [facility] CM Progress Note CM Note CM Note Notes: Reviewed chart, spoke med/ DONI Camara re: d/c poc, pt's progress. Per RN, pt to have PEG tube replaced Tue07/04/17. Pt will require 2-3 additional days in hospital following PEG replacement to ensure tube is properly working and healing. Pt to discharge to [facility] when medically stable. CM to update Carolyn at on Tue; will cont to follow. Date Signed: 07/03/2017 04:47 PM Electronically Signed By:Evie Braun RN [facility] CM Progress Note CM Note CM Note Notes: CM spoke sonu Espinoza RN regarding d/c POC. Pt is having surgery today to have PEG replaced. CM notified Carolyn at [facility]. CM available for changes. Date Signed: 07/04/2017 10:54 AM Electronically Signed By:PRAVIN Sevilla [facility] CM Progress Note CM Note CM Note Notes: Updated notes sent to [facility], plan remains the same, pt will dc to [facility] when medically stable, ELISE w/f. Date Signed: 07/08/2017 04:26 PM Electronically Signed By:Genesis Muhammad RN [facility] CM Progress Note CM Note CM Note Notes: Spoke with pt and his as they were disappointed not to be discharged to [facility] today. Explained to them that [facility] only had 1 bed available today and someone else took it. Assured them if pt was medically ready to d/c tomorrow, a bed is available for him at [facility]. Also spoke with Carolyn from [facility] and confirmed. Date Signed: 07/10/2017 02:34 PM Electronically Signed By:LUISA Page [facility] CM Progress Note CM Note CM Note Notes: Pt is being discharged today. ELISE spoke w/ Carolyn at [facility] and there is a bed. Wheelchair pickle cutter scheduled for 1:30PM by Carolyn. CM met w/ pts and she is on board w/ the discharge. CM provided DONI Martínez w/ phone number to give report to [facility]. CM sent over d/c orders. CM available for changes. Date Signed: 07/11/2017 10:39 AM Electronically Signed By:PRAVIN Sevilla Intervention Information Intervention Type:*Incorrect Registration Date of Service:06/24/2017 11:33 AM Patient Type:Observation Staff Member:DONI Roberts, Vanessa Hours: Discipline: Severity: Comment: Intervention Type:*IM-Signed Date of Service:07/11/2017 10:47 AM Patient Type:Inpatient Staff Member:Lesly Adams Hours: Discipline: Severity: Comment:
--- NOTE | 2017-07-12 05:38 | GDS ---
[f rep st] DISCHARGE SUMMARY DISCHARGE DIAGNOSES: 1. Myasthenia gravis in crisis, now stable. 2. Dysphagia, requiring percutaneous endoscopic gastrostomy tube placement. 3. Pneumoperitoneum, secondary to inadvertent percutaneous endoscopic gastrostomy removal, followed by air insufflation during subsequent esophagogastroduodenoscopy for repeat percutaneous endoscopic g astrostomy evaluation, status post laparotomy with repair. 4. Presence of gastrostomy tube on tube feeds with n.p.o. status. 5. Encephalopathy with suspected underlying dementia; condition stable. 6. Atrial fibrillation. 7. Chronic anticoagulation. 8. Hypertension. 9. Postoperative ileus, resolved. CONSULTANTS: 1. Dr. Shelton Gomez, Neurology. 2. Dr. Tuan Majano, General Surgery. 3. Dr. Burt Acosta, Gastroenterology. HISTORY: For details, please see the history and physical dated June 23, 2017. In brief, the igor daniels is an 81-year-old male with history of myasthenia gravis, who presented to the hospital for dire ct admission from his Neurology Clinic with progressive myasthenia gravis symptoms, including worseni ng ptosis, increasing weakness and dysphagia. He was admitted to the hospital for further management . HOSPITAL COURSE: Patient was admitted to the medical-surgical unit. He was treated with IVIG for 5 days, in addition to low-dose prednisone. His Mestinon was initially held. He was noted to have sig nificant dysphagia, and he was evaluated by Speech Therapy. Video fluoroscopic swallow study showed silent aspiration with mixed consistencies, secondary to poor pharyngeal motility with significant po oling in the vallecula and piriform sinuses bilaterally. Strict n.p.o. recommendations were made. T he patient required PEG tube placement. He unfortunately inadvertently pulled out his PEG tube. Sev eral days later, GI evaluation, including EGD, was performed for consideration of repeat PEG tube. A t that time, he underwent air insufflation of his stomach. A CT scan after this procedure showed a l arge amount of pneumoperitoneum. Fortunately, this was identified before the patient developed sepsi s or symptoms of peritonitis. He was taken to the operating room for laparotomy, washout, and repair of his gastric perforation. A t that time, a large amount of blood was noted, which was likely secondary to bleeding after gastric perforation from inadvertent removal of his PEG tube. For that reason, his Eliquis was held for crispin ral days. The patient recovered well. He did have a PEG tube replaced at the time of surgery. He r equired TPN for several days, though he was eventually able to tolerate tube feeds, and these were ti trated to goal by the time of discharge without significant residuals. He titrated off TPN. His Megan carrillo was restarted prior to discharge. There was no further evidence of bleeding. With respect to his myasthenia gravis, he was restarted on Mestinon, using the short-acting version g iven the need to give it through a PEG tube. Neurology also recommended high-dose prednisone therapy for 1-2 months due to the risk of worsening myasthenia gravis if we try to taper this. He will need close followup with Neurology for further management of his high-dose prednisone and Mestinon therap y. He did have a postop ileus, but this resolved. He was having bowel movements. His abdomen is be nign, hemodynamically stable, and is ready to discharge from the hospital. DISPOSITION: The [facility]. FOLLOWUP: 1. Dr. Shelton Gomez, Neurology. 2. Dr. Tuan Majano, General Surgery. 3. Dr. Terrence Kennedy, Primary Care. DISCHARGE MEDICATIONS: Please see [employer] for complete updated outpatient medication list. New medications on discharge include Tylenol per tube; Eliquis 5 mg b.i.d. per tube; aspirin 81 mg da jeanine per tube; atorvastatin 40 mg daily per tube; metoprolol tartrate which is changed from metoprolol succinate to be given 12.5 mg b.i.d. per tube; prednisone 50 mg daily per tube; Mestinon 60 mg q.6 h ours daily per tube; and Seroquel 12.5 mg q.h.s. p.r.n. for agitation per tube. /[id number]/MODL
== END 2017-07-11 13:39 | DRG 981 ==
LOC: OBSVTOIN 17:34 → F2N 18:11 → F3E 06-24 13:35
PROVIDERS: ADMIT Internal Medicine; ATTEND Internal Medicine
PROC: 30233S1 Transfusion of Nonautologous Globulin into Peripheral Vein, Percutaneous Approach (ICD-10-PCS; 2017-06-23)
PROC: 0DH64UZ Insertion of Feeding Device into Stomach, Percutaneous Endoscopic Approach (ICD-10-PCS; 2017-06-29)
PROC: 0DB58ZX Excision of Esophagus, Via Natural or Artificial Opening Endoscopic, Diagnostic (ICD-10-PCS; 2017-07-04)
PROC: 0W9G0ZZ Drainage of Peritoneal Cavity, Open Approach (ICD-10-PCS; principal; 2017-07-04 16:30)
PROC: 0DH60UZ Insertion of Feeding Device into Stomach, Open Approach (ICD-10-PCS; principal; 2017-07-04 16:30)
PROC: 0DQ60ZZ Repair Stomach, Open Approach (ICD-10-PCS; principal; 2017-07-04 16:30)
PROC: 02HV33Z Insertion of Infusion Device into Superior Vena Cava, Percutaneous Approach (ICD-10-PCS; 2017-07-05)
PROC: 30233N1 Transfusion of Nonautologous Red Blood Cells into Peripheral Vein, Percutaneous Approach (ICD-10-PCS; 2017-07-05)
DX: G70.01 Myasthenia gravis with (acute) exacerbation (principal); R13.12 Dysphagia, oropharyngeal phase; H02.403 Unspecified ptosis of bilateral eyelids; K94.21 Gastrostomy hemorrhage; K66.8 Other specified disorders of peritoneum; S36.39XA Other injury of stomach, initial encounter; X58.XXXA Exposure to other specified factors, initial encounter; Y92.230 Patient room in hospital as the place of occurrence of the external cause; Y99.8 Other external cause status; K91.89 Other postprocedural complications and disorders of digestive system; K56.0 Paralytic ileus; E87.0 Hyperosmolality and hypernatremia; I10 Essential (primary) hypertension; I48.91 Unspecified atrial fibrillation; Z79.01 Long term (current) use of anticoagulants; F02.80 Dementia in other diseases classified elsewhere, unspecified severity, without behavioral disturbance, psychotic disturbance, mood disturbance, and anxiety; G93.40 Encephalopathy, unspecified; I65.22 Occlusion and stenosis of left carotid artery; E78.5 Hyperlipidemia, unspecified; Z86.73 Personal history of transient ischemic attack (TIA), and cerebral infarction without residual deficits; Z87.891 Personal history of nicotine dependence
CPT/HCPCS: 84134-90; 92507-GN; 92523-GN; 92526-GN; 92610-GN; 92611-GN; 97110-GO; 97112-GP; 97116-GP; 97161-GP; 97166-GO; 97530-GO; 97530-GP; 97535-GO; C1751; G8978-GP-CJ; G8979-GP-CI; G8987-GO-CJ; G8987-GO-CK; G8988-GO-CI; G8991-GO-CI; G8992-GO-CI; G8996-GN-CK; G8996-GN-CL; G8997-GN-CJ; G8997-GN-CK; G8998-GN-CK; G8998-GN-CL; G9168-GN-CK; G9169-GN-CJ; J0171; J0330; J0360; J0690; J1170; J1200; J1459; J1650; J2060; J2543; J2704; J3010; P9016; Q9967

== ENCOUNTER 2017-08-11 12:54 | Inpatient (IN) | payer OTHER, BC ==
[2017-08-11] MEDS ORDERED: IOPAMIDOL (ISOVUE 370) 100 ML BTL IV ONE (13:26)
[2017-08-11] MEDS ORDERED: ONDANSETRON DISINTEGRATING 4 MG TAB PO PRN (17:26)
[2017-08-11] MEDS ORDERED: ONDANSETRON 4 MG/2 ML VIAL IVP PRN (17:26)
[2017-08-11] MEDS ORDERED: ACETAMINOPHEN 325 MG TAB PO PRN (17:26)
[2017-08-11] MEDS ORDERED: EPINASTINE 0.05% 5 ML OPHT.BTL OP PRN (18:04)
[2017-08-11] MEDS ORDERED: ACETAMINOPHEN 325 MG TAB TUBE PRN (18:04)
--- NOTE | 2017-08-11 18:06 | GCON ---
[f rep st] CONSULTATION DATE OF CONSULTATION: 08/11/2017 CHIEF COMPLAINT: Vague abdominal pain with pneumatosis of the retroperitoneum. HISTORY OF PRESENT ILLNESS: This is an 81-year-old male known to me from an admission in June where he had a G-tube incident. At any rate, I ended up taking the patient to the operating room and replacing the gastrostomy tube. I have subsequently seen him in clinic and he is doing well. I got a call from his primary care physician earlier today stating that he had some abnormal liver function enzymes and the best way to proceed. At any rate, the patient underwent a CT scan of his abdomen earlier today and was found to have not only what appeared to be a dislodging of his G-tube but an extensive amount of pneumatosis within his retroperitoneum and I would say really minimal pneumoperitoneum. At any rate, I evaluated the patient in the holding area. His abdomen is benign. He does state that he does have some abdominal pain but really overall feels well. He received his tube feeds this morning which he underwent uneventfully. At any rate, I ended up taking the patient back to fluoro, inserting the G tube after deflating the balloon and reinflating it and it appears to be within the stomach. The patient has no complaints but given the fact that he has that extensive retroperitoneal pneumatosis, I am asking that he be admitted so that he can at least be monitored so we can ensure that the patient does not have anything that would require further treatment. The patient is amenable to this and will subsequently be admitted. Again, he really has no complaints, overall feels well, and is somewhat upset at the fact that I want to admit him to the hospital. PAST MEDICAL HISTORY: AFib, TIA, myasthenia gravis, hypertension, hyperlipidemia. PAST SURGICAL HISTORY: Carotid endarterectomy and an exploratory laparotomy for a misplaced PEG tube, on subsequent gastrostomy tube placement. SOCIAL HISTORY: Lives with . Recently got out of inpatient rehab. He is a previous smoker and he denies any illicit drug use. REVIEW OF SYSTEMS: A full 10-point review was performed. ALLERGIES: None. FAMILY HISTORY: Noncontributory. MEDICATIONS: Home medications were reviewed. Again, is actively on blood thinners for his AFib. PHYSICAL EXAMINATION: VITAL SIGNS: Temperature 36.6, blood pressure 139/80, heart rate is 80, and he is 94% on room air. CONSTITUTIONAL: He is in no apparent distress. He appears comfortable. EYES: His pupils are equal, round, and reactive to light and extraocular movements are intact. He has anicteric sclerae. EARS/NOSE/MOUTH/THROAT: He has moist mucous membranes. His hearing is normal. His ears appear normal. He has no mucosal ulcers. CARDIOVASCULAR: He has an irregular rate and rhythm but no murmurs. RESPIRATORY: No respiratory distress and he is clear. GI: His bowel sounds are active. His abdomen is soft, nondistended, nontender. His G-tube is appropriately sutured to the skin at the 6 cm richar. SKIN: Warm. Normal color. No rashes. MUSCULOSKELETAL: Full muscle strength. No tenderness. Normal joint range of motion. NEUROLOGIC: He is alert and oriented. He is a little bit confused but understands the situation. His cranial nerves appear intact. He does not appear to have any johan weakness. PSYCHIATRIC: He is interacting appropriately. He is not anxious. LYMPHATIC/HEMATOLOGIC/IMMUNOLOGIC: He does not have any appreciable lymphadenopathy. LABORATORIES: He had laboratory enzymes from today which show some mild elevation of his AST and ALT. CT scan shows extensive retroperitoneal pneumatosis and a likely displaced gastrostomy tube. These images were personally reviewed by me and discussed with the radiologist. ASSESSMENT AND PLAN: An 81-year-old male with multiple medical problems status post dislodgement of his gastrostomy tube and extensive retroperitoneal pneumatosis of unclear etiology. I successfully took the patient to fluoro, replaced his gastrostomy tube, and confirmed placement with a tube study using Gastrografin showing correct placement. Patient's abdomen is benign. It is unclear what is causing this retroperitoneal pneumatosis as the patient's abdomen is completely benign and none of this air is actually around his stomach or near his G-tube so I am unclear as to if these are related. At any rate, I do not know what is causing this. I do feel that bringing him in and at least monitoring him overnight and ensuring that things are getting better and that he continues to progress is well worth it. I discussed these findings with the on-call hospitalist, Dr. Pugh, as well as the patient and his , while hesitant, want him to be admitted as he feels well. He understands my reasoning to do so. We will plan to admit the patient, watch him, obtain labs, further imaging if required. I do not feel at this point in time that his clinical picture warrants aggressive operative interventions as I feel that the patient's abdominal exam is fairly benign but we will continue to monitor. /[id number]/MODL MTDD
[2017-08-11 19:12] LABS: % IMMATURE GRANULYOCYTES 1.6 % (0.0-1.1); ABSOLUTE IMMATURE GRANULOCYTES 0.13 10^3/uL (0.00-0.10); ADD DIFF? NO; ADD MORPH? NO; ADD SCAN? NO; ATYPICAL LYMPHOCYTE FLAG 0 (0-99); FRAGMENT RBC FLAG 0 (0-99); HEMATOCRIT 43.5 % (40.0-51.0); HEMOGLOBIN 15.3 g/dL (13.7-17.5); LEFT SHIFT FLG 10 (0-99); LIPEMIA HEMOLYSIS FLAG 90 (0-99); MEAN CELL HEMOGLOBIN CONCENTR. 35.2 g/dL (32.4-36.7); MEAN PLATELET VOLUME 9.8 fL (8.7-11.7); PLATELET CLUMPS FLAG 0 (0-99); PLATELET COUNT 132 10^3/uL (150-400); RED BLOOD CELL COUNT 4.63 10^6/uL (4.40-6.38); RED CELL DISTRIBUTION WIDTH 17.2 % (11.5-15.2)
[2017-08-11 19:29] LABS: ANION GAP 5 mEq/L (8-16); CALCIUM 8.8 mg/dL (8.5-10.4); CARBON DIOXIDE 26 mEq/l (22-31); CHLORIDE 106 mEq/L (97-110); CREATININE 0.7 mg/dL (0.7-1.3); GLOMERULAR FILTRATION RATE > 60; GLUCOSE 135 mg/dL (70-100); POTASSIUM 4.3 mEq/L (3.5-5.2); SODIUM 137 mEq/L (134-144)
[2017-08-11 19:38] LABS: % SATURATION 29 % (20-55); TOTAL IRON BINDING CAPACITY 245 ug/dL (260-490)
--- NOTE | 2017-08-11 20:27 | GHP ---
[f rep st] HISTORY AND PHYSICAL DATE OF ADMISSION: 08/11/2017 CHIEF COMPLAINT: Elevated LFTs and retroperitoneal air on CT scan. HISTORY OF PRESENT ILLNESS: Mr. Aguilar is an 81-year-old male who is known to me from a recent hospitalization for myasthenia gravis crisis and was discharged to SN[facility] rehab on tube feeds due to dysphagia. He presented to his PCP for followup today and was found to have elevated LFTs. A CT scan was ordered for further evaluation and this revealed a significant amount of intraperitoneal and retroperitoneal pneumoperitoneum with pneumomediastinum. Interestingly, the patient feels that he is in his baseline state of health. He denies fevers, chills, abdominal pain, nausea, vomiting, or diarrhea. He is mostly n.p.o. in the setting of advanced myasthenia gravis but is able to take some water and ice chips. He has been tolerating his bolus tube feeds. He vaguely endorses occasional epigastric discomfort. He has not previously had significantly elevated liver function tests. His recent hospitalization was complicated by pneumoperitoneum in the setting of him pulling out his PEG tube with subsequent endoscopy and attempts at replacing the PEG tube that may have contributed to free air in the setting of insufflation. He went to the operating room and had his PEG tube surgically secured. He did well postoperatively and has had no further problems at his SNF rehab. He has most recently been living at home with his . He does seem to have some dementia and due to some symptoms of agitation and sundowning he has been receiving low- dose Seroquel. He otherwise denies any other new medications, herbs, or supplements. He has been on a statin for 10 or 15 years and has tolerated this throughout. Given his CT findings and elevated LFTs he is admitted to the hospital for observation and further evaluation. PAST MEDICAL HISTORY: 1. Myasthenia gravis. 2. Atrial fibrillation. 3. Chronic anticoagulation on Eliquis. 4. Hypertension. 5. Hyperlipidemia. 6. History of carotid stenosis. 7. Presence of a PEG tube, on tube feeds. 8. Dysphagia; n.p.o. status with PEG tube, on tube feeds. MEDICATIONS: Please see [facility] for complete updated outpatient medication list. ALLERGIES: No known drug allergies. PAST SURGICAL HISTORY: Tonsillectomy. FAMILY HISTORY: His father had an DC. His mother had a stroke. SOCIAL HISTORY: Patient is . His is present at the bedside. He is currently living at home. He is really unable to do his activities of daily living independently. He is a former smoker with a [id number] history. Currently denies alcohol, tobacco, or drugs. REVIEW OF SYSTEMS: A 10-point review of systems was performed and was negative except as per HPI. OBJECTIVE: VITAL SIGNS: Temperature is 36.4, blood pressure 131/82, heart rate 84, respiratory rate 18, he is 94% on room air. GENERAL: The patient is awake, alert, in no acute distress. HEENT: Head is atraumatic, normocephalic. Pupils equal, round, and reactive to light. Extraocular muscles intact. Oropharynx is clear. Mucous membranes are moist. NECK: Supple. There is no JVD. HEART: Regular rate without murmur. LUNGS: Clear to auscultation bilaterally. ABDOMEN: Soft, nondistended. Minimal tenderness to palpation in the epigastrium and right upper quadrant without rebound, rigidity, or guarding. There are no peritoneal signs. There is a PEG tube present. It seems to be functioning properly. His abdominal exam is overall benign. EXTREMITIES: Without cyanosis, clubbing, or edema. NEUROLOGIC: He moves all 4 extremities. No focal neuro deficits. LABORATORY DATA: CBC reveals white blood cell count of 8, platelets are 132, hemoglobin is normal. Lactic acid is elevated at 2.4. CT abdomen angiogram with IV contrast shows gastrostomy tube with the balloon inflated superficial to the stomach. Extensive intraperitoneal and retroperitoneal pneumoperitoneum with pneumomediastinum. No evidence of drainable abscess. 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 Bilateral renal artery atherosclerotic stenosis. No hepatic masses, ascites, hepatomegaly, portal vein thrombosis, or biliary obstruction is identified. Fluoroscopy was performed and the G-tube was repositioned by the general surgeon. ASSESSMENT AND PLAN: Mr. Aguilar is an 81-year-old male with a history of myasthenia gravis and dysphagia requiring PEG tube who is directly admitted to the hospital after an outpatient CT scan revealed retroperitoneal air. 1. Pneumoperitoneum. It is unclear if this could be related to his previous problems with his gastrostomy tube. He required laparotomy on July 05 for pneumoperitoneum due to gastric wall perforation after he pulled out his PEG tube and then underwent endoscopy with insufflation. He is currently afebrile. He has a normal white count, though I do note an elevated lactic acid of 2.4. His abdominal exam is reassuring. The patient has been evaluated by General surgery and the plan is to observe him in the hospital and follow him clinically. I will trend his lactate, provide gentle IV fluid hydration. 2. Elevated LFTs. This is new in the past month. Consider medications. He has been on a statin for many years, which we'll hold. Seroquel is a possible offender, up to 6% of patients on Seroquel can develop elevated LFTs. Will hold this as well. A hepatitis panel is negative. CMV serologies are pending. I will also send iron studies to evaluate for hemochromatosis and check a TSH. If his LFTs do not trend down with holding his Seroquel and there is no evidence of an etiology on the above workup, consider further workup for autoimmune hepatitis, etc. Will trend his LFTs. 3. Myasthenia gravis. He was recently admitted for myasthenia gravis crisis. At that time, he was discovered to have severe dysphagia and has been maintained n.p.o. status on bolus tube feeds. He was seen by Neurology during recent hospitalization. His Pyridostigmine was increased to 60 mg 3 times daily. In addition he is maintained on high-dose prednisone 60 mg daily with plans to continue this for at least another month. Overall his condition seems stable on his current regimen. 4. Dysphagia with PEG. This was changed by general surgery today due to positional problem. Continue home tube feeds, need to find out his bolus regimen from his . 5. Atrial fibrillation. Patient is rate controlled on metoprolol, stroke prevention with Eliquis. We will continue these medications in addition to his daily aspirin. CODE STATUS: Patient is full code by default. I did not discuss this with him or his and this may need to be revisited tomorrow. DISPOSITION: Patient is admitted to inpatient status as I expect he will require greater than 48 hours hospitalization for ongoing workup and management of his elevated LFTs and pneumoperitoneum. /[id number]/MODL MTDD
[2017-08-11] MEDS: METOPROLOL TARTRATE 25 MG TAB TUBE SCH (22:09)
[2017-08-11] MEDS: APIXABAN 5 MG TAB TUBE SCH (22:10)
[2017-08-11] MEDS: PYRIDOSTIGMINE BROMIDE 60 MG TAB TUBE SCH (22:10)
[2017-08-12 04:29] LABS: ALANINE AMINOTRANSFERASE 359 IU/L (21-72); ALBUMIN 2.6 g/dL (3.5-5.0); ALKALINE PHOSPHATASE 75 IU/L (38-126); ANION GAP 4 mEq/L (8-16); ASPARTATE AMINOTRANSFERASE 92 IU/L (17-59); BILIRUBIN,TOTAL 1.2 mg/dL (0.1-1.4); CALCIUM 8.6 mg/dL (8.5-10.4); CARBON DIOXIDE 28 mEq/l (22-31); CHLORIDE 108 mEq/L (97-110); CREATININE 0.8 mg/dL (0.7-1.3); GLOMERULAR FILTRATION RATE > 60; GLUCOSE 87 mg/dL (70-100); POTASSIUM 4.3 mEq/L (3.5-5.2); SODIUM 140 mEq/L (134-144); TOTAL PROTEIN 4.7 g/dL (6.3-8.2)
[2017-08-12] MEDS ORDERED: ASPIRIN 81 MG CHEWABLE TAB TUBE SCH (09:00)
[2017-08-12] MEDS ORDERED: predniSONE 20 MG TAB TUBE SCH (09:00)
--- NOTE | 2017-08-12 09:03 | SOAPPROG ---
SOAP Progress Note Assessment/Plan: Assessment/Plan: - 81yo M c dislodged G tube, retroperitoneal air - no events overnight, no fevers, WBC normal, lactate normal. - Still cant explain retroperitoneal air, could have been from dislodged G tube ? really no other reason as clinically he is well and I have little suspicion for perforated viscus or bowel - restart feeds - Im ok with him going home today 08/12/17 09:01 Subjective: feels well, had no events overnight. Objective: Vital Signs Temp Pulse Resp BP Pulse Ox 36.4 C 86 14 142/79 H 96 08/12/17 07:50 08/12/17 07:50 08/12/17 07:50 08/12/17 07:50 08/12/17 07:50 Laboratory Results 08/11/17 19:00 08/12/17 04:00 08/11/17 08/12/17 08/13/17 05:59 05:59 05:59 Intake Total 0 Output Total 0 Balance 0 ICD10 Worksheet Patient Problems: Problems Problem Status Onset Facial droop Acute Left-sided weakness Acute Myasthenia exacerbation Acute Palliative care encounter Acute
[2017-08-12] MEDS: APIXABAN 5 MG TAB TUBE SCH (10:10)
[2017-08-12] MEDS: METOPROLOL TARTRATE 25 MG TAB TUBE SCH (10:10)
[2017-08-12] MEDS: PYRIDOSTIGMINE BROMIDE 60 MG TAB TUBE SCH ×2 (10:12→16:24)
--- NOTE | 2017-08-12 10:48 | PDMN ---
Medical Necessity Medical necessity: Pt meets IP criteria per MD; est los >2 mn for ongoing workup & management of elevated LFTs & pneumoperitoneum; hx myasthenia gravis, dysphagia w/PEG tube, AFIB on AC, HTN; per H&P & order 08/12/17
[2017-08-12 10:55] VITALS: BP 108/67; PULSE 77; RESP 18; TEMP 97.8; O2SAT 94
--- NOTE | 2017-08-12 15:18 | HOSPPROG ---
Hospitalist Progress Note Assessment/Plan: complex 81 yo m w end stage MG here w pneumoperitoneum, dislodged PEG PEG replaced benign abdomen home today > 30 minutes Subjective: benign abdomen. wishes for dc Objective: Vital Signs Temp Pulse Resp BP Pulse Ox 36.6 C 77 18 108/67 94 08/12/17 10:53 08/12/17 10:53 08/12/17 10:53 08/12/17 10:53 08/12/17 10:53 Laboratory Results 08/11/17 19:00 08/12/17 04:00 08/11/17 08/12/17 08/13/17 05:59 05:59 05:59 Intake Total 0 Output Total 0 Balance 0 - Physical Exam Constitutional: no apparent distress, appears nourished Eyes: PERRL, anicteric sclera Ears, Nose, Mouth, Throat: moist mucous membranes, hearing normal Cardiovascular: regular rate and rhythym, no murmur, rub, or gallop Respiratory: no respiratory distress, no rales or rhonchi Gastrointestinal: normoactive bowel sounds, soft, non-tender abdomen Genitourinary: no bladder fullness, yao in urethra Skin: warm, normal color Musculoskeletal: full muscle strength, no muscle tenderness Neurologic: AAOx3, sensation intact bilaterally Psychiatric: interacting appropriately Lymph, Heme, Immunologic: no cervical LAD ICD10 Worksheet Patient Problems: Problems Problem Status Onset Facial droop Acute Left-sided weakness Acute Myasthenia exacerbation Acute Palliative care encounter Acute
--- NOTE | 2017-08-12 16:06 | GDS ---
[f rep st] DISCHARGE SUMMARY DISCHARGE DIAGNOSES: 1. Pneumoperitoneum secondary to dislodged percutaneous endoscopic gastrostomy tube. 2. End-stage myasthenia gravis. 3. Peripheral vascular disease. Please see admission history and physical by Dr. Heather Pugh, as well as consultation by Dr. Tuan trammell. The patient presented with abnormal liver function tests to his primary care physician. He had a CT abdomen showing pneumoperitoneum numeral retroperitoneum. The patient has a benign abdom inal exam. He was seen by Dr. Majano, who knows him well. He took him back to [facility], and he in serted a G-tube, and has confirmed placement in the stomach. The patient and his are really jus t interested in going home. I discussed his clinical scenario and how pneumoperitoneum is typically a surgical emergency with high risk of infection the patient has a benign appearance, and they wish t o return home, and declining further evaluation. Regarding his LFTs, his ALT was 359, and it is down from 492 the other day and 440 two days ago. It has been was slightly elevated during his last hospitalization, but has otherwise been normal. He do es not have cirrhosis. This can be followed. /[id number]/MODL
--- NOTE | 2017-08-12 16:22 | ASMTCASEMG ---
Living Arrangements What is your living Answers: With Spouse arrangement? Who do you live with? Type Of Residence What kind of residence do Answers: House you live in? Discharge Plan Comments Coordination Status Comments Notes: Pt is a 81 y/o man admitted for elevated LFTs and retroperitoneal air. Pt was recently here at [facility] on 06/23 for myathenia gravis exacerbation and discharged on 07/11 to [facility]. Therapies have been ordered. OT is recommending home independent. Pt is being discharged today w/ [facility]; PT, OT, RN. CM sent d/c orders to [facility]. CM available for changes. Plan: [facility]; PT, OT, RN Date Signed: 08/12/2017 04:22 PM Electronically Signed By:PRAVIN Sevilla
== END 2017-08-12 17:11 | disposition home or self-care (01) | DRG 200 ==
LOC: FIMAGING 12:54 → F2W 17:04
PROVIDERS: ADMIT Hospitalist; ATTEND Hospitalist
PROC: 0DH63UZ Insertion of Feeding Device into Stomach, Percutaneous Approach (ICD-10-PCS; principal; 2017-08-11)
DX: J98.2 Interstitial emphysema (principal); K94.23 Gastrostomy malfunction; J93.9 Pneumothorax, unspecified; G70.00 Myasthenia gravis without (acute) exacerbation; I73.9 Peripheral vascular disease, unspecified; I48.91 Unspecified atrial fibrillation; I10 Essential (primary) hypertension; E78.5 Hyperlipidemia, unspecified; Z79.01 Long term (current) use of anticoagulants
CPT/HCPCS: 36415-PO; 86644-90; 86645-90; 86705-90; 86709-90; 97165-GO; G0463-PO; G0472; G8987-GO-CI; G8988-GO-CI; Q9967